=== PATIENT | male | born 1955 | race Caucasian/White ===

== ENCOUNTER 2020-09-15 08:07 | Outpatient (REF) | payer OTHER, SELFPAY ==
[2020-09-15 08:55] LABS: MANUAL DIFF FLAG NO
[2020-09-15 08:59] LABS: Basophils Percent Auto 0.4 % (0-2); Eosinophils Absolute Auto 0.1 X10*3/uL (0.0-0.4); Eosinophils Percent Auto 1.9 % (0-4); Hematocrit 42.1 % (42-52); Hemoglobin 14.4 g/dl (14.0-18.0); Imm Gran Abs Auto 0.01 X10*3/uL (0.00-0.03); Imm Gran Pct Auto 0.2 % (0.0-0.4); Lymphocytes Absolute Auto 2.2 X10*3/uL (1.2-4.9); Lymphocytes Percent Auto 41.8 % (20-40); Mean Corpuscular HGB Conc 34.2 g/dl (31.0-36.0); Mean Corpuscular Hemoglobin 30.4 pg (27.0-33.0); Mean Corpuscular Volume 88.8 fL (80-98); Mean Platelet Volume 10.1 fL (9.4-12.4); Monocytes Absolute Auto 0.4 X10*3/uL (0.1-1.2); Monocytes Percent Auto 8.6 % (2-11); Neutrophils Absolute Auto 2.4 X10*3/uL (2.0-8.3); Neutrophils Percent Auto 47.1 % (45-73); Platelet Count 252 X10*3/uL (160-400); Red Blood Count 4.74 X10*6/uL (4.60-5.80); Red Cell Distribution Width 11.9 % (11.0-16.0); White Blood Count 5.1 X10*3/uL (4.8-10.8)
[2020-09-15 09:31] LABS: Alanine Aminotransferase 18 U/L (0-40); Albumin Level 4.1 g/dL (3.5-5.0); Alkaline Phosphatase 57 U/L (39-117); Aspartate Amino Transferase 19 U/L (5-37); Bilirubin Total 0.7 mg/dL (0.0-1.0); Cholesterol 195 mg/dL; Estimated Glomerular Filt Rate > 60; Glucose Fasting 93 mg/dL (60-99); HDL Cholesterol 54 mg/dL; LDL Cholesterol Calculated 129 mg/dl; Total Protein 7.2 g/dL (6.5-8.0); Triglycerides 60 mg/dL
[2020-09-15 09:47] LABS: Anion Gap 11 (12-20); Blood Urea Nitrogen 14 mg/dL (9-16); Calcium 8.7 mg/dL (8.4-10.2); Carbon Dioxide 29 mmol/L (22-29); Chloride 102 mmol/L (96-108); Potassium 4.4 mmol/l (3.3-5.1); Sodium 138 mmol/L (135-145)
[2020-09-15 09:52] LABS: Prostate Specific Antigen 0.96 ng/mL (<0.05-4.0)
== END 2020-09-15 08:08 | disposition home or self-care (01) ==
LOC: HO.LAB 08:07
PROVIDERS: PCP Internal Medicine Medical Oncology; Visit Provider Internal Medicine Medical Oncology
DX: Z00.00 Encounter for general adult medical examination without abnormal findings (principal); E78.5 Hyperlipidemia, unspecified
CPT/HCPCS: 36415; 80053; 80061; 84153; 85025

== ENCOUNTER 2021-07-28 08:59 | Outpatient (REF) | payer OTHER, SELFPAY ==
[2021-07-28 10:01] LABS: MANUAL DIFF FLAG NO
[2021-07-28 10:11] LABS: Basophils Percent Auto 0.2 % (0-2); Eosinophils Absolute Auto 0.2 X10*3/uL (0.0-0.4); Eosinophils Percent Auto 2.7 % (0-4); Hematocrit 42.6 % (42-52); Hemoglobin 14.3 g/dl (14.0-18.0); Imm Gran Abs Auto 0.01 X10*3/uL (0.00-0.03); Imm Gran Pct Auto 0.2 % (0.0-0.4); Lymphocytes Percent Auto 36.2 % (20-40); Mean Corpuscular HGB Conc 33.6 g/dl (31.0-36.0); Mean Corpuscular Volume 89.5 fL (80-98); Mean Platelet Volume 10.3 fL (9.4-12.4); Monocytes Absolute Auto 0.6 X10*3/uL (0.1-1.2); Monocytes Percent Auto 10.2 % (2-11); Neutrophils Absolute Auto 2.8 X10*3/uL (2.0-8.3); Neutrophils Percent Auto 50.5 % (45-73); Platelet Count 261 X10*3/uL (160-400); Red Blood Count 4.76 X10*6/uL (4.60-5.80); Red Cell Distribution Width 12.2 % (11.0-16.0); White Blood Count 5.5 X10*3/uL (4.8-10.8)
[2021-07-28 10:26] LABS: Alanine Aminotransferase 18 U/L (0-40); Albumin Level 4.2 g/dL (3.5-5.0); Alkaline Phosphatase 57 U/L (39-117); Anion Gap 11 (12-20); Aspartate Amino Transferase 17 U/L (5-37); Bilirubin Total 0.4 mg/dL (0.0-1.0); Blood Urea Nitrogen 13 mg/dL (9-16); Calcium 9.6 mg/dL (8.4-10.2); Carbon Dioxide 30 mmol/L (22-29); Chloride 106 mmol/L (96-108); Cholesterol 202 mg/dL; Estimated Glomerular Filt Rate > 60; Glucose Fasting 97 mg/dL (60-99); HDL Cholesterol 54 mg/dL; LDL Cholesterol Calculated 138 mg/dl; Potassium 5.6 mmol/L (3.3-5.1); Sodium 141 mmol/L (135-145); Total Protein 7.3 g/dL (6.5-8.0); Triglycerides 52 mg/dL
[2021-07-28 11:07] LABS: Prostate Specific Antigen 0.92 ng/mL (<0.05-4.0)
== END 2021-07-28 09:00 | disposition home or self-care (01) ==
LOC: HO.LAB 08:59
PROVIDERS: PCP Internal Medicine Medical Oncology; Visit Provider Internal Medicine Medical Oncology
DX: Z00.00 Encounter for general adult medical examination without abnormal findings (principal)
CPT/HCPCS: 36415; 80053; 80061; 84153; 85025

== ENCOUNTER 2021-08-15 14:07 | Outpatient (REF) | payer OTHER, SELFPAY ==
--- NOTE | ~2021-08-15 | XR_ITS ---
EXAMINATION: XR CHEST CLINICAL INFORMATION: Chest pain. Neck pain. COMPARISON: Chest radiograph dated 08/06/2019. TECHNIQUE: 2 views of the chest were obtained. FINDINGS: Pectus excavatum is redemonstrating with slight opacity overlying the right chest, unchanged. No new airspace consolidation. Healed left rib fractures. No pleural effusion or pneumothorax. Stable cardiomediastinal silhouette. XR/XR chest 2V IMPRESSION: No acute cardiopulmonary findings.
--- NOTE | ~2021-08-15 | XR_ITS ---
EXAMINATION: XR CERVICAL SPINE CLINICAL INFORMATION: Chest pain. Neck pain. COMPARISON: None TECHNIQUE: AP, lateral, open-mouth, and foraminal views of the cervical spine. FINDINGS: Normal vertebral body alignment. The cervical lordosis is maintained. No acute fracture or subluxation. Normal atlantoaxial alignment. No loss of vertebral body height. Loss of intervertebral disc height with tiny endplate osteophytes at C5-C6. No lytic or blastic osseous lesion. Unremarkable prevertebral soft tissues. XR/XR cervical spine 3V IMPRESSION: Mild degenerative disc disease at C5-C6.
== END 2021-08-15 14:08 | disposition home or self-care (01) ==
LOC: HO.XRAY 14:07
PROVIDERS: PCP Internal Medicine Medical Oncology; Visit Provider Internal Medicine Medical Oncology
DX: R07.9 Chest pain, unspecified (principal); M54.2 Cervicalgia
CPT/HCPCS: 71046; 72040

== ENCOUNTER 2022-07-17 09:37 | Outpatient (REF) | payer OTHER, SELFPAY ==
[2022-07-17 09:46] LABS: MANUAL DIFF FLAG NO
[2022-07-17 10:46] LABS: Basophils Percent Auto 0.3 % (0-2); Eosinophils Absolute Auto 0.2 X10*3/uL (0.0-0.4); Eosinophils Percent Auto 2.3 % (0-4); Imm Gran Abs Auto 0.01 X10*3/uL (0.00-0.03); Imm Gran Pct Auto 0.1 % (0.0-0.4); Lymphocytes Absolute Auto 2.4 X10*3/uL (1.2-4.9); Lymphocytes Percent Auto 32.4 % (20-40); Mean Corpuscular HGB Conc 34.1 g/dl (31.0-36.0); Mean Corpuscular Hemoglobin 29.8 pg (27.0-33.0); Mean Corpuscular Volume 87.3 fL (80.0-98.0); Mean Platelet Volume 9.3 fL (9.4-12.4); Monocytes Absolute Auto 0.6 X10*3/uL (0.1-1.2); Monocytes Percent Auto 8.4 % (2-11); Neutrophils Absolute Auto 4.3 x10*3/uL (2.0-8.3); Neutrophils Percent Auto 56.5 % (45-73); Platelet Count 273 X10*3/uL (160-400); Red Blood Count 5.04 X10*6/uL (4.60-5.80); Red Cell Distribution Width 12.6 % (11.0-16.0); White Blood Count 7.5 X10*3/uL (4.8-10.8)
[2022-07-17 11:17] LABS: Cholesterol 185 mg/dL; HDL Cholesterol 60 mg/dL; LDL Cholesterol Calculated 116 mg/dl; Triglycerides 48 mg/dL
[2022-07-17 11:29] LABS: Prostate Specific Antigen 0.78 ng/mL (<0.05-4.0)
== END 2022-07-17 09:38 | disposition home or self-care (01) ==
LOC: HO.LAB 09:37
PROVIDERS: PCP Internal Medicine Medical Oncology; Visit Provider Internal Medicine Medical Oncology
DX: Z00.00 Encounter for general adult medical examination without abnormal findings (principal); Z12.5 Encounter for screening for malignant neoplasm of prostate
CPT/HCPCS: 36415; 80061; 84153; 85025

== ENCOUNTER 2022-08-28 12:18 | Outpatient (REF) | payer OTHER, SELFPAY ==
[2022-08-28 13:40] LABS: MANUAL DIFF FLAG NO
[2022-08-28 13:52] LABS: Basophils Percent Auto 0.2 % (0-2); Eosinophils Absolute Auto 0.1 X10*3/uL (0.0-0.4); Eosinophils Percent Auto 0.4 % (0-4); Hematocrit 41.3 % (42.0-52.0); Hemoglobin 14.2 g/dl (14.0-18.0); Imm Gran Abs Auto 0.06 X10*3/uL (0.00-0.03); Imm Gran Pct Auto 0.5 % (0.0-0.4); Lymphocytes Absolute Auto 1.4 X10*3/uL (1.2-4.9); Lymphocytes Percent Auto 10.2 % (20-40); Mean Corpuscular HGB Conc 34.4 g/dl (31.0-36.0); Mean Corpuscular Hemoglobin 30.2 pg (27.0-33.0); Mean Corpuscular Volume 87.9 fL (80.0-98.0); Mean Platelet Volume 9.8 fL (9.4-12.4); Monocytes Absolute Auto 0.9 X10*3/uL (0.1-1.2); Monocytes Percent Auto 6.7 % (2-11); Neutrophils Absolute Auto 10.8 x10*3/uL (2.0-8.3); Platelet Count 275 X10*3/uL (160-400); Red Cell Distribution Width 12.8 % (11.0-16.0); White Blood Count 13.2 X10*3/uL (4.8-10.8)
[2022-08-28 14:31] LABS: Alanine Aminotransferase 16 U/L (0-40); Albumin Level 4.2 g/dL (3.5-5.0); Alkaline Phosphatase 68 U/L (39-117); Anion Gap 17 (12-20); Aspartate Amino Transferase 15 U/L (5-37); Bilirubin Total 0.8 mg/dL (0.0-1.0); Blood Urea Nitrogen 14 mg/dL (9-16); Calcium 9.4 mg/dL (8.4-10.2); Carbon Dioxide 28 mmol/L (22-29); Chloride 99 mmol/L (96-108); Estimated Glomerular Filt Rate > 60; Glucose Random 81 mg/dL (60-115); Potassium 4.7 mmol/L (3.3-5.1); Sodium 139 mmol/L (135-145); Total Protein 7.2 g/dL (6.5-8.0)
[2022-08-28 14:45] LABS: Erythrocyte Sedimentation Rate 23 MM/HR (0-15)
== END 2022-08-28 12:19 | disposition home or self-care (01) ==
LOC: HO.10HDL 12:18
PROVIDERS: Visit Provider Internal Medicine Medical Oncology
DX: R10.31 Right lower quadrant pain (principal); R05.9 Cough, unspecified; K37 Unspecified appendicitis
CPT/HCPCS: 36415; 80053; 85025; 85652

== ENCOUNTER 2022-09-06 06:06 | Outpatient (REF) | payer OTHER, SELFPAY ==
--- NOTE | ~2022-09-06 | CT_ITS ---
EXAMINATION: CT ABDOMEN AND PELVIS WITH CONTRAST CLINICAL INFORMATION: Right lower quadrant pain and fever. COMPARISON: None TECHNIQUE: Multidetector volumetric images were obtained from the superior aspect of the liver through the pubic symphysis following administration 85 mL of Omnipaque 350 intravenous contrast. Sagittal and coronal reformatted images were obtained on the technologist's workstation. Oral contrast: Yes This CT examination was performed using dose optimization techniques as appropriate, variously including the following: *Automated exposure control *Adjustment of mA and/or kV according to patient size (this includes techniques or standardized protocols for targeted exams where dose is matched to indication/reason for exam; i.e. extremities or head) *Use of iterative reconstruction technique DLP: 255 mGy-cm FINDINGS: LUNG BASES: The visualized lung bases are unremarkable. LIVER, GALLBLADDER, AND BILIARY TREE: The liver is normal in size, shape, and attenuation. No biliary ductal dilatation. There are a few subcentimeter hypoattenuating lesions seen scattered in the liver parenchyma which are too small to fully characterize.. The gallbladder is unremarkable with no evidence of radiopaque gallstones, gallbladder wall thickening, or obvious pericholecystic inflammatory changes. PANCREAS: Unremarkable. SPLEEN: Unremarkable. ADRENAL GLANDS: Unremarkable. KIDNEYS AND URETERS: The kidneys are normal in size, shape, and attenuation. No hydronephrosis, hydroureter, or calculi seen. No perinephric stranding. BLADDER: Partially distended with prominent circumferential wall thickening. GASTROINTESTINAL TRACT: The stomach is unremarkable. Normal caliber of the small bowel. There is no obstruction. No colonic wall thickening or inflammatory change. Large colonic stool burden. The appendix is dilated measuring 1 cm. There appears to be appendiceal wall thickening with no internal fluid. Very faint adjacent inflammation of the fat surrounding the appendix. No fluid collection or free air. ABDOMINAL WALL: No significant hernia is appreciated. LYMPH NODES: Normal. VASCULAR: Unremarkable. PELVIC VISCERA: Enlarged prostate measures 5.6 cm transverse. OSSEOUS STRUCTURES: No acute or suspicious osseous abnormality. Mild degenerative changes in the hips. CT/CT abdomen pelvis w IV con IMPRESSION: 1. Dilated appendix with wall thickening and mild adjacent inflammation. This is concerning for acute appendicitis. 2. Prominent circumferential wall thickening of the bladder. This could be associated with cystitis or chronic outlet obstruction. 3. Large colonic stool burden. Fleischner guidelines were followed.
[2022-09-06] MEDS: Barium Sulfate Oral (Vanilla) 450 ML ORAL.SUSP 900 ML PO (08:20)
[2022-09-06] MEDS: iohexoL 350 MG/ML 100 ML INFUS..BTL IV (08:21)
== END 2022-09-06 06:07 | disposition home or self-care (01) ==
LOC: HO.CT 06:06
PROVIDERS: PCP Internal Medicine Medical Oncology; Visit Provider Internal Medicine Medical Oncology
DX: R10.31 Right lower quadrant pain (principal); R50.9 Fever, unspecified
CPT/HCPCS: 74177; Q9967

== ENCOUNTER 2022-09-07 06:30 | Day surgery (SDC) | payer OTHER, SELFPAY ==
[2022-09-07] VITALS (11 sets, daily range): BP systolic 107–146; BP diastolic 62–87; PULSE 46–62; RESP 15–20; TEMP 36.3–37.2; O2SAT 98–100; BMI 19.3
[2022-09-07 06:48] LABS: MANUAL DIFF FLAG NO
[2022-09-07 06:49] LABS: Basophils Percent Auto 0.4 % (0-2); Eosinophils Absolute Auto 0.1 X10*3/uL (0.0-0.4); Eosinophils Percent Auto 1.8 % (0-4); Hematocrit 41.1 % (42.0-52.0); Hemoglobin 13.8 g/dl (14.0-18.0); Imm Gran Abs Auto 0.03 X10*3/uL (0.00-0.03); Imm Gran Pct Auto 0.4 % (0.0-0.4); Lymphocytes Percent Auto 28.8 % (20-40); Mean Corpuscular HGB Conc 33.6 g/dl (31.0-36.0); Mean Corpuscular Hemoglobin 29.9 pg (27.0-33.0); Mean Corpuscular Volume 89.2 fL (80.0-98.0); Mean Platelet Volume 8.9 fL (9.4-12.4); Monocytes Absolute Auto 0.7 X10*3/uL (0.1-1.2); Monocytes Percent Auto 10.5 % (2-11); Neutrophils Absolute Auto 3.9 x10*3/uL (2.0-8.3); Neutrophils Percent Auto 58.1 % (45-73); Platelet Count 321 X10*3/uL (160-400); Red Blood Count 4.61 X10*6/uL (4.60-5.80); White Blood Count 6.8 X10*3/uL (4.8-10.8)
[2022-09-07 07:06] LABS: Alanine Aminotransferase 42 U/L (0-40); Alkaline Phosphatase 47 U/L (39-117); Anion Gap 16 (12-20); Aspartate Amino Transferase 30 U/L (5-37); Bilirubin Total 0.5 mg/dL (0.0-1.0); Blood Urea Nitrogen 11 mg/dL (9-16); Calcium 8.7 mg/dL (8.4-10.2); Carbon Dioxide 26 mmol/L (22-29); Chloride 104 mmol/L (96-108); Creatinine Clr Calc Pharmacy 70.2; Estimated Glomerular Filt Rate > 60; Glucose Random 96 mg/dL (60-115); Lipase 21 U/L (8-78); Potassium 4.6 mmol/L (3.3-5.1); Sodium 141 mmol/L (135-145); Total Protein 6.6 g/dL (6.5-8.0)
--- NOTE | 2022-09-07 07:18 | ED.ABDPAIN ---
HPI - Abdominal Pain General Chief Complaint: Abdominal Pain Stated Complaint: Abd pain Time Seen by Provider: 09/07/22 07:17 Source: patient Mode of arrival: ambulatory Limitations: no limitations History of Present Illness HPI narrative: 66 yo male no sig PMH here with c/o RLQ pain for the past week with a fever of 102. He did start on cipro and flagyl but symptoms persisted with lingering cramps and anorexia. PCP did CT Scan which showed appendicitis yesterday. Referred to ED MD elicited complaint: abdominal pain Pertinent past history: none Onset (ago): week(s) (last week) Pain Consistency: intermittent Location: RLQ Severity: mild Quality: cramping Radiation: none Migration to: no migration Exacerbating factors: nothing Relieving factors: nothing Context: other (started out with cramping and fever of 102) Associated symptoms: fever and anorexia Treatments prior to arrival: other (has been on cipro and flagyl today would be last day CT scan still showing appendicitis) Related Data Allergies Allergy/AdvReac Type Severity Reaction Status Date / Time No Known Allergies Allergy Verified 09/07/22 06:37 Review of Systems Review of Systems Constitutional : No Weight loss, No Fever, No Chills, pos anorexia ENT/Mouth : No sore throat, No Rhinorrhea Eyes: No Swelling, No Redness Cardiovascular : No Chest Pain, No SOB, NoEdema Respiratory : No Cough, No Sputum, No Wheezing Gastrointestinal : no Nausea, no Vomiting, no Diarrhea, positive abdominal Pain, No Hematochezia, No Melena Genitourinary : No Dysuria, No Urinary Frequency, No Hematuria, No Urgency Musculoskeletal : No joint pain, No Myalgias, No Joint Swelling Skin : No Skin Lesions, No rash Neuro : No Weakness, No Numbness, No Dizziness, No Headache Psych : No Anxiety/Panic, No Depression Heme/Lymph: No Bruising, No Lymphadenopathy Endocrine : No Polyuria, No Polydipsia All other systems reviewed and are negative. [facility] Past Medical History Attestation statement: The following information was validated with the patient. Medical History (Updated 09/07/22 @ 08:19 by Brando Barreto MD) No pertinent past medical history Spontaneous pneumothorax Surgical History (Updated 09/07/22 @ 08:19 by Brando Barreto MD) H/O inguinal hernia repair History of thoracic surgery Social History Social History (Updated 09/07/22 @ 07:30 by Anette Mcgowan DO) Patient Tobacco Use Status: Never used Tobacco Smoked in Last 30 Days: No Substance Use Type: Marijuana Advance Directives: No Advance Directives Information Provided: Yes Physical Exam ED Vital Signs: Vital Signs - 24 hr 09/07/22 06:33 09/07/22 07:44 Temperature 98.9 F 98.6 F Pulse Rate 55 50 Respiratory Rate 15 16 Blood Pressure 138/63 125/75 Pulse Oximetry 98 100 Oxygen Delivery Method Room Air Room Air BMI result Body Mass Index 19.3 Appearance: Alert. Oriented X3. No acute distress. Eyes: Pupils equal, round and reactive to light. ENT: Pharynx normal. Neck: Normal inspection. Neck supple. CVS: Normal heart rate and rhythm. Pulses normal. Respiratory: No respiratory distress. Breath sounds normal. Abdomen: Soft and mild RLQ ttp and mild Rovsing's sign no rebound or guarding Skin: Skin warm and dry. Normal skin color. Normal skin turgor. Extremities: No lower extremity edema. No calf ttp Neuro: Oriented X 3. No motor deficit. No sensory deficit. Course Course Course Narrative: Dr. Barreto to admit patient MDM - Abdominal Pain MDM Narrative Medical decision making narrative: 66 yo male with hx of lower abdominal pain prior fevers has been on cipro and flagyl but anorexia and cramps persist. CT scan shows appendiceal inflammation and dilation - message sent to general surgery would expect that given persistent symptoms he likely will fail coming off antibitoics but that is to be determined by Dr. Barreto. Dispo per his input. Will give dose of zosyn in ED. Lab Data Result diagrams: 09/07/22 06:40 09/07/22 06:40 Labs: Lab Results 09/07/22 09/07/22 09/07/22 Range/Units 06:40 06:40 07:38 WBC 6.8 (4.8-10.8) X10*3/uL RBC 4.61 (4.60-5.80) X10*6/uL Hgb 13.8 L (14.0-18.0) g/dl Hct 41.1 L (42.0-52.0) % MCV 89.2 (80.0-98.0) fL MCH 29.9 (27.0-33.0) pg MCHC 33.6 (31.0-36.0) g/dl RDW 13.0 (11.0-16.0) % Plt Count 321 (160-400) X10*3/uL MPV 8.9 L (9.4-12.4) fL Immature Gran % (Auto) 0.4 (0.0-0.4) % Neut % (Auto) 58.1 (45-73) % Lymph % (Auto) 28.8 (20-40) % [place] % (Auto) 10.5 (2-11) % Eos % (Auto) 1.8 (0-4) % Baso % (Auto) 0.4 (0-2) % Lymph # (Auto) 2.0 (1.2-4.9) X10*3/uL [place] # (Auto) 0.7 (0.1-1.2) X10*3/uL Eos # (Auto) 0.1 (0.0-0.4) X10*3/uL Baso # (Auto) 0.0 (0.0-0.2) X10*3/uL Abs Immat Gran (auto) 0.03 (0.00-0.03) X10*3/uL Absolute Neuts (auto) 3.9 (2.0-8.3) x10*3/uL Absolute Nucleated RBC 0.000 (0.0-0.012) X10*3/uL Nucleated RBC % (auto) 0.0 (0.0-0.2) /100WBC PT 13.6 H (10.0-13.1) SEC INR 1.2 H (0.9-1.1) APTT 32.9 (26.0-36.4) SEC Sodium 141 (135-145) mmol/L Potassium 4.6 (3.3-5.1) mmol/L Chloride 104 (96-108) mmol/L Carbon Dioxide 26 (22-29) mmol/L Anion Gap 16 (12-20) BUN 11 (9-16) mg/dL Creatinine 0.92 (0.5-1.4) mg/dL Estim Creat Clear Calc 70.2 Estimated GFR > 60 Random Glucose 96 (60-115) mg/dL Calcium 8.7 D (8.4-10.2) mg/dL Total Bilirubin 0.5 (0.0-1.0) mg/dL AST 30 D (5-37) U/L ALT 42 H (0-40) U/L Alkaline Phosphatase 47 D (39-117) U/L Total Protein 6.6 (6.5-8.0) g/dL Albumin 4.0 (3.5-5.0) g/dL Lipase 21 (8-78) U/L COVID-19 ([facility]) (Negative) COVID-19 Clin Com 09/07/22 Range/Units 07:38 WBC (4.8-10.8) X10*3/uL RBC (4.60-5.80) X10*6/uL Hgb (14.0-18.0) g/dl Hct (42.0-52.0) % MCV (80.0-98.0) fL MCH (27.0-33.0) pg MCHC (31.0-36.0) g/dl RDW (11.0-16.0) % Plt Count (160-400) X10*3/uL MPV (9.4-12.4) fL Immature Gran % (Auto) (0.0-0.4) % Neut % (Auto) (45-73) % Lymph % (Auto) (20-40) % [place] % (Auto) (2-11) % Eos % (Auto) (0-4) % Baso % (Auto) (0-2) % Lymph # (Auto) (1.2-4.9) X10*3/uL [place] # (Auto) (0.1-1.2) X10*3/uL Eos # (Auto) (0.0-0.4) X10*3/uL Baso # (Auto) (0.0-0.2) X10*3/uL Abs Immat Gran (auto) (0.00-0.03) X10*3/uL Absolute Neuts (auto) (2.0-8.3) x10*3/uL Absolute Nucleated RBC (0.0-0.012) X10*3/uL Nucleated RBC % (auto) (0.0-0.2) /100WBC PT (10.0-13.1) SEC INR (0.9-1.1) APTT (26.0-36.4) SEC Sodium (135-145) mmol/L Potassium (3.3-5.1) mmol/L Chloride (96-108) mmol/L Carbon Dioxide (22-29) mmol/L Anion Gap (12-20) BUN (9-16) mg/dL Creatinine (0.5-1.4) mg/dL Estim Creat Clear Calc Estimated GFR Random Glucose (60-115) mg/dL Calcium (8.4-10.2) mg/dL Total Bilirubin (0.0-1.0) mg/dL AST (5-37) U/L ALT (0-40) U/L Alkaline Phosphatase (39-117) U/L Total Protein (6.5-8.0) g/dL Albumin (3.5-5.0) g/dL Lipase (8-78) U/L COVID-19 ([facility]) Negative (Negative) COVID-19 Clin Com See Note Discharge Plan Discharge Clinical Impression: Acute appendicitis Qualifiers: Acute appendicitis type: with localized peritonitis Appendicitis gangrene presence: without gangrene Appendicitis perforation presence: without perforation Appendicitis abscess presence: without abscess Qualified Code(s): K35.30 - Acute appendicitis with localized peritonitis, without perforation or gangrene Patient Disposition: Admitted As Inpatient
[2022-09-07] MEDS: 0.9 % Sodium Chloride 1,000 ML 999 ML IV (07:40)
[2022-09-07] MEDS: Piperacillin Sodium/Tazobactam 3.375 GM in 0.9 % Sodium Chloride 50 ML IV (07:43)
[2022-09-07 07:56] LABS: INTERNATIONAL NORM RATIO 1.2 (0.9-1.1); Prothrombin Time 13.6 SEC (10.0-13.1)
[2022-09-07 07:59] LABS: COVID-19 Test Negative (Negative); IDNOW Serial# 16C4AD1C; Partial Thromboplastin Time 32.9 SEC (26.0-36.4)
--- NOTE | 2022-09-07 08:15 | PM.HPGS ---
History of Present Illness History of Present Illness Date of Service: 09/07/22 Chief complaint: Abd pain Narrative: Jeffrey Peoples is a 66 year old male presenting with complaints of abdominal pain beginning in the periumbilical region and then radiating to the bilateral abdomen. The pain began 1 week ago. He was subsequently started on antibiotics as an outpatient and arrangements made for CT abdomen and pelvis. The CT was performed yesterday morning and revealed thickening of the appendix without evidence of periappendiceal fluid or abscess. Findings were suggestive of early appendicitis. Patient's initial WBC earlier in the week was elevated but is now normal. He continues to have abdominal pain in the right lower quadrant despite being on the antibiotics. He was sent to the emergency department for further evaluation And possible appendectomy. Review of Systems Review of Systems: Yes all other systems are reviewed and are negative Constitutional: Constitutional: Denies chills, Denies fever(s), Denies headache(s), Denies poor appetite and Denies weakness ENT: Denies headache(s) Cardiovascular: Cardiovascular: Denies chest pain, Denies irregular heart rhythm, Denies palpitations and Denies dyspnea Respiratory: Respiratory: Denies cough, Denies excessive phlegm production and Denies dyspnea Gastrointestinal: Gastrointestinal: Reports abdominal pain, Denies bloating, Denies change in bowel habits, Denies constipation, Denies heartburn, Denies diarrhea, Reports nausea and Reports vomiting Genitourinary: Genitourinary: Denies difficulty urinating and Denies urinary frequency Musculoskeletal: Musculoskeletal: Denies back pain, Denies muscle weakness and Denies numbness Integumentary/Breasts: Skin/Breast: Denies changing lesions and Denies unusual bruising Neurologic: Denies headache(s), Denies numbness, Denies paresthesias and Denies weakness Psychiatric: Psychiatric: Denies anxiety and Denies depression Endocrine: Endocrine: Denies palpitations Hematologic/Lymphatic: Hematologic/Lymphatic: Denies lymphadenopathy PMFSH Past Medical History Medical History (Updated 09/07/22 @ 08:19 by Brando Barreto MD) No pertinent past medical history Spontaneous pneumothorax Surgical History Surgical History (Updated 09/07/22 @ 08:19 by Brando Barreto MD) H/O inguinal hernia repair History of thoracic surgery Social History Social History (Updated 09/07/22 @ 07:30 by Anette [place], DO) Patient Tobacco Use Status: Never used Tobacco Smoked in Last 30 Days: No Use of substances other than those prescribed or required for medical reasons: Yes Substance Use Type: Marijuana Substance Use Type Other:: smoke maybe twice per year Substance Use Frequency: Occasionally Are you DNR?: No Advance Directives: No Advance Directives Information Provided: Yes Meds Allergies Allergy/AdvReac Type Severity Reaction Status Date / Time No Known Allergies Allergy Verified 09/07/22 06:37 Active Medications: Current Medications Sodium Chloride (Ns) 1,000 mls @ 999 mls/hr IV .Q1H1M OENL Stop: 09/07/22 08:30 Last Admin: 09/07/22 07:40 Dose: 999 mls/hr Home Medications Medication Instructions Recorded Confirmed Last Taken Type No Known Home Meds 09/07/22 09/07/22 Unknown History Physical Exam Vital Signs: Vital Signs: Last Vital Signs Temp 98.6 F 09/07/22 07:44 Pulse 50 09/07/22 07:44 Resp 16 09/07/22 07:44 BP 125/75 09/07/22 07:44 Pulse Ox 100 09/07/22 07:44 O2 Del Method 09/07/22 07:44 BMI result Body Mass Index 19.3 Const: General: cooperative and no acute distress Nutritional Appearance: well nourished Orientation/consciousness: patient oriented x3 Limitations: no limitations HEENT: Head: Yes normocephalic and Yes atraumatic Ears: hearing grossly normal bilaterally Resp: Effort & Inspection: normal respiratory effort, no audible wheezes, no cough and no respiratory distress Cardio: Jugular venous distension: no JVD GI: Inspection: Yes normal to inspection Palpation (GI): Soft to palpation, Tenderness to palpation present (GI) in the RLQ, no guarding and not rigid Percussion: Yes normal to percussion Auscultation: normal bowel sounds Skin: Other: Warm, dry, no rash Neuro: General: patient oriented x3 Extrem: General: Yes no clubbing, cyanosis or edema Results Results Labs: Short CBC 09/07/22 Range/Units 06:40 WBC 6.8 (4.8-10.8) X10*3/uL Hgb 13.8 L (14.0-18.0) g/dl Hct 41.1 L (42.0-52.0) % Plt Count 321 (160-400) X10*3/uL BMP 09/07/22 06:40 Sodium 141 Potassium 4.6 Chloride 104 Carbon Dioxide 26 BUN 11 Creatinine 0.92 Calcium 8.7 D Liver Function 09/07/22 Range/Units 06:40 Total Bilirubin 0.5 (0.0-1.0) mg/dL AST 30 D (5-37) U/L ALT 42 H (0-40) U/L Alkaline Phosphatase 47 D (39-117) U/L Albumin 4.0 (3.5-5.0) g/dL Assessment and Plan (1) Acute appendicitis: Qualifiers: Acute appendicitis type: with localized peritonitis Appendicitis abscess presence: without abscess Appendicitis gangrene presence: without gangrene Appendicitis perforation presence: without perforation Qualified Code(s): K35.30 - Acute appendicitis with localized peritonitis, without perforation or gangrene Status: Acute Plan 66-year-old male patient with a one-week history of abdominal pain radiating to the right lower quadrant. On examination the patient is tender in the right lower quadrant over McBurney's point. CT reveals a thickened appendix in a retrocecal location. Findings are consistent with early appendicitis. Laboratories were initially elevated but are now normal after being on antibiotics. I recommended a laparoscopic or possible open appendectomy. After a review of the procedure, risks, and alternatives, he consents to the surgery. He will be added onto the operative schedule for today. Quality Stroke Does the patient have a stroke diagnosis?: No VTE Prior VTE?: No VTE Risk Level:: Surgical - moderate VTE Device Contraindication: N/A - Device Ordered VTE Drug Contraindication: Treatment Not Indicated Procedures Date of Service Date of Service: 09/07/22
--- NOTE | 2022-09-07 08:38 | PC.NURSE ---
Dr Jeane Worrell at bedside for consult for removal of appendix . patient last oral intake 2100 .patient aware of plan of care .
--- NOTE | 2022-09-07 09:45 | PC.NURSE ---
Report given to Beto BERUMEN in Short stay for procedure . patient aware of plan of care .
--- NOTE | 2022-09-07 10:07 | PHA.MEDREC ---
Pharmacy Consult ? Medication Reconciliation Pharmacy has completed the medication reconciliation. Pt was recently on 10 day courses of both metronidazole 500mg TID and ciprofloxacin 500mg BID but today 09/07/22 would have been his last day. No other medications/vitamins/supplements.
[2022-09-07] MEDS: Lactated Ringers 1,000 ML 100 ML IVCONT ×2 (10:55→15:34)
--- NOTE | 2022-09-07 12:22 | HO.ANESPROP2 ---
[facility] Active Problems Active Problems: All Active Problems (Updated 09/07/22 @ 08:19 by Brando Barreto MD) Acute appendicitis (Acute) Past Medical History Medical History (Updated 09/07/22 @ 08:19 by Brando Barreto MD) No pertinent past medical history Spontaneous pneumothorax Surgical History Surgical History (Updated 09/07/22 @ 08:19 by Brando Barreto MD) H/O inguinal hernia repair History of thoracic surgery History of Problems with Anesthesia: No Social History Social History (Updated 09/07/22 @ 07:30 by Anette Mcgowan DO) Patient Tobacco Use Status: Never used Tobacco Smoked in Last 30 Days: No Use of substances other than those prescribed or required for medical reasons: Yes Substance Use Type: Marijuana Substance Use Type Other:: smoke maybe twice per year Substance Use Frequency: Occasionally Are you DNR?: No Advance Directives: No Advance Directives Information Provided: Yes Meds Allergies Allergy/AdvReac Type Severity Reaction Status Date / Time No Known Allergies Allergy Verified 09/07/22 06:37 Active Medications: Current Medications Hydromorphone HCl (Hydromorphone Hcl 0.5 Mg/0.5 Ml Syringe) 0.5 mg IVPUSH Q3H PRN; Protocol PRN Reason: Pain, Severe (Pain Scale 7-10) Lactated Ringer's (Lr) 1,000 mls @ 100 mls/hr IVCONT .Q10H ONEL Last Admin: 09/07/22 10:55 Dose: 100 mls/hr Ondansetron HCl (Ondansetron Hcl 4 Mg/2 Ml Vial) 4 mg IVPUSH QID PRN PRN Reason: Nausea Pharmacy Consult (Consult Rx Perform Med Rec) 1 each MISCELLANE ONCE PRN PRN Reason: Consult order Home Medications Medication Instructions Recorded Confirmed Last Taken Type No Known Home Meds 09/07/22 09/07/22 Unknown History Exam Exam Date and Time: September 07, 2022 1222 Height,Weight and Vital Signs: Height 5 ft 10 in Weight 61.235 kg Last Vital Signs Temp 98.6 F 09/07/22 07:44 Pulse 50 09/07/22 07:44 Resp 16 09/07/22 07:44 BP 125/75 09/07/22 07:44 Pulse Ox 100 09/07/22 07:44 O2 Del Method 09/07/22 07:44 Pertinent Lab Results Pertinent Lab Results: Laboratory Tests 09/07/22 09/07/22 09/07/22 06:40 06:40 07:38 WBC 6.8 RBC 4.61 Hgb 13.8 L Hct 41.1 L MCV 89.2 MCH 29.9 MCHC 33.6 RDW 13.0 Plt Count 321 MPV 8.9 L Immature Gran % (Auto) 0.4 Neut % (Auto) 58.1 Lymph % (Auto) 28.8 [place] % (Auto) 10.5 Eos % (Auto) 1.8 Baso % (Auto) 0.4 Lymph # (Auto) 2.0 [place] # (Auto) 0.7 Eos # (Auto) 0.1 Baso # (Auto) 0.0 Abs Immat Gran (auto) 0.03 Absolute Neuts (auto) 3.9 Absolute Nucleated RBC 0.000 Nucleated RBC % (auto) 0.0 PT 13.6 H INR 1.2 H APTT 32.9 Sodium 141 Potassium 4.6 Chloride 104 Carbon Dioxide 26 Anion Gap 16 BUN 11 Creatinine 0.92 Estim Creat Clear Calc 70.2 Estimated GFR > 60 Random Glucose 96 Calcium 8.7 D Total Bilirubin 0.5 AST 30 D ALT 42 H Alkaline Phosphatase 47 D Total Protein 6.6 Albumin 4.0 Lipase 21 COVID-19 ([facility]) COVID-19 Clin Com 09/07/22 07:38 WBC RBC Hgb Hct MCV MCH MCHC RDW Plt Count MPV Immature Gran % (Auto) Neut % (Auto) Lymph % (Auto) [place] % (Auto) Eos % (Auto) Baso % (Auto) Lymph # (Auto) [place] # (Auto) Eos # (Auto) Baso # (Auto) Abs Immat Gran (auto) Absolute Neuts (auto) Absolute Nucleated RBC Nucleated RBC % (auto) PT INR APTT Sodium Potassium Chloride Carbon Dioxide Anion Gap BUN Creatinine Estim Creat Clear Calc Estimated GFR Random Glucose Calcium Total Bilirubin AST ALT Alkaline Phosphatase Total Protein Albumin Lipase COVID-19 ([facility]) Negative COVID-19 Clin Com See Note Airway Mallampati Class: III TM Dist: >3cm Neck ROM: Full Loose/Missing/Broken Teeth: No Heart: RRR Lungs: CTA Assessment and Plan Assessment Anesthesia Assessment: Anesthesia Plan Discussed and Chart Reviewed Final Anesthetic Review History of Problems with Anesthesia: No NPO: Yes ASA Class: II Final Preanesthetic Review: Meds/Allgs Chart Reviewed, Consent Obtained/Reviewed and Anes Risks/Benef Reviewed Patient Risk: Low Procedure Risk: Low Anesthetic Plan Anesthetic Plan: GA Disposition: Standard PACU
--- NOTE | 2022-09-07 13:49 | W.PM.OPN ---
Operative Note Operative Note Date of Service: 09/07/22 Narrative: Preoperative diagnosis: Acute appendicitis Postoperative diagnosis: Same Procedure: Laparoscopic appendectomy Surgeon: Brando Barreto MD Brakes Inspector:LEANDRO Rosales Anesthesia: General endotracheal Indications for procedure:66 year old male with pain in the right lower quadrant for one week treated with antibiotics found on CT to have acute appendicitis Operative findings:Mildly dilated appendix Specimen:appendix Estimated blood loss:<1 ml Complications: none Procedure details: Patient was brought to the OR and placed in a supine position. After administering general anesthesia the patient's abdomen was prepped with ChloraPrep and draped in a sterile fashion. A surgical time-out was called and consent confirmed. Patient received preoperative antibiotics and Venodyne boots were in place. Local anesthesia consisting of 0.75% Sensorcaine with epinephrine was infiltrated in periumbilical region. A 5 mm incision was made below the umbilicus and carried down through subcutaneous tissue. A Veress needle was then inserted while elevating abdominal cavity with towel clips. After a positive drop test the abdomen was insufflated to a pressure of 15 mm of mercury. The Veress needle was removed and a 5 mm trocar inserted. The camera was then inserted in the abdomen explored. A 2nd 5 mm trocars placed in the lower midline. A 12 mm trocar was then placed in the left lower quadrant. The patient was then placed in a Trendelenburg position and rotated to the left. The appendix was identified in the right lower quadrant and brought up using blunt dissecting clamps. The mesentery of the appendix was then divided using the LigaSure. The appendiceal artery was cauterized and divided using the LigaSure. Dissection was continued down to the base of the cecum. An Endo-KAY stapler with a purple reload was then used to divide the appendix at the base with the cecum. The appendix was then placed in Endo-Catch bag and brought out through the left lower quadrant incision. The abdomen was then irrigated with saline solution and suctioned dry. Wounds were checked for hemostasis. CO2 was then evacuated from the abdominal cavity and all trocars removed. Fascia was closed in the left lower quadrant incision using a [id number] 0 Polysorb suture. Skin was closed at all incisions using a subcuticular 4-0 Polysorb suture. Steri-Strips 2 x 2 gauze and Tegaderm were then applied. The patient tolerated the procedure well. Sponge, instrument, needle counts reported as correct. The patient was transferred to PACU in stable condition.
[2022-09-07] MEDS: oxyCODONE HCl Immed Release 5 MG TABLET PO (20:08)
[2022-09-08] MEDS: Lactated Ringers 1,000 ML 100 ML IVCONT (01:48)
[2022-09-08 02:40] VITALS: BP 118/57; PULSE 51; RESP 18; TEMP 36.1; O2SAT 99
[2022-09-08] MEDS: HYDROmorphone HCl 0.5 MG/0.5 ML SYRINGE IVPUSH (04:41)
[2022-09-08 06:56] VITALS: BP 115/64; PULSE 55; RESP 18; TEMP 35.5; O2SAT 98
--- NOTE | 2022-09-08 11:32 | PM.DS ---
DS: Providers Provider Date of Service: 09/08/22 Date of discharge: 09/08/22 Primary care physician: Umberto Koo MD DS: Diagnosis Discharge Diagnosis (1) Acute appendicitis: Start date: 09/07/22 Status: Acute DS: Summary Hospital Course Hospital Course: pt is a 66 year old male who was admitted with appendicitis and underwent lap appy uncomplicated after being treated with po antibx for several days preop. doing well postop tolerating po diet and ambulating and po pain meds. fu in [address] Barreto. Time Spent with Patient Time attestation: Total time spent providing and/or coordinating discharge services: Discharge coordination time: Less than 30 minutes Quality: Safe Use of Opioids Does Pt have an Active Cancer Diagnosis on the Problem List?: No Quality: Stroke Does the patient have a stroke diagnosis?: No Physical Exam Vital Signs: Vital Signs: Last Vital Signs Temp 96 F L 09/08/22 06:56 Pulse 55 09/08/22 06:56 Resp 18 09/08/22 06:56 BP 115/64 09/08/22 06:56 Pulse Ox 98 09/08/22 06:56 O2 Del Method 09/08/22 06:56 O2 Flow Rate 2 09/07/22 14:15 BMI result Body Mass Index 19.3 Resp: Effort & Inspection: normal respiratory effort Auscultation: clear to auscultation bilaterally Cardio: Rate: regular rate Rhythm: regular rhythm GI: Other: abdomen little distended mild tenderness DS: Data Data Completed and Pending Pending studies at discharge: Pending at discharge 09/07/22 13:35 Surgical [PTH] Routine Discharge Plan Discharge Patient Disposition: Home, Self-Care Referrals: Umberto Koo MD [Primary Care Provider] - 1 Week Brando Barreto MD [Physician] - 1 Week Discharge Medications: New oxycodone 5 mg tablet 5 mg PO Q4H PRN (Reason: pain (scale score 7-10)) Qty: 24 0RF Rx Instructions: Partial Fill upon patient request. Discharge Orders: Discharge Order (Routine); Ordered 09/08/22 Ordered By: Liss Preston Activity Restrictions/Additional Instructions: If the incision area is tender, you may apply an ice pack for short intervals (No more than 20 minutes on, followed by at least 20 minutes off). Do not apply heat. Do not use creams, lotions, or topical antibiotics unless instructed to do so by your surgeon. These can cause infection or allergic reaction. Ok to shower. Remove clear dressings 3 days following your procedure. You have steri strips (small white cloth strips) covering your incision- these will fall off ~1 week. No heavy lifting (>10lbs) or strenuous activity! Follow up in office with Dr. Barreto in 1 week. ([phone]) Call Your Doctor If: -Your temperature exceeds 101.5? F -You experience excessive pain or swelling -You have an unexpected reaction to medication -You have excessive bleeding -You experience continued vomiting/nausea -Your incision begins to separate -Your incision shows signs of infection such as increased redness, swelling, excessive pain, drainage (light blood or clear fluid is normal) or heat
--- NOTE | 2022-09-08 14:17 | MHC.CM.PN ---
PT DISCHARGED HOME TODAY PRIOR TO BEING SEEN BY CM PER RECORDS, PT IS FULLY INDEPENDENT, LIVES WITH HIS , WORKS AND DRIVES PCP: MARE SUAREZ NO HCP ON FILE PT DISCHARGED WITH NO SERVICES ORDERED AND ARRANGED HIS OWN TRANSPORTATION
--- NOTE | 2022-09-08 17:38 | HO.POSTANES ---
Post Anesthesia Evaluation Post Anesthesia Evaluation Vital Signs: Vital Signs Temp Pulse Resp BP Pulse Ox O2 Del Method 09/08/22 06:56 96 F L 55 18 115/64 98 Room Air Anesthesia: General Endotracheal-GETA Mental Status: Awake Pain Control: Satisfactory Nausea/Vomiting: None Hydration: Adequate Anesthesia-Related Issues: No Anes. Related Issues
== END 2022-09-08 13:31 | disposition home or self-care (01) ==
LOC: HO.ED 07:54 → HO.SSS 09:08 → HO.S3 14:26
PROVIDERS: Emergency Provider Emergency Medicine; PCP Internal Medicine Medical Oncology; Visit Provider Surgery
PROC: 0DTJ4ZZ Resection of Appendix, Percutaneous Endoscopic Approach (ICD-10-PCS; CPT 44970; principal; 2022-09-07 12:40)
DX: K35.30 Acute appendicitis with localized peritonitis, without perforation or gangrene (principal); R50.9 Fever, unspecified; Z87.09 Personal history of other diseases of the respiratory system; Z98.890 Other specified postprocedural states; F12.90 Cannabis use, unspecified, uncomplicated; Z20.822 Contact with and (suspected) exposure to COVID-19
CPT/HCPCS: 44970; 36415; 80053; 83690; 85025; 85610; 85730; 87635; 88304; 96361; 96365; 96366; 99284; 99285; J1100; J1170; J1885; J2250; J2405; J2543; J2795; J3010

== ENCOUNTER 2022-09-20 11:43 | Outpatient (REF) | payer OTHER, SELFPAY ==
[2022-09-20 15:05] LABS: CDiff Gene PCR POSITIVE (Negative)
[2022-09-20 15:34] LABS: Campylobacter Not Detected (Not Detect.); E. coli EAEC Not Detected (Not Detect.); E. coli EPEC Not Detected (Not Detect.); E. coli ETEC Not Detected (Not Detect.); Plesiomonas shigelloides Not Detected (Not Detect.); Salmonella Not Detected (Not Detect.); Vibrio Not Detected (Not Detect.); Vibrio Cholerae Not Detected (Not Detect.); Yersinia enterocolitica Not Detected (Not Detect.)
[2022-09-20 15:35] LABS: Adenovirus F 40/41 Not Detected (Not Detect.); Astrovirus Not Detected (Not Detect.); Cryptosporidium Not Detected (Not Detect.); Cyclospora cayetanensis Not Detected (Not Detect.); E. coli STEC Not Detected (Not Detect.); Entamoeba histolytica Not Detected (Not Detect.); Giardia lamblia Not Detected (Not Detect.); Norovirus GI/GII Not Detected (Not Detect.); Rotavirus A Not Detected (Not Detect.); Sapovirus Not Detected (Not Detect.); Shigella sp./EIEC Not Detected (Not Detect.)
[2022-09-20 15:59] LABS: CDIFF Internal ctrl Dots and bkg OK (V)
[2022-09-20 16:02] LABS: CDiff Toxin Positive (Negative)
== END 2022-09-20 11:44 | disposition home or self-care (01) ==
LOC: HO.LNP 11:43
PROVIDERS: Visit Provider Internal Medicine Medical Oncology
DX: R19.7 Diarrhea, unspecified (principal)
CPT/HCPCS: 87324; 87493; 87507

== ENCOUNTER 2022-10-11 13:31 | Outpatient (REF) | payer OTHER, SELFPAY ==
[2022-10-11 15:11] LABS: CDiff Gene PCR POSITIVE (Negative)
[2022-10-11 15:52] LABS: CDiff Toxin Positive (Negative)
[2022-10-11 15:53] LABS: CDIFF Internal ctrl Dots and bkg OK (V)
[2022-10-11 16:07] LABS: Campylobacter Not Detected (Not Detect.)
[2022-10-11 16:08] LABS: Adenovirus F 40/41 Not Detected (Not Detect.); Astrovirus Not Detected (Not Detect.); Cryptosporidium Not Detected (Not Detect.); Cyclospora cayetanensis Not Detected (Not Detect.); E. coli EAEC Not Detected (Not Detect.); E. coli EPEC Not Detected (Not Detect.); E. coli ETEC Not Detected (Not Detect.); E. coli STEC Not Detected (Not Detect.); Entamoeba histolytica Not Detected (Not Detect.); Giardia lamblia Not Detected (Not Detect.); Norovirus GI/GII Not Detected (Not Detect.); Plesiomonas shigelloides Not Detected (Not Detect.); Rotavirus A Not Detected (Not Detect.); Salmonella Not Detected (Not Detect.); Sapovirus Not Detected (Not Detect.); Shigella sp./EIEC Not Detected (Not Detect.); Vibrio Not Detected (Not Detect.); Vibrio Cholerae Not Detected (Not Detect.); Yersinia enterocolitica Not Detected (Not Detect.)
== END 2022-10-11 13:32 | disposition home or self-care (01) ==
LOC: HO.LNP 13:31
PROVIDERS: Visit Provider Internal Medicine Medical Oncology
DX: R19.7 Diarrhea, unspecified (principal); R63.4 Abnormal weight loss
CPT/HCPCS: 87324; 87493; 87507

== ENCOUNTER 2022-11-22 09:57 | Outpatient (REF) | payer OTHER, SELFPAY ==
[2022-11-22 13:24] LABS: CDiff Gene PCR POSITIVE (Negative)
[2022-11-22 16:28] LABS: CDiff Toxin Positive (Negative)
[2022-11-22 16:29] LABS: CDIFF Internal ctrl Dots and bkg OK (V)
== END 2022-11-22 09:58 | disposition home or self-care (01) ==
LOC: HO.LAB 09:57
PROVIDERS: PCP Internal Medicine Medical Oncology; Visit Provider Internal Medicine Medical Oncology
DX: A04.71 Enterocolitis due to Clostridium difficile, recurrent (principal)
CPT/HCPCS: 36415; 87324; 87493

== ENCOUNTER 2023-09-07 08:38 | Outpatient (REF) | payer MEDICARE, OTHER, SELFPAY ==
[2023-09-07 08:52] LABS: MANUAL DIFF FLAG NO
[2023-09-07 10:09] LABS: Basophils Percent Auto 0.2 % (0-2); Eosinophils Absolute Auto 0.1 X10*3/uL (0.0-0.4); Eosinophils Percent Auto 2.2 % (0-4); Hematocrit 46.6 % (42.0-52.0); Hemoglobin 15.5 g/dl (14.0-18.0); Imm Gran Abs Auto 0.01 X10*3/uL (0.00-0.03); Imm Gran Pct Auto 0.2 % (0.0-0.4); Lymphocytes Absolute Auto 2.1 X10*3/uL (1.2-4.9); Lymphocytes Percent Auto 35.6 % (20-40); Mean Corpuscular HGB Conc 33.3 g/dl (31.0-36.0); Mean Corpuscular Hemoglobin 30.1 pg (27.0-33.0); Mean Corpuscular Volume 90.5 fL (80.0-98.0); Mean Platelet Volume 10.5 fL (9.4-12.4); Monocytes Absolute Auto 0.6 X10*3/uL (0.1-1.2); Monocytes Percent Auto 9.8 % (2-11); Platelet Count 297 X10*3/uL (160-400); Red Blood Count 5.15 X10*6/uL (4.60-5.80); Red Cell Distribution Width 12.3 % (11.0-16.0); White Blood Count 5.8 X10*3/uL (4.8-10.8)
[2023-09-07 10:24] LABS: Alanine Aminotransferase 19 U/L (0-40); Albumin Level 4.2 g/dL (3.5-5.0); Alkaline Phosphatase 55 U/L (39-117); Anion Gap 11 (12-20); Aspartate Amino Transferase 22 U/L (5-37); Bilirubin Total 0.5 mg/dL (0.0-1.0); Blood Urea Nitrogen 12 mg/dL (9-16); Calcium 9.5 mg/dL (8.4-10.2); Carbon Dioxide 30 mmol/L (22-29); Chloride 103 mmol/L (96-108); Cholesterol 197 mg/dL (<200); Estimated Glomerular Filt Rate > 60; Glucose Fasting 93 mg/dL (60-99); HDL Cholesterol 54 mg/dL (>40); LDL Cholesterol Calculated 133 mg/dL (<100); Potassium 4.9 mmol/L (3.3-5.1); Sodium 139 mmol/L (135-145); Total Protein 7.5 g/dL (6.5-8.0); Triglycerides 54 mg/dL (<150)
[2023-09-09 19:38] LABS: Lyme Abs Screen <0.90 index
== END 2023-09-07 08:39 | disposition home or self-care (01) ==
LOC: HO.LAB 08:38
PROVIDERS: PCP Internal Medicine Medical Oncology; Visit Provider Internal Medicine Medical Oncology
DX: E78.5 Hyperlipidemia, unspecified (principal); N40.0 Benign prostatic hyperplasia without lower urinary tract symptoms; T14.8XXA Other injury of unspecified body region, initial encounter; W57.XXXA Bitten or stung by nonvenomous insect and other nonvenomous arthropods, initial encounter; Y93.9 Activity, unspecified; Y92.9 Unspecified place or not applicable; Y99.9 Unspecified external cause status; Z12.5 Encounter for screening for malignant neoplasm of prostate
CPT/HCPCS: 36415; 80053; 80061; 84153; 85025; 86617; 86618

== ENCOUNTER 2024-10-13 08:47 | Outpatient (REF) | payer MEDICARE, OTHER, SELFPAY ==
[2024-10-13 09:16] LABS: MANUAL DIFF FLAG NO
[2024-10-13 09:55] LABS: Basophils Percent Auto 0.3 % (0-2); Eosinophils Absolute Auto 0.1 X10*3/uL (0.0-0.4); Eosinophils Percent Auto 1.9 % (0-4); Hematocrit 45.6 % (42.0-52.0); Hemoglobin 15.3 g/dl (14.0-18.0); Imm Gran Abs Auto 0.01 X10*3/uL (0.00-0.03); Imm Gran Pct Auto 0.1 % (0.0-0.4); Lymphocytes Absolute Auto 1.9 X10*3/uL (1.2-4.9); Lymphocytes Percent Auto 28.6 % (20-40); Mean Corpuscular HGB Conc 33.6 g/dl (31.0-36.0); Mean Corpuscular Hemoglobin 30.2 pg (27.0-33.0); Mean Corpuscular Volume 89.9 fL (80.0-98.0); Mean Platelet Volume 10.2 fL (9.4-12.4); Monocytes Absolute Auto 0.7 X10*3/uL (0.1-1.2); Monocytes Percent Auto 10.8 % (2-11); Neutrophils Absolute Auto 3.9 x10*3/uL (2.0-8.3); Neutrophils Percent Auto 58.3 % (45-73); Platelet Count 294 X10*3/uL (160-400); Red Blood Count 5.07 X10*6/uL (4.60-5.80); Red Cell Distribution Width 12.6 % (11.0-16.0); White Blood Count 6.7 X10*3/uL (4.8-10.8)
[2024-10-13 11:21] LABS: Alanine Aminotransferase 21 U/L (0-40); Albumin Level 4.3 g/dL (3.5-5.0); Alkaline Phosphatase 56 U/L (39-117); Anion Gap 13 (12-20); Aspartate Amino Transferase 26 U/L (5-37); Bilirubin Total 0.4 mg/dL (0.0-1.0); Blood Urea Nitrogen 12 mg/dL (9-16); Calcium 9.5 mg/dL (8.4-10.2); Carbon Dioxide 29 mmol/L (22-29); Chloride 102 mmol/L (96-108); Cholesterol 219 mg/dL (<200); Estimated Glomerular Filt Rate > 60; Glucose Fasting 94 mg/dL (60-99); HDL Cholesterol 61 mg/dL (>40); LDL Cholesterol Calculated 148 mg/dL (<100); Potassium 4.9 mmol/L (3.3-5.1); Sodium 139 mmol/L (135-145); Total Protein 7.9 g/dL (6.5-8.0); Triglycerides 54 mg/dL (<150)
[2024-10-13 11:45] LABS: Prostate Specific Antigen 1.34 ng/mL (<0.05-4.0)
--- OUTSIDE RECORDS SUMMARY | 2024-10-14 19:05 | XMS_ITS ---
Author Organization Umberto Koo III, MD Address [address] [place] [address] [address] [place] [place] [address] Care Team Providers Care Director Mba Name Role Phone Umberto Koo Primary Care Provider REASON FOR VISIT Message Social History Sex Assigned At : Social History Observation Description Sex Assigned At Male Encounters Encounter Location Date Provider Diagnosis Umberto Koo III, MD [address] [place] [address] [place] [address] 08/11/2024 Umberto Koo Plan Of Treatment Next Appt Details Provider Name:Umberto Koo, 10/20/2024 04:00:00 PM, [address] [place] [address] [place], [address], Progress Notes * Jeffrey OSMANDOB:[birth year] (68 yo M)Acc No.[id number]:08/11/2024 Patient:?Jeffrey OSMAN :1955???Age:68 Y???Sex:Male Address:[address] [place] [address] * true * Date:? Generated for Krissyi arturo/Kathe/eTransmitting on:?10/14/2024 07:05 PM EST
--- OUTSIDE RECORDS SUMMARY | 2024-10-14 19:05 | XMS_ITS ---
Author Organization Umberto Koo III, MD Address [address] [place] [address] Care Team Providers Care Derrick Builder Name Role Phone Umberto Koo Primary Care Provider Allergies Allergen (clinical drug ingredient) Drug/Non Drug Allergy documented on EMR Reaction Allergy Type Onset Date Status No Known Drug Allergy Unknown Drug Allergy Active REASON FOR VISIT Recent Clostridium difficile colitis, Benign prostatic hypertrophy, GERD, Weight loss Medications Medication SIG (Take, Route, Frequency, Duration) Notes Start Date End Date Status SUMAtriptan Succinate 50 MG 1 tablet at least 2 hours between doses as needed Orally Twice a day 10/04/2023 Active Tadalafil 20 MG 1 tablet as needed Orally Once a day for 6 days 04/15/2024 06/26/2024 Active Social History Tobacco Use: Social History Observation Description Date Details (start date - stop date) Never Smoker NA - NA Sex Assigned At : Social History Observation Description Sex Assigned At Male Tobacco Use/Smoking Question Answer Notes Patient is a nonsmoker Additional Findings: Tobacco Non-User Aggressive non-smoker Vital Signs Temperature 99.0 degrees Fahrenheit 04/15/20 24 Blood pressure systolic 129 mm Hg 04/15/20 24 Blood pressure diastolic 74 mm Hg 024 Heart Rate 55 /min 04/15/2024 Height 69 in 04/15/2024 Weight 147 lbs 04/15/2024 BMI 21.71 kg/m2 04/15/2024 Encounters Encounter Location Date Provider Diagnosis Umberto oKo III, MD [address] [place] [address] [place] [address] 04/15/2024 Umberto Koo Psoriasis L40.9 ; Hyperlipidemia E78.5 ; Non-cardiac chest pain R07.89 ; GERD (gastroesophageal reflux disease) K21.9 ; ADD (attention deficit disorder) F98.8 and Clostridium difficile colitis A04.72 Assessments Encounter Date Diagnosis (ICD Code) Assessment Notes Treat ment Notes Treatment Clinical Notes 04/15/2024 Psoriasis (ICD-10 - L40.9) He has a small patch of psoriasis on his left jenkins. In the past this was thought to be eczema but the recreational resort manager made the diagnosis. 04/15/2024 Hyperlipidemia (ICD-10 - E78.5) His lipids and weight are stable. No change in his regimen was made. 04/15/2024 Non-cardiac chest pain (ICD-10 - R07.89) He has had no further episodes of chest wall pain and is doing well. There is no pneumothorax. It is likely an intercostal nerve impingement or a transient pleurisy. There was no sign of pulmonary embolism. He will be observed. 04/15/2024 GERD (gastroesophageal reflux disease) (ICD-10 - K21.9) He has occasional heartburn which is well controlled with liquid antacids and omeprazole. 04/15/2024 ADD (attention deficit disorder) (ICD-10 - F98.8) He does not need medication for this problem at this time. 04/15/2024 Clostridium difficil e colitis (ICD-10 - A04.72) He had an episode of this during the year. It proved very difficult to eradicate but he is free of it now. He has no symptoms referable to colitis. His stool today was guaiac negative. Plan Of Treatment Medication Medication Name Sig Start Date Stop Date Notes SUMAtriptan Succinate 50 MG 1 tablet at least 2 hours between doses as needed Orally Twice a day 10/04/2023 Tadalafil 20 MG 1 tablet as needed O rally Once a day for 6 days 04/15/2024 06/26/2024 Pending Test Test Name Order Date PROFILE, FASTING (COMPREHENSIVE METABOLI C) 04/15/2024 PSA, TOTAL 04/15/2024 CBC w DIFF 04/15/2024 Lipid Panel 04/15/2024 Next Appt Details Follow Up: as scheduled , Re ason: annual exam review labs Provider Name:Umberto Koo, 10/20/2024 04:00:00 PM, [address] [place] [address] [address], [place], [phone], Progress Notes * Jeffrey OSMANDOB:[birth year] (68 yo M)Acc No.[id number]:04/15/2024 Progress Notes Patient:?Jeffrey Osman Provider:?Umberto Koo MD :1955???Age:68 Y???Sex:Male Gagan e:04/15/2024 Address:[address] [place], [place] [id number] Subjective: * Chief Complaints: * ???Recent Clostridium diffic ile colitisBenign prostatic hypertrophyGERDWeight loss * HPI: ???COVID-19 Screening:? He returns to the office for management of his medical status. A new complaint is occasional erectile dysfunction. He was given a trial prescription for tadalafil with instructions on how to use it and information about side effects. He admits to nocturia twice a night. We discussed lifestyle modification as a way to reduce nocturia. ?Questions?Have you experienced fever, chills, cough, sore throat, shortness of breath, difficulty breathing, muscle aches, loss of taste or smell??No ?Have you been exposed to the virus within the last 10 days??No ?Have you travelled internationally in the last 10 days??No ?Have you been exposed to COVID-19 in the past??No * ROS:?General/Constitutional:?pain?only normal aches and pains.?Chills?denies.?Fatigue?admits.?Fever?denies.?ENT:?Decreased hearing?denies.?Respiratory:?Cough?denies.?Cardiovascular:?Chest pain with exertion?denies.?Dyspnea on exertion?denies.?Shortness of breath?denies.?Gastrointestinal:?Constipation?denies.?Decreased appetite?denies.?Diarrhea?denies.?Heartburn?denies.?Nausea?denies.?Rectal bleeding?denies.?Vomiting?denies.?Hematology:?bruising?denies.?petechiae?denies.?Swollen glands?none have been noted.?Genitourinary:?Frequent urination?once a night.?Musculoskeletal:?Muscle aches?denies.?Painful joints?denies.?Sciatica?denies.?Weakness?denies.?Skin:?Itching?denies.?Rash?denies.?Skin lesion(s)?denies.?Neurologic:?Difficulty speaking?denies.?Dizziness?denies.?Headache?denies.?Low back pain?denies.?Psychiatric:?Depressed mood?denies.? * Medical History:? * Surgical History:?pneumothor ax repaired surgically by Dr. Tee Ren colonoscopy, normal, [facility] [place] * Hospitalization/Major Diagno stic Procedure:?Denies Past Hospitalization * Family History:?Father: dece ased 84 yrs, kidney failure, adult onset diabetes mellitus, cancer, diagnosed with DM, Cancer.?Mother: alive 87 yrs.?2 brother(s) , 1 sister(s) - healthy. 1 son(s) , 1 daughter(s) - healthy. .? * Social History:?Tobacco Use:?Tobacco Use/Smoking?Patient is a?nonsmoker ?Additional Findings: Tobacco Non-User?Aggressive non-smoker ???He was born in [place], [place]. * Medications:?TakingSUMAtript an Succinate 50 MG Tablet 1 tablet at least 2 hours between doses as needed Orally Twice a dayMedication List reviewed and reconciled with the patientTaking SUMAtriptan Succinate 50 MG Tablet 1 tablet at least 2 hours between doses as needed Orally Twice a dayMedication List reviewed and reconciled with the patient * Allergies:?No Known Drug All ergyno[Allergies Verified] Objective: * Vitals:?Ht: 69, Wt:147, BMI: 21.71, BP:129/74, HR:55, Temp:99.0, Wt-k.68. * Examination: ???General Examination: ?GENERAL APPEARANCE:?pleasant, well nourished, well developed, in no acute distress, calm and relaxed , man.?HEAD:?atraumatic, normocephalic.?EYES:?eomi, perrla, anicteric, conjugate.?EARS:?normal.?NOSE:?septum intact.?ORAL CAVITY:?normal, unremarkable.?NECK/THYROID:?no jugular venous distention, no carotid bruit, thyroid normal.?LYMPH NODES:?no enlarged lymph nodes,spleen normal.?SKIN:?no suspicious lesions, anicteric, Small patches of psoriasis.?HEART:?no clicks, gallops, murmurs, or rubs, regular rhythm, S1, S2 normal, no s3, or vascular bruits.?LUNGS:?clear to auscultation .?BREASTS:??no masses palpable bilaterally.?ABDOMEN:?bowel sounds normal, no ascites, no organomegaly, no mass, Small inguinal hernia.?RECTAL EXAM:?not examined.?MUSCULOSKELETAL:?extremities unremarkable, no clubbing, cyanosis or edema.?PERIPHERAL PULSES:?normal.?NEUROLOGIC:?alert and oriented, cranial nerves 2-12 grossly intact, deep tendon reflexes 2+ symmetrical, motor strength normal upper and lower extremities, sensory exam intact.?PSYCH:?alert, oriented.? Assessment: * Assessment: 1.?Psoriasis - L40.9 (Primar y), He has a small patch of psoriasis on his left jenkins. In the past this was thought to be eczema but the recreational resort manager made the diagnosis.?2.?Hyperlipidemia - E78.5, His lipids and weight are stable. No change in his regimen was made.?3.?Non-cardiac chest pain - R07.89, He has had no further episodes of chest wall pain and is doing well. There is no pneumothorax. It is likely an intercostal nerve impingement or a transient pleurisy. There was no sign of pulmonary embolism. He will be observed.?4.?GERD (gastroesophageal reflux disease) - K21.9, He has occasional heartburn which is well controlled with liquid antacids and omeprazole.?5.?ADD (attention deficit disorder) - F98.8, He does not need medication for this problem at this time.?6.?Clostridium difficile colitis - A04.72, He had an episode of this during the year. It proved very difficult to eradicate but he is free of it now. He has no symptoms referable to colitis. His stool today was guaiac negative.? Plan: * Treatment: 2.?Hyperlipidemia?LAB: PROFILE, FASTING (COMPREHENSIVE METABOLIC) ?LAB: PSA, TOTAL ?LAB: CBC w DIFF ?LAB: Lipid Panel 3.?Non-cardiac chest pain?LAB: PROFILE, FASTING (COMPREHENSIVE METABOLIC) ?LAB: PSA, TOTAL ?LAB: CBC w DIFF ?LAB: Lipid Panel 4.?GERD (gastroesophageal re flux disease)?LAB: PROFILE, FASTING (COMPREHENSIVE METABOLIC) ?LAB: PSA, TOTAL ?LAB: CBC w DIFF ?LAB: Lipid Panel 5.?Others? Continue SUMAtriptan Succinate Tablet, 50 MG, 1 tablet at least 2 hours between doses as needed, Orally, Twice a day.?? * Procedure Codes:? * Follow Up:?as scheduled (Varsha son: annual exam review labs ) * Images: * Sign off status: Completed true * Provider:?Umberto Koo MD Date:?04/04 Generated for Jane morris/Kathe/Pearlsmitting on:?10/14/2024 07:05 PM EST History and Physical Notes * HPI [...] in no acute distress, calm and relaxed , man HEAD: atraumatic, normocep halic EYES: eomi, perrla, anicte ida, conjugate EARS: normal NOSE: septum intact NECK/THYROID: no jugular venous di stention, no carotid bruit, thyroid normal HEART: no clicks, gallops, murmurs, or rubs, regular rhythm, S1, S2 normal, no s3, or vascular bruits LUNGS: clear to auscultatio n ABDOMEN: bowel sounds normal, no ascites, no organomegaly, no mass, Small inguinal hernia NEUROLOGIC: alert and oriented, cranial nerves 2-12 grossly intact, deep tendon reflexes 2+ symmetrical, motor strength normal upper and lower extremities, sensory exam intact SKIN: no suspicious lesion s, anicteric, Small patches of psoriasis PERIPHERAL PULSES: normal BREASTS: no masses palpable b ilaterally MUSCULOSKELETAL: extremities unremark able, no clubbing, cyanosis or edema LYMPH NODES: no enlarged lymph no jeffrey,spleen normal RECTAL EXAM: not examined PSYCH: alert, oriented ORAL CAVITY: normal, unremarkable
--- OUTSIDE RECORDS SUMMARY | 2024-10-14 19:05 | XMS_ITS | Patient Health Record ---
Author Organization Umberto Koo III, MD Address [address] [address] Care Team Providers Care [employer] Executive Director Name Role Phone Umberto Koo Primary Care Provider [phone] Allergies Allergen (clinical drug ingredient) Drug/Non Drug Allergy documented on EMR Reaction Allergy Type Onset Date Status No Known Drug Allergy Unknown Drug Allergy Active Results Component Value Reference Range Notes URINE DIP STICK Reviewed date:10/16/2023 03:49:15 PM Interpretation:normal Performing Lab: Notes/Report: normal SG 1.000 1.005 - 1.025 pH 5.0 5.0 - 9.0 NICCI neg Negative - NIT neg Negative - PRO neg Negative - Trace GLU neg Negative - KET neg Negative - UBG 0.2 0.1 - 1.8 NORMA neg 0.2 - 1.3 BLD neg Negative - Menstrating N/A Complete Blood Count Auto Di ff (Not yet reviewed by provider) Interpretation: Performing Lab:[facility], [address] [place] [phone] Notes/Report: White Blood Count 6.7 4.8-10.8 X10*3/uL Red Blood Count 5.07 4.60-5.80 X10*6/uL Hemoglobin 15.3 14.0-18.0 g/dl Hematocrit 45.6 42.0-52.0 % Mean Corpuscular Volume 89.9 80.0-98.0 fL Mean Corpuscular Hemoglobin 30.2 27.0-33.0 pg Mean Corpuscular HGB Conc 33.6 31.0-36.0 g/dl Red Cell Distribution Width 12.6 11.0-16.0 % Platelet Count 294 160-400 X10*3/uL Mean Platelet Volume 10.2 9.4-12.4 fL Neutrophils Percent Auto 58.3 45-73 % Imm Gran Pct Auto 0.1 0.0-0.4 % Lymphocytes Percent Auto 28.6 20-40 % Monocytes Percent Auto 10.8 2-11 % Eosinophils Percent Auto 1.9 0-4 % Basophils Percent Auto 0.3 0-2 % NRBC Pct Auto 0.0 0.0-0.2 /100WBC Neutrophils Absolute Auto 3.9 2.0-8.3 x10*3/u L Imm Gran Abs Auto 0.01 0.00-0.03 X10*3/uL Lymphocytes Absolute Auto 1.9 1.2-4.9 X10*3/u L Monocytes Absolute Auto 0.7 0.1-1.2 X10*3/uL Eosinophils Absolute Auto 0.1 0.0-0.4 X10*3/u L Basophils Absolute Auto 0.0 0.0-0.2 X10*3/uL NRBC Abs Auto 0.000 0.0-0.012 X10*3/uL Comprehensive [place]. Panel Fa st (Not yet reviewed by provider) Interpretation: Performing Lab:[facility], [address] [place] [phone] Notes/Report: Sodium 139 135-145 mmol/L Potassium 4.9 3.3-5.1 mmol/L Chloride 102 96-108 mmol/L Carbon Dioxide 29 22-29 mmol/L Anion Gap 13 12-20 Blood Urea Nitrogen 12 9-16 mg/dL Creatinine 0.93 0.5-1.4 mg/dL Estimated Glomerular Filt Rate > 60 Chronic Kidney Disease: Estimated GFR < 60 mL/min/1.73m2 Severe Kidney Disease: Estimated GFR < 15 mL/min/1.73m2 Glucose Fasting 94 60-99 mg/dL Calcium 9.5 8.4-10.2 mg/dL Bilirubin Total 0.4 0.0-1.0 mg/dL Aspartate Amino Transferase 26 5-37 U/L Alanine Aminotransferase 21 0-40 U/L Total Protein 7.9 6.5-8.0 g/dL Albumin Level 4.3 3.5-5.0 g/dL Alkaline Phosphatase 56 39-117 U/L Lipid Panel (Not yet reviewe d by provider) Interpretation: Performing Lab:[facility], [address] [place] [phone] Notes/Report: Triglycerides 54 <150 mg/dL Desirable Triglyceride: less than 150 mg/dL Borderline High Triglyceride 150-199 mg/dL High Triglyceride: 200-499 mg/dL Very High Triglyceride: greater than or equal to 5OO mg/dL Cholesterol 219 <200 mg/dL Desirable Cholesterol: less than 200 mg/dL Borderline High Cholesterol: 200-239 mg/dL High Cholesterol: greater than 239 mg/dL LDL Cholesterol Calculated 148 <100 mg/dL Desirable LDL: less than 100 mg/dL Near Optimal/Above Optimal LDL: 110-129 mg/dL Borderline High LDL: 130-159 mg/dL High LDL: 160-189 mg/dL Very High LDL: greater than or equal to 190 mg/dL HDL Cholesterol 61 >40 mg/dL Desirable HDL: greater than 40 mg/dL Note: This HDL assay may give artificially low results in patients with liver disease. Prostate Specific Antigen (N ot yet reviewed by provider) Interpretation: Performing Lab:[facility], [address] [place] [phone] Notes/Report: Prostate Specific Antigen 1.34 <0.05-4.0 ng/mL PSA methodology: Butler Alinity i Chemiluminescent Microparticle Immunoassay (CMIA) Reason For Referral No Information Medications Medication SIG (Take, Route, Frequency, Duration) Notes Start Date End Date Status SUMAtriptan Succinate 50 MG 1 tablet at least 2 hours between doses as needed Orally Twice a day 10/04/2023 Active Immunizations Vaccine Route Administration Date Status Comme nts Influenza no Preserv 3 and > Unknown 08/22/2019 Administered COVID- 19 Vaccine IM Intramuscular 09/25/2021 Administered COVID 19 Moderna Unknown 09/22/2021 Administered COVID 19 Moderna Unknown 03/03/2021 Administered Influenza, quad Unknown 07/28/2020 Administered Influenza, quad Unknown 07/30/2022 Administered SHINGRIX Unknown 01/15/2024 Administered Social History Tobacco Use: Social History Observation Description Date Details (start date - stop date) Never Smoker NA - NA Sex Assigned At : Social History Observation Description Sex Assigned At Male Tobacco Use/Smoking Question Answer Notes Patient is a nonsmoker Additional Findings: Tobacco Non-User Aggressive non-smoker Alcohol Screen Question Answer Notes Did you have a drink containing alcohol in the p ast year? No Points 0 Interpretation Negative Problems Problem Type SNOMED Code ICD Code Onset Dates Problem Status W/U Status Risk Notes Problem 18128294 Hyperlipidemia (E78.5) Active confirmed His lipids and weight are stable. No change in his regimen was made. Problem 18437385 Weight loss (R63.4) Active confirmed Since his last visit a year ago. He has lost 17 pounds. He says he was trying to lose weight. His body mass index is in the underweight range. A CT scan of the abdomen and pelvis has been ordered to evaluate the pain and weight loss. Problem 234595244 GERD (gastroesophagea l reflux disease) (K21.9) Active confirmed He has occasional heartburn which is well controlled with liquid antacids and omeprazole. Problem 196862866709900 Bursitis of right shoulder (M75.51) Active confirmed Problem Benign prostatic hypertrophy without outflow obstruction (040736549) BPH (benign prostatic hypertrophy) (N40.0) Active confirmed Problem 3245684 Psoriasis (L40.9) Active confirmed He has a small patch of psoriasis on his left jenkins. In the past this was thought to be eczema but the fruit bar maker made the diagnosis. Problem 413241176 Inguinal hernia (K40.90) Active confirmed He was referred to a general surgeon and the hernia has been repaired without recurrence. Problem 441276186 Non-cardiac chest pain (R07.89) Active confirmed He has had no further episodes of chest wall pain and is doing well. There is no pneumothorax. It is likely an intercostal nerve impingement or a transient pleurisy. There was no sign of pulmonary embolism. He will be observed. Problem 418462119 ADD (attention deficit disorder) (F98.8) Active confirmed He does not need medication for this problem at this time. Problem 012656049983579 Episodic migraine (G43.909) Active confirmed He will fill the prescription of sumatriptan and use that to see if it well relieve his migraine symptoms. He has nnot yett had the presccription filled. Problem 565325124 Clostridium difficile colitis (A04.72) Active confirmed He had an episode of this during the year. It proved very difficult to eradicate but he is free of it now. He has no symptoms referable to colitis. His stool today was guaiac negative. Vital Signs Heart Rate 55 /min 04/15/2024 Temperature 99.0 degrees Fahrenheit 04/15/2024 Blood pressure diastolic 74 mm Hg 04/15/2024 Height 69 in 04/15/2024 Blood pressure systolic 129 mm Hg 04/15/2024 Weight 147 lbs 04/15/2024 BMI 21.71 kg/m2 04/15/2024 Encounters Encounter Location Date Provider Diagnosis Umberto Koo III, MD [address] [place] [address] [place] [id number] 10/16/2023 Umberto Koo Annual physical exam Z00.00 ; Hyperlipidemia E78.5 ; GERD (gastroesophageal reflux disease) K21.9 ; Psoriasis L40.9 ; ADD (attention deficit disorder) F98.8 ; Clostridium difficile colitis A04.72 and Episodic migraine G43.909 Umberto Koo III, MD [address] [place] [address] [place] [id number] 01/28/2024 Umberto Koo Acute gastritis with out hemorrhage, unspecified gastritis type K29.00 ; Psoriasis L40.9 ; Hyperlipidemia E78.5 ; GERD (gastroesophageal reflux disease) K21.9 ; ADD (attention deficit disorder) F98.8 ; Bursitis of right shoulder M75.51 and Clostridium difficile colitis A04.72 Umberto Koo III, MD [address] [place] [address] [place] [id number] 04/15/2024 Umberto Koo Psoriasis L40.9 ; Hyperlipidemia E78.5 ; Non-cardiac chest pain R07.89 ; GERD (gastroesophageal reflux disease) K21.9 ; ADD (attention deficit disorder) F98.8 and Clostridium difficile colitis A04.72 Umberto Koo III, MD [address] [place] [address] [place] [id number] 08/11/2024 Umberto Koo Assessments Encounter Date Diagnosis (ICD Code) Assessment Notes Treat ment Notes Treatment Clinical Notes 10/16/2023 Hyperlipidemia (ICD-10 - E78.5) His lipids and weight are stable. No change in his regimen was made. 10/16/2023 Annual physical exam (ICD-10 - Z00.00) He is healthy and well today with normal blood work. No change in his regimen was needed. Will be seen back in 6 months to review his GI function. 01/28/2024 Psoriasis (ICD-10 - L40.9) He has a small patch of psoriasis on his left jenkins. In the past this was thought to be eczema but the fruit bar maker made the diagnosis. 01/28/2024 Acute gastritis without hemorrhage, unspecified gastritis type (ICD-10 - K29.00) Because of these symptoms is unclear. It is likely gastritis. He has had no vomiting or diarrhea. He was instructed to telephone daily until he has recovered. He will come to the office at once if anything worsens. 04/15/2024 Hyperlipidemia (ICD-10 - E78.5) His lipids and weight are stable. No change in his regimen was made. 04/15/2024 Psoriasis (ICD-10 - L40.9) He has a small patch of psoriasis on his left jenkins. In the past this was thought to be eczema but the fruit bar maker made the diagnosis. 10/16/2023 GERD (gastroesophageal reflux disease) (ICD-10 - K21.9) He has occasional heartburn which is well controlled with liquid antacids and omeprazole. 01/28/2024 Hyperlipidemia (ICD-10 - E78.5) His lipids and [...] of pulmonary embolism. He will be observed. 10/16/2023 Psoriasis (ICD-10 - L40.9) He has a small patch of psoriasis on his left jenkins. In the past this was thought to be eczema but the fruit bar maker made the diagnosis. 01/28/2024 GERD (gastroesophageal reflux disease) (ICD-10 - K21.9) He has occasional heartburn which is well controlled with liquid antacids and omeprazole. 04/15/2024 GERD (gastroesophageal reflux disease) (ICD-10 - K21.9) He has occasional heartburn which is well controlled with liquid antacids and omeprazole. 10/16/2023 ADD (attention deficit disorder) (ICD-10 - F98.8) He does not need medication for this problem at this time. 01/28/2024 ADD (attention deficit disorder) (ICD-10 - F98.8) He does not need medication for this problem at this time. 04/15/2024 ADD (attention deficit disorder) (ICD-10 - F98.8) He does not need medication for this problem at this time. 10/16/2023 Clostridium difficil e colitis (ICD-10 - A04.72) He had an episode of this during the year. It proved very difficult to eradicate but he is free of it now. He has no symptoms referable to colitis. His stool today was guaiac negative. 01/28/2024 Bursitis of right shoulder (ICD-10 - M75.51) 04/15/2024 Clostridium difficil e colitis (ICD-10 - A04.72) He had an episode of this during the year. It proved very difficult to eradicate but he is free of it now. He has no symptoms referable to colitis. His stool today was guaiac negative. 10/16/2023 Episodic migraine (ICD-10 - G43.909) He will fill the prescription of sumatriptan and use that to see if it well relieve his migraine symptoms. He has nnot yett had the presccription filled. 01/28/2024 Clostridium difficil e colitis (ICD-10 - A04.72) He had an episode of this during the year. It proved very difficult to eradicate but he is free of it now. He has no symptoms referable to colitis. His stool today was guaiac negative. 01/28/2024 Other patient to call back in two days with update on how he is feeling Plan Of Treatment Pending Test Test Name Order Date URINE DIP STICK 07/24/2021 PROFILE, FASTING (COMPREHENSIVE METABOLI C) 07/11/2022 PROFILE, FASTING (COMPREHENSIVE METABOLI C) 07/31/2023 PROFILE, FASTING (COMPREHENSIVE METABOLI C) 04/14/2018 PROFILE, FASTING (COMPREHENSIVE METABOLI C) 07/24/2021 PROFILE, FASTING (COMPREHENSIVE METABOLI C) 04/15/2024 PROFILE, FASTING (COMPREHENSIVE METABOLI C) 08/28/2023 PROFILE, FASTING (COMPREHENSIVE METABOLI C) 10/01/2017 PROFILE, RANDOM (COMPREHENSIVE METABOLIC ) 08/28/2022 PROFILE, RANDOM (COMPREHENSIVE METABOLIC ) 04/15/2019 LIPID PANEL 10/01/2017 LIPID PANEL 07/11/2022 LIPID PANEL 04/15/2019 LIPID PANEL 04/14/2018 FERRITIN 03/26/2017 PSA, TOTAL 04/15/2024 PSA, TOTAL 08/28/2023 PSA, TOTAL 04/14/2018 PSA, TOTAL 07/31/2023 PSA, TOTAL 10/01/2017 PSA, TOTAL 04/15/2019 PSA, TOTAL 07/24/2021 PSA, TOTAL SCREEN 07/11/2022 CBC w DIFF 04/15/2019 CBC w DIFF 07/24/2021 CBC w DIFF 04/15/2024 CBC w DIFF 04/14/2018 CBC w DIFF 08/28/2022 CBC w DIFF 07/31/2023 CBC w DIFF 10/01/2017 CBC w DIFF 07/11/2022 CBC w DIFF 03/26/2017 SED RATE (ESR) 08/28/2022 CLOSTRIDIUM DIFF TOXIN A&B (C DIFF) 03/05 LYME DISEASE IgG/IgM WB 08/28/2023 XR CHEST 2 VIEW PA & LAT 08/06/2019 VITAMIN D 25-OH TOTAL 04/15/2019 CBC WITH AUTO DIFF 08/28/2023 SARS COV2 RNA RT PCR 07/01/2020 SARS COV2 RNA RT PCR 08/10/2020 Complete Blood Count Auto Diff 4 Comprehensive [place]. Panel Fast Lipid Panel 10/13/2024 Lipid Panel 04/15/2024 Lipid Panel 08/28/2023 Lipid Panel 07/31/2023 Prostate Specific Antigen 10/13/2024 Stool Culture 03/27/2023 Lyme IgG/IgM w/reflex to WB 08/28/2023 Next Appt Details Provider Name:Umberto Blasne, 10/20/2024 04:00:00 PM, [address] [facility] [address], [place], [phone], Insurance Providers Payer Name Payer Address Payer Phone Subscriber Number Group Number Insured Name Patient Relationship to Insured Coverage Start Date Coverage End Date MEDICARE [place] [address] [place] [phone] [id number] Jeffrey Peoples Self - patient is the insured [address] [facility] [place], [place] [phone] [id number] Jeffrey Peoples Self - patient is the insured Medical (General) History Medical History History ICD Code non-cardiac chest pain eczema ADD atypical depression left lung pneumothorax left lung high [employer] Surgical History Surgery Date(Month/Year) [place] [facility] [place] pneumothorax repaired surgically by Dr. Tee Ren
--- OUTSIDE RECORDS SUMMARY | 2024-10-14 19:05 | XMS_ITS ---
Author Organization Umberto Koo III, MD Address [address] [place] [address] Care Team Providers Care Solid Waste Landfill Technician Name Role Phone Umberto Koo Primary Care [...] Date Provider Diagnosis Umberto Koo III, MD [address] [place] [address] [place] [phone] 08/12/2024 Umberto Koo Plan Of Treatment Medication Medication Name Sig Start Date Stop Date Notes SUMAtriptan Succinate 50 MG 1 tablet at least 2 hours between doses as needed Orally Twice a day 10/04/2023 Next Appt Details Provider Name:Umberto Koo, 10/20/2024 04:00:00 PM, [address] [place] [address] [place], [phone], Progress Notes * Alissno OSMAN:[birth year] (68 yo M)Acc No.[id number]:08/12/2024 Progress Notes Patient:Jeffrey KAUR Provider:?Umberto Koo MD :1955???Age:68 Y???Sex:Male Gagan e:08/12/2024 Address:[address] [place] [address], [id number] Subjective: * Chief Complaints: * ???1. New Concern. * HPI: ???COVID-19 Screening:?Questions?Have you had any new onset fever, chills, cough, congestion, sore throat, shortness of breath, muscle aches??No ?Have you been exposed to the virus within the last 10 days??No ?Have you travelled internationally in the last 10 days??No ?Have you been exposed to COVID-19 in the past??No * ROS:?General/Constitutional:?pain?only normal aches and pains.?Chills?denies.?Fatigue?admits.?Fever?denies.?ENT:?Decreased hearing?denies.?Respiratory:?Cough?denies.?Cardiovascular:?Chest pain with exertion?denies.?Dyspnea on exertion?denies.?Shortness of breath?denies.?Gastrointestinal:?Constipation?denies.?Decreased appetite?denies.?Diarrhea?denies.?Heartburn?denies.?Nausea?denies.?Rectal bleeding?denies.?Vomiting?denies.?Hematology:?bruising?denies.?petechiae?denies.?Swollen glands?none have been noted.?Genitourinary:?Frequent urination?denies.?Musculoskeletal:?Muscle aches?denies.?Painful joints?denies.?Sciatica?denies.?Weakness?denies.?Skin:?Itching?denies.?Rash?denies.?Skin lesion(s)?denies.?Neurologic:?Difficulty speaking?denies.?Dizziness?denies.?Headache?denies.?Low back pain?denies.?Psychiatric:?Depressed mood?denies.? * Medical History:?Non-cardiac chest pain, Eczema, ADD, Atypical depression, Left lung pneumothorax left lung high school. * Surgical History:?pneumothor ax repaired surgically by Dr. Tee Ren , [place] [facility] [place]. * Hospitalization/Major Diagno stic Procedure:?Denies Past Hospitalization. * Family History:?Father: dece ased 84 yrs, kidney failure, adult onset diabetes mellitus, cancer, diagnosed with DM, Cancer.?Mother: alive 87 yrs.?2 brother(s) , 1 sister(s) - healthy. 1 son(s) , 1 daughter(s) - healthy. .? * Social History:?Tobacco Use:?Tobacco Use/Smoking?Patient is a?nonsmoker ?Additional Findings: Tobacco Non-User?Aggressive non-smoker ???He was born in [place], [place]. * Medications:?Taking SUMAtrip guzman Succinate 50 MG Tablet 1 tablet at least 2 hours between doses as needed Orally Twice a day , Medication List reviewed and reconciled with the patient * Allergies:?No Known Drug All ergy. Objective: * Vitals:? * Examination: ???General Examination: ?GENERAL APPEARANCE:?pleasant, well nourished, well developed, in no acute distress, calm and relaxed.?HEAD:?atraumatic, normocephalic.?EYES:?eomi, perrla, anicteric, conjugate.?EARS:?normal.?NOSE:?septum intact.?ORAL CAVITY:?normal, unremarkable.?NECK/THYROID:?no jugular venous distention, no carotid bruit, thyroid normal.?LYMPH NODES:?no enlarged lymph nodes,spleen normal.?SKIN:?no suspicious lesions, anicteric.?HEART:?no clicks, gallops, murmurs, or rubs, regular rhythm, S1, S2 normal, no s3, or vascular bruits.?LUNGS:?clear to auscultation .?BREASTS:??no masses palpable bilaterally.?ABDOMEN:?bowel sounds normal, no ascites, no organomegaly, no mass.?RECTAL EXAM:?not examined.?MUSCULOSKELETAL:?extremities unremarkable, no clubbing, cyanosis or edema.?PERIPHERAL PULSES:?normal.?NEUROLOGIC:?alert and oriented, cranial nerves 2-12 grossly intact, deep tendon reflexes 2+ symmetrical, motor strength normal upper and lower extremities, sensory exam intact.?PSYCH:?alert, oriented.? Assessment: Plan: * Treatment: * Images: * The named appointment provid er may or may not be the originator of this progress note, and it is not deemed complete until electronically signed by the appointment provider. Sign off status: Pending * Provider:?Umberto Koo MD Date:?07/2024 Generated for Krissyi arturo/Kathe/eTransmitting on:?10/14/2024 07:05 PM EST History and Physical Notes * HPI (History of Present Illness) Category Sub-Category Detail Notes COVID-19 Screening Questions Have you had any new onset fever, chills, cough, congestion, sore throat, shortness of breath, muscle aches?: No Have you been exposed to the virus withi n the last 10 days?: No Have you travelled internationally in [facility] last 10 days?: No Have [...]
== END 2024-10-13 08:48 | disposition home or self-care (01) ==
LOC: HO.LAB 08:47
PROVIDERS: PCP Internal Medicine Medical Oncology; Visit Provider Internal Medicine Medical Oncology
DX: L40.9 Psoriasis, unspecified (principal); R59.1 Generalized enlarged lymph nodes; E78.5 Hyperlipidemia, unspecified; R07.89 Other chest pain; K21.9 Gastro-esophageal reflux disease without esophagitis; Z12.5 Encounter for screening for malignant neoplasm of prostate
CPT/HCPCS: 36415; 80053; 80061; 84153; 85025

== ENCOUNTER 2025-02-17 09:20 | Outpatient (REF) | payer MEDICARE, OTHER, SELFPAY ==
[2025-02-17 09:48] LABS: MANUAL DIFF FLAG NO
--- OUTSIDE RECORDS SUMMARY | 2025-02-17 10:16 | XMS_ITS | Data Portability ---
Author Organization [facility], [facility] Address [address] [place] [address] Care Team Providers Care Investment Director Name Role Phone MARE SUAREZ Primary Care Provider Assessment No assessment recorded. Plan of Treatment Reminders Order Date Submit Date Provider Last Modified By Organization Details Last Modified Time Details Appointments None recorded. Lab None recorded. Referral physical therapist referral - VMO Strengthe nakul, Quad & Hamstring Stretchin g, Patella Mobilizat ion, Shah Taping 2024 025 [facility], [address] [place], [address], 5 08:47:05 Procedures None recorded. Surgeries None recorded. Imaging MRI, knee, w/o contrast - R knee mri. ?[facility]), [address], [place], [address], 5 15:39:57 XR, knee, 4 or more view - rm 214 4V right knee pain 2024 025 [facility], [address], [address], [place], [address], 5 08:47:05 Medication Orders None recorded. Patient TargetsNo targets recorded. Patient InstructionsNo instructions recorded. Reason for Referral Physical Therapist Referral for Pain of right knee joint VMO Strengthening, Quad & Hamstring Stretching, Patella Mobilization, Shah Taping Referring Physician: Katarina Moreno, Orthopedic Surgery, Encounter Date: 11/10/2024 Results Created Date Observation Date Name Description Value Unit Range Abnormal Flag Note LastModifiedBy Organization Detail LastModifiedTime 01/08/2001/06/2025 MRI, knee, w/o contr ast [facility] Access ion Number : [id number] Patien t Name: Braden Bernabe Record Number : [id number] Date of : 1955 Date of Exam: 2024 Referr ing Physic tuyet: Ang wallace, Katarina ARAVIND [address] [facility], [place] [address] Exam: MR Knee (C-) CPT 15600 - Right Room Descri ption: [place] GE Pion 3T Histor y: Unspec ified supply chain intern al derang ement of the right knee, questi on medial menisc al tear. The patien t report s mild to modera te interm ittent right knee pain for years. Histor y of a twisti ng injury while hiking 40 years ago. Techni que: MRI of the right knee was perfor med withou t intrav enous contra st. Compar juan luis: None. Findin gs: Joint effusi on: No joint effusi on is presen t. Hoffa' s fat pad is unrema rkable . Trace fluid is seen in a Lagunas' s cyst. Menisc i: Intram enisca l degene ration is seen in the medial menisc al body, which approa ches though does not defini tely contac t the inferi or articu lar surfac e. The latera l menisc us appear s intact . Tendon s and ligame nts: The ACL appear s somewh at attenu ated with mild bony prolif eratio n and marrow edema like signal near its proxim al attach ment, which may reflec t sequel a of prior partia l tear. The PCL appear s intact . The collat eral ligame nts are unrema rkable . The ilioti bial band is unrema rkable . The extens or mechan ism appear s normal . Articu lar cartil age and bone: There is an irregu lar full-t hickne ss chondr al defect in the medial patell a which measur es approx imatel y 5 x 5 mm with mild adjace nt subcho ndral marrow edema like signal . Surrou nding mild chondr al thinni ng in the remain landy of the medial patell ar cartil age. Medial and latera l compar tment cartil age is normal in thickn ess. Impres jaquan: 1. Intram enisca l degene ration in the medial menisc al body with no eviden ce of menisc al tear. 2. Attenu ation of the ACL with mild bony prolif eratio n and mild marrow edema like signal near its proxim al attach ment, which may reflec t sequel a of prior partia l tear. 3. Chondr omalac ia patell a. Electr onical ly Signed By: Agustina huertas[address] [facility] ([facility]) [address], [place], [address], 01/07/2025 10:38:59 Result Notes None recorded. Problems Name Problem SNOMED Code Status Onset Date Resolution Date Notes Provider Name and Address Organization Details Recorded Time No complaints [id number] Active Status : 'A'; Not Available [facility] 4 09:21:17 Pain of right knee joint 9082939653396 00 Active 2024 Katarina Moreno PA-C [address], [place], [address] , [facility] 5 11:34:03 Chondromal acia of right patella 0582006268761 9108 Active 2024 Katarina Moreno PA-C [address], [place], [address] , [facility] 5 11:54:01 Problem Notes None recorded. Procedures Surgical History None recorded. Imaging Results Imaging Date Name Status LastModified by Organiz ation Details LastModified Time 01/06/2025 MRI, knee, w/o contrast [facility] [facility]) [address], [place], [address], 01/07/2025 10:38:59 Procedure Notes None recorded. Medical Equipment None Reported. Allergies No known drug allergies Medications Name Sig Start Date Stop Date Status Note LastModified by Organization Details LastModified Time tadalafil 20 mg tablet TAKE 1 TABLET NEEDED ORALLY ONCE A DAY 6 DAYS 12/31 completed Not Available Not Available Not Available Vitals Date Recorded Body height Body mass index (BMI) Body weight Provider Name and Address Organization Details Last Updated DateTime 11/10/2024 177.8 cm 20.8 kg/m2 98867.89 g JORGE DELIA [facility] 11/10/2024 10:30:00 Date Recorded Body height Body mass index (BMI) Body weight Provider Name and Address Organization Details Last Updated DateTime 12/31/2024 177.8 cm 20.8 kg/m2 08469.89 g Shannan Hernadez [facility] 12/31/2024 10:54:35 Date Recorded Body height Body mass index (BMI) Body weight Provider Name and Address Organization Details Last Updated DateTime 02/11/2025 177.8 cm 20.8 kg/m2 20289.89 g grady bhandari [facility] 02/11/2025 08:34:01 Social History None recorded. Functional Status None recorded. Mental Status None recorded. Family History Nothing Reported. Medical History Condition Response Cholesterol Y Past Encounters Encounter ID Performer Location Encounter Start Date Encounter Closed Date Diagnosis/Indication Diagnosis SNOMED-CT Code Diagnosis ICD10 Code Diagnosis Note [id number] [facility] [address] [place] [address] 11/10/2024 10:17:35 11/25/2024 08:47:05 Pain of right knee joint 2791172393 12504 M25.302 [id number] [facility] [address] [place] [address] 12/31/2024 10:46:14 01/18/2025 15:39:56 Derangement of right knee 5247598724 6372028 M23.91 Pain of ri ght knee joint 8289904167 93508 M25.879 [id number] [facility] [address] [place] [address] 02/11/2025 08:11:47 02/11/2025 10:35:24 Chondromalacia of right patella 7088635513 1033442 M22.41 Health Concerns Section Related Observation LastModified by Organization Detai ls LastModified Time None Recorded Concern Status LastModified by Organization Details LastModified Time None Recorded Advance Directives Directive None Recorded Payers Encounter Date Sequence Insurance Name Policy Number Policy Espinoza Covered Member ID Espinoza Member ID Guarantor Name 11/10/2024 1 MEDICARE B-[place]: [employer] Jeffrey Hollingsworth Richelle [id number] Jeffrey Jose C Richelle 11/10/2024 2 [facility] (MEDICARE SUPPLEMENT) [id number] 1 Jeffrey Woodall Richelle [id number] Jeffrey Peoples 12/31/2024 1 [facility] [employer] Jeffrey Hollingsworth Richelle [id number] Jeffrey Peoples 12/31/2024 2 [facility] (MEDICARE SUPPLEMENT) [id number] 1 Jeffrey Edel Woodall Richelle [id number] Jeffrey Peoples 02/11/2025 1 MEDICARE B-[place]: [employer] Jeffrey Hollingsworth Richelle [id number] Jeffrey Peoples 02/11/2025 2 [facility] 1 (MEDICARE SUPPLEMENT) [id number] 1 Jeffrey Edel Woodall Richelle [id number] Jeffrey Peoples Notes Date Note Type Note Provider Name and Address Organization Details Recorded Time text/html I am seeing the patient today under the supervision of [facility] who was available but who did not see the patient. HPI: 68-year-old male patient presents today for right knee pain ongoing for several years. He reports twisting his knee in the 1970s during a hiking accident where he was running down a hill. no recent treatment for his knee. He does report crepitus. Localizes pain to the anterior aspect of the knee. Pain exacerbated with stairs, running or jumping. Denies mechanical catching or locking symptoms. Denies swelling. Past family, social history and review of systems has been reviewed, updated and is located in the patient? s chart. X-RAYS:4v X-rays of the {{Right* Left Bilateral}} knee were ordered, obtained and reviewed today at [facility] demonstrates well-preserved medial lateral compartment spaces, mild patellofemoral space narrowing bilaterally. 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 Discussed conservative treatment as an appropriate initial option. Physical therapy prescription was provided. Follow-up in 6-8 weeks for recheck, given the time his pain has been ongoing could consider MRI imaging to rule out underlying degenerative meniscus tear. Discussed dozc-fhs-oxddeem anti-inflammatories as needed and tolerated for pain relief. All of his concerns are addressed and he understands and agrees with the plan. Speech recognition laborer rags software was used to create portions of this document. An attempt at proofreading has been made to minimize errors. Please call for corrections. Katarina Moreno PA-C [address], [place], [address], [facility] 11/10/2024 11:38:54 5 text/html I am seeing the patient today under the supervision of {{Niki Curry#}} who was available but who did not see the patient. CLINICAL UPDATE: 69-year-old male patient presents today for right knee recheck. He has been attending physical therapy which he feels has helped gain strength and also extremities. Pain is still bothersome with squatting, stairs. HPI: Presented 11/10/24 for right knee pain ongoing for several years. He reports twisting his knee in the 1970s during a hiking accident where he was running down a hill. No recent treatment for his knee. He does report crepitus. Localizes pain to the anterior aspect of the knee. Pain exacerbated with stairs, running or jumping. Denies mechanical catching or locking symptoms. Denies swelling. Past family, social history and review of systems has been reviewed, updated and is located in the patient? s chart.X-RAYS:Previous 4v X-rays of the {{Right* Left Bilateral}} knee reviewed today at [facility] demonstrates well-preserved medial lateral compartment spaces, mild patellofemoral space narrowing bilaterally. IMPRESSION: {{Right* Left Bilateral}} knee pain PLAN: Findings reviewed. Discussed he does have some early patellofemoral joint degenerative changes. Patient has been working with physical therapy with improvements in her strength but continues to have pain with squatting and stairs. He elected to proceed with MRI imaging to rule further discussed definitive treatment options. Follow-up for MRI review. Discussed zwjj-nnl-wkwetlz anti-inflammatories as needed and tolerated for pain relief. All of his concerns are addressed and he understands and agrees with the plan. Speech recognition laborer rags software was used to create portions of this document. An attempt at proofreading has been made to minimize errors. Please call for corrections. Katarina Moreno PA-C [address] [place] [address] [address], [place], [address], [facility] 12/31/2024 11:37:19 5 text/html I am seeing the patient today under the supervision of {{Niki* Fe [facility]ass[facility] Brothers}} who was available but who did not see the patient. CLINICAL UPDATE: 69-year-old male patient presents today for right knee recheck and MRI review. He has been attending physical therapy which he feels has helped gain strength. Mild discomfort with squatting, stairs. HPI: Presented 11/10/24 for right knee pain ongoing for several years. He reports twisting his knee in the 1970s during a hiking accident where he was running down a hill. No recent treatment for his knee. He does report crepitus. Localizes pain to the anterior aspect of the knee. Pain exacerbated with stairs, running or jumping. Denies mechanical catching or locking symptoms. Denies swelling. Past family, social history and review of systems has been reviewed, updated and is located in the patient? s chart. X-RAYS:Previous 4v X-rays of the {{Right* Left Bilateral}} knee reviewed today at [facility] demonstrates well-preserved medial lateral compartment spaces, mild patellofemoral space narrowing bilaterally. MRI [facility] 01/06/25 of the right kneeindependently reviewed today demonstrates: No joint effusion. Medial and lateral meniscus appear intact. Possible previous partial ACL tear near proximal attachment. PCL intact. Full thickness chondral defect in medial patellar 5x5mm with bony edema, mild patellar chondromalacia throughout. 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 Discussed he does have some early patellofemoral joint degenerative changes. Patient has been working with physical therapy with improvements in strength but continues to have mild discomfort with squatting and stairs. Discussed the importance of a low impact exercise program. Discussed woya-oyx-nntdhwz anti-inflammatories as needed and tolerated for pain relief. Discussed cortisone injection, viscosupplementation as needed in the future. He declines these options today. He will follow-up as symptoms dictate. All of his concerns are addressed and he understands and agrees with the plan. Speech recognition laborer rags software was used to create portions of this document. An attempt at proofreading has been made to minimize errors. Please call for corrections. Katarina Moreno PA-C [address] [facility] [address], [place], [address], [facility] 02/11/2025 10:35:22
--- OUTSIDE RECORDS SUMMARY | 2025-02-17 10:16 | XMS_ITS ---
Author Organization Umberto Koo III, MD Address [address] [place] [address] Care Team Providers Care Upholsterer Inside Name Role Phone Umberto Koo Primary Care [...] Date Provider Diagnosis Umberto Koo III, MD [address] [place] [address] [place] [address] 10/20/2024 Umberto Koo Hyperlipidemia E78.5 ; Chest [...] was thought to be eczema but the counter intelligence made the diagnosis. 10/20/2024 ADD (attention deficit [...] results and check cholesterol levels Provider Name:Umberto Koo, 02/23/2025 03:30:00 PM, [address] [place] [address] [address], [place], [phone], Progress Notes * Alisson OSMAN:[birth year] (68 yo M)Acc No.[id number]:10/20/2024 Progress Notes Patient:?Jeffrey OSMAN Provider:?Umberto Koo MD :1955???Age:68 Y???Sex:Male Gagan e:10/20/2024 Address:[address] [place], [place] [address], [phone] Subjective: * Chief Complaints: * ???Annual Exam * HPI: ???Depression Screening:?PHQ-9?Little interest or pleasure in doing things?Not at all ?Feeling down, depressed, or hopeless?Several days ?Trouble falling or staying asleep, or sleeping too much?Nearly every day ?Feeling tired or having little energy?Several days ?Poor appetite or overeating?Several days ?Feeling bad about yourself or that you are a failure, or have let yourself or your family down?Several days ?Trouble concentrating on things, such as reading the newspaper or watching television?Several days ?Moving or speaking so slowly that other people could have noticed; or the opposite, being so fidgety or restless that you have been moving around a lot more than usual?Not at all ?Thoughts that you would be better off or of hurting yourself in some way?Not at all ?Total Score?8 ?Interpretation?Mild Depression ???COVID-19 Screening:?Questions?Have you had any new onset fever, chills, cough, congestion, sore throat, shortness of breath, muscle aches??No ???SDOH Questions:?SDOH Questions?In the past year have you been worried about losing your housing??No ?In the past year have you or any family members you live with been unable to get any of the following when it was really needed? Check all that apply:?None ???:?The patient, a 68-year-old male, presented for his [...] his next screening colonoscopy in January of 2025.? We have referred him to gastroenterology to make sure this occurs.Comprehensive blood work is not available but has been ordered prior to his next visit. * ROS:?General/Constitutional:?pain?only normal aches and pains.?Chills?denies.?Fatigue?admits.?Fever?denies.?ENT:?Decreased hearing?denies.?Respiratory:?Denies?Chest pain.?Cough?denies.?Cardiovascular:?Chest pain with exertion?denies.?Dyspnea on exertion?denies.?Shortness of breath?denies.?Gastrointestinal:?Constipation?occasional.?Decreased appetite?denies.?Diarrhea?denies.?Heartburn?occasional.?Nausea?denies.?Rectal bleeding?denies.?Vomiting?denies.?Hematology:?bruising?denies.?petechiae?denies.?Swollen glands?none have been noted.?Genitourinary:?Frequent urination?twice a night.?Musculoskeletal:?Muscle aches?denies.?Painful joints?denies.?Sciatica?denies.?Weakness?denies.?Skin:?Itching?denies.?Rash?denies.?Skin lesion(s)?denies.?Neurologic:?Difficulty speaking?denies.?Dizziness?denies.?Headache?denies.?Low back pain?denies.?Psychiatric:?Depressed mood?denies.? * Medical History:? * Surgical History:?pneumothor ax repaired surgically by Dr. Tee Ren colonoscopy, normal, [facility] [place] 2008No history * Hospitalization/Major Diagno stic Procedure:?No history * Family History:?Father: dece ased 84 yrs, kidney failure, adult onset diabetes mellitus, cancer, diagnosed with Cancer, DM.?Mother: 99 yrs.?2 brother(s) , 1 sister(s) - healthy. 1 son(s) , 1 daughter(s) - healthy. .? * Social History:?Tobacco Use:?Tobacco Use/Smoking?Patient is a?nonsmoker ?Additional Findings: Tobacco Non-User?Aggressive non-smoker ?Tobacco Control (Standard)?Tobacco use:?Nonsmoker ?Additional Findings: Tobacco non-user?Aggressive nonsmoker ???Drugs/Alcohol:?Drugs?Have you used drugs other than those for medical reasons in the past 12 months??Yes ?Marijuana??Yes ???Drug/Alcohol:?AUDIT-C (Standard)?Did you have a drink containing alcohol in the past year??Yes ?How often did you have six or more drinks on one occasion in the past year??2 to 3 times per week (3 points) ?How many drinks did you have on a typical day when you were drinking in the past year??1 or 2 drinks (0 point) ?How often did you have a drink containing alcohol in the past year??Never (0 point) ?Points?3 ?Interpretation?Negative ???He was born in [place], [place]. {'Exercise': 'Working out more, trying to gain weight', 'Diet': 'Considering adding protein powder and creatine'}. * Medications:?DiscontinuedSUM Atriptan Succinate 50 MG Tablet 1 tablet at [...] All ergyno[Allergies Verified] Objective: * Vitals:?Ht: 69, Wt: 153,143. 0, BMI:22.59, BP:126/80, HR:97, Temp:97.4, Wt-k.4. * ???Past Orders: Lab:Prostate Specific Antige n * Collection [...] <150 mg/dL) 48 (Ref Range: mg/dL) Cholesterol 219?H (Ref Range: <200 mg/dL) 197 (Ref Range: <200 mg/dL) 185 (Ref Range: mg/dL) LDL Cholesterol Calculated 148?H (Ref Range: <100 mg/dL) 133?H (Ref Range: <100 mg/dL) 116 (Ref Range: mg/dl) HDL Cholesterol 61 (Ref Range: >40 mg/dL) 54 (Ref Range: >40 mg/dL) 60 (Ref Range: mg/dL) * Lab:Laura Cobian l Fast * Collection Date 10/13/2024 09/07/2023 [...] 3.3-5.1 mmol/L) 4.9 (Ref Range: 3.3-5.1 mmol/L) 5.6?H (Ref Range: 3.3-5.1 mmol/L) Chloride 102 (Ref Range: 96-108 mmol/L) 103 (Ref Range: 96-108 mmol/L) 106 (Ref Range: 96-108 mmol/L) Carbon Dioxide 29 (Ref Range: 22-29 mmol/L) 30?H (Ref Range: 22-29 mmol/L) 30?H (Ref Range: 22-29 mmol/L) Anion Gap 13 (Ref Range: 12-20) 11?L (Ref Range: 12-20) 11?L (Ref Range: 12-20) Blood Urea Nitrogen 12 [...] 4.8-10.8 X10*3/uL) 5.8 (Ref Range: 4.8-10.8 X10*3/uL) 13.2?H (Ref Range: 4.8-10.8 X10*3/uL) Red Blood Count 5.07 (Ref Range: 4.60-5.80 X10*6/uL) 5.15 (Ref Range: 4.60-5.80 X10*6/uL) 4.70 (Ref Range: 4.60-5.80 X10*6/uL) Hemoglobin 15.3 (Ref Range: 14.0-18.0 g/dl) 15.5 (Ref Range: 14.0-18.0 g/dl) 14.2 (Ref Range: 14.0-18.0 g/dl) Hematocrit 45.6 (Ref Range: 42.0-52.0 %) 46.6 (Ref Range: 42.0-52.0 %) 41.3?L (Ref Range: 42.0-52.0 %) Mean Corpuscular Volume [...] 45-73 %) 52.0 (Ref Range: 45-73 %) 82.0?H (Ref Range: 45-73 %) Imm Gran Pct Auto 0.1 (Ref Range: 0.0-0.4 %) 0.2 (Ref Range: 0.0-0.4 %) 0.5?H (Ref Range: 0.0-0.4 %) Lymphocytes Percent Auto 28.6 (Ref Range: 20-40 %) 35.6 (Ref Range: 20-40 %) 10.2?L (Ref Range: 20-40 %) Monocytes Percent Auto [...] 2.0-8.3 x10*3/uL) 3.0 (Ref Range: 2.0-8.3 x10*3/uL) 10.8?H (Ref Range: 2.0-8.3 x10*3/uL) Imm Gran Abs Auto 0.01 (Ref Range: 0.00-0.03 X10*3/uL) 0.01 (Ref Range: 0.00-0.03 X10*3/uL) 0.06?H (Ref Range: 0.00-0.03 X10*3/uL) Lymphocytes Absolute Auto [...] 0.000 (Ref Range: 0.0-0.012 X10*3/uL) * Examination: ???General Examination: ?GENERAL APPEARANCE:?pleasant, well nourished, well developed, in no acute distress, calm and relaxed, man.?HEAD:?atraumatic, normocephalic.?EYES:?eomi, perrla, anicteric, conjugate.?EARS:?normal.?NOSE:?septum intact.?ORAL CAVITY:?normal, unremarkable.?NECK/THYROID:?no jugular venous distention, no carotid bruit, thyroid normal.?LYMPH NODES:?no enlarged lymph nodes,spleen normal.?SKIN:?no suspicious lesions, anicteric.?HEART:?no clicks, gallops, murmurs, or rubs, regular rhythm, S1, S2 normal, no s3, or vascular bruits.?LUNGS:?clear to auscultation .?BREASTS:??no masses palpable bilaterally.?ABDOMEN:?bowel sounds normal, no ascites, no organomegaly, no mass.?RECTAL EXAM:?D referred to upcoming colonoscopy in January 2025.?MUSCULOSKELETAL:?extremities unremarkable, no clubbing, cyanosis or edema.?PERIPHERAL PULSES:?normal.?NEUROLOGIC:?alert and oriented, cranial nerves 2-12 grossly intact, deep tendon reflexes 2+ symmetrical, motor strength normal upper and lower extremities, sensory exam intact.?PSYCH:?alert, oriented.? : ???{'Heart':'Regular rhythm without premature heartbeats, heart rate normal, no murmur or abnormalities in valves', 'Blood Pressure': 'Slightly high', 'Weight': 'Within healthy range', 'Knee': 'Persistent issue, causing daily discomfort'}. ??? Assessment: * Assessment: 1.?Hyperlipidemia - E78.5 (P rimary)???Notes :His body mass index is 20.? He is no longer under weight.? His total cholesterol is 219. No change was made in his regimen.? Comprehensive blood work has been ordered, including a fasting lipid profile.???2.?Chest pain, unspecified type - R07.9???Notes :He reports no recent atypical chest pain.? He has been comfortable during the day as well as when he is sleeping.???3.?Immunization, tetanus-diphtheria - Z23???Notes :He was given a tetanus diphtheria vaccination today.? He tolerated this without any reaction.???4.?Psoriasis - L40.9???Notes :He has a small patch of psoriasis on his left jenkins. In the past this was thought to be eczema but the counter intelligence made the diagnosis.???5.?ADD (attention deficit disorder) - F98.8???Notes :He does not need medication for this problem at this time.??? Plan: * Treatment: 2.?Chest pain, unspecified t ype?LAB: PROFILE, FASTING (COMPREHENSIVE METABOLIC) ?LAB: CBC w DIFF ?LAB: Lipid Panel * Immunizations:? Tetanus and Diphtheria Toxoids Adsorbed : 0.5 mL (Dose No:1) (Route: Intramuscular) given by Umberto Koo MD on Left Arm (Immunization, tetanus-diphtheria) ???Immunization record has been reviewed and updated. * Procedure Codes:?85726 Td (a dult)15893 TD VACCINE NO PRSRV >/= 7 IM * Follow Up:?February, February 2025 (Reason: OV review labs, To discuss colonoscopy results and check cholesterol levels) * Images: * Sign off status: Completed true * Provider:?Umberto Koo MD Date:?10/04 Generated for Jane morris/Kathe/eTransmitting on:?02/17/2025 10:16 AM EDT History and Physical Notes * HPI (History [...] jeffrey,spleen normal [facility]CTAL EXAM: [facility] PSYCH: alert, oriented ORAL CAVITY: normal, unremarkable
--- OUTSIDE RECORDS SUMMARY | 2025-02-17 10:17 | XMS_ITS ---
Author Organization Umberto Koo III, MD Address [address] [place] [address] Care Team Providers Care Revival Clerk Name Role Phone Umberto Koo Primary Care Provider [phone] Reason For Referral Reason right knee pain Ev aluate and treat Diagnosis 1 Pain in right knee ( M25.561) Diagnosis 2 Other chronic pain ( G89.29) Referral Organization Umberto Koo III, MD Referring Provider First Name Umberto Referring Provider Last Name Hanane Referring Provider Speciality Internal M edicine Referred Provider [facility] ([place]) Referred Provider Specialty Orthopedic S urgery General Notes Leticia Hollingsworth CMA 10/29 03:59:03 PM >ref/demo/progress note faxed to [facility] pt contact and advised to call for appt Referral Priority Routine Social History Sex Assigned At : Social History Observation Description Sex Assigned At Male Encounters Encounter Location Date Provider Diagnosis Umberto Koo III, MD [address] [place] [address] [place] [address] 10/29/2024 Umberto Koo Plan Of Treatment Referrals Referral Date Details 10/29/2024 10/29/2024, right kn ee pain Evaluate and treat, [facility] ([place]) [facility] Next Appt Details Provider Name:Umberto Koo, 02/23/2025 03:30:00 PM, [address] [place] [address] [place], [phone], Progress Notes * Alisson OSMAN:[birth year] (68 yo M)Acc No.[id number]:10/29/2024 Patient:?Jeffrey OSMAN :1955???Age:68 Y???Sex:Male Address:[address] [place] [phone] Subjective: * Chief Complaints: * ??? * Medical History:? * Surgical History:? * Hospitalization/Major Diagno stic Procedure:? * Medications:? Objective: * Vitals:? * Physical Examination:? Assessment: Plan: * Treatment: * Procedure Codes:? * true * Date:? Generated for Jane morris/Kathe/eTransmitting on:?02/17/2025 10:16 AM EDT Consultation Request Notes Referral Date Referring Provider Referred Provider Alvaro rangel 10/29/2024 Umberto Koo [facility] ([place]) right knee pain Evaluate and treat
--- OUTSIDE RECORDS SUMMARY | 2025-02-17 10:17 | XMS_ITS | Patient Health Record ---
Author Organization Umberto Koo III, MD Address [address] [place] [address] Care Team Providers Care Special Events Coordinator Name Role Phone Umberto Koo Primary Care Provider Allergies Allergen (clinical drug ingredient) Drug/Non Drug Allergy documented on EMR Reaction Allergy Type Onset Date Status No Known Drug Allergy Unknown Drug Allergy Active Results Component Value Reference Range Notes Complete Blood Count Auto Di ff Reviewed date:10/16/2024 08:36:46 AM Interpretation: Performing Lab:[facility], [address] [place] [phone] Notes/Report: White Blood Count 6.7 4.8-10.8 X10*3/uL [...] NRBC Abs Auto 0.000 0.0-0.012 X10*3/uL Comprehensive Be[place]. Panel Fa st Reviewed date:10/16/2024 08:36:46 AM Interpretation: Performing Lab:[address] [address] Notes/Report: Sodium 139 135-145 mmol/L Potassium 4.9 [...] Alkaline Phosphatase 56 39-117 U/L Lipid Panel Reviewed date:10/16/2024 08:36:46 AM Interpretation: Performing Lab:[facility], [address] [place] [phone] Notes/Report: Triglycerides 54 <150 mg/dL Desirable Triglyceride: [...] patients with liver disease. Prostate Specific Antigen Reviewed date:10/16/2024 08:36:46 AM Interpretation: Performing Lab:[facility], [address] [place] [phone] Notes/Report: Prostate Specific Antigen 1.34 <0.05-4.0 ng/mL PSA methodology: [employer] Alinity i Chemiluminescent Microparticle Immunoassay (CMIA) Reason For Referral Reason right knee pain Ev aluate and treat Diagnosis 1 Pain in right knee ( M25.561) Diagnosis 2 Other chronic pain ( G89.29) Referral Organization Umberto Koo III, MD Referring Provider First Name Umberto Referring Provider Last Name Hanane Referring Provider Speciality Internal M edicine Referred Provider Artie Johnson [facility] ([place]) Referred Provider Specialty Orthopedic S urgery General Notes Leticia Hollingsworth CMA 10/29 03:59:03 PM >ref/demo/progress note faxed to [facility] pt contact and advised to call for appt Referral Priority Routine Immunizations Vaccine Route Administration Date Status Comme nts Influenza no Preserv 3 and > Unknown 08/22/2019 Administered COVID- 19 Vaccine IM Intramuscular 09/25/2021 Administered COVID 19 Moderna Unknown 09/22/2021 Administered COVID 19 Moderna Unknown 03/03/2021 Administered Influenza, quad Unknown 07/28/2020 Administered Influenza, quad Unknown 07/30/2022 Administered SHINGRIX Unknown 01/15/2024 Administered COVID 19 Moderna Unknown 01/26/2021 Administered Fluzone High-Dose (HD-IIV3) Unknown 09/28/2024 Administered Flu-IIv4pf Unknown 08/22/2019 Administered COVID-19 Moderna SPIKEVAX Unknown 09/28/2024 Administer ed SHINGRIX Unknown 05/27/2024 Administered Tetanus and Diphtheria Toxoids Adsorbed IM Intramuscular [...] Never (0 point) Points 3 Interpretation Negative Problems Problem Type SNOMED Code ICD Code Onset Dates Problem Status W/U Status Risk Notes Problem 26515131 Hyperlipidemia (E78.5) Active confirmed His body mass index is 20. He is no longer under weight. His total cholesterol is 219. No change was made in his regimen. Comprehensive blood work has been ordered, including a fasting lipid profile. Problem 17747001 Weight loss (R63.4) Active confirmed Since his last visit a year ago. He has lost 17 pounds. He says he was trying to lose weight. His body mass index is in the underweight range. A CT scan of the abdomen and pelvis has been ordered to evaluate the pain and weight loss. Problem 949749408 GERD (gastroesophagea l reflux disease) (K21.9) Active confirmed He has occasional heartburn which is well controlled with liquid antacids and omeprazole. Problem 60844564 Other chronic pain (G89.29) Active confirmed Problem 900562021547891 Bursitis of right shoulder (M75.51) Active confirmed Problem Benign prostatic hypertrophy without outflow obstruction (188101029) BPH (benign prostatic hypertrophy) (N40.0) Active confirmed Problem 8513187 Psoriasis (L40.9) Active confirmed He has a small patch of psoriasis on his left jenkins. In the past this was thought to be eczema but the color making supervisor made the diagnosis. Problem 433303541 Inguinal hernia (K40.90) Active confirmed He was referred to a general surgeon and the hernia has been repaired without recurrence. Problem 202813048 Non-cardiac chest pain (R07.89) Active confirmed He has had no further episodes of chest wall pain and is doing well. There is no pneumothorax. It is likely an intercostal nerve impingement or a transient pleurisy. There was no sign of pulmonary embolism. He will be observed. Problem 601260464 ADD (attention deficit disorder) (F98.8) Active confirmed He does not need medication for this problem at this time. Problem 353344250164693 Episodic migraine (G43.909) Active confirmed He will fill the prescription of sumatriptan and use that to see if it well relieve his migraine symptoms. He has nnot yett had the presccription filled. Problem 988801103 Clostridium difficile colitis (A04.72) Active confirmed He had an episode of this during the year. It proved very difficult to eradicate but he is free of it now. He has no symptoms referable to colitis. His stool today was guaiac negative. Vital Signs Heart Rate 97 /min 10/20/2024 Temperature 97.4 degrees Fahrenheit 10/20/2024 Blood pressure diastolic 80 mm Hg 10/20/2024 Height 69 in 10/20/2024 Blood pressure systolic 126 mm Hg 10/20/2024 Weight 153, 143.0 lbs 10/20/2024 BMI 22.59 kg/m2 10/20/2024 Encounters Encounter Location Date Provider Diagnosis Umberto Koo III, MD [address] [place] [address] [place] [address] 04/15/2024 Umberto Koo Psoriasis L40.9 ; Hyperlipidemia E78.5 ; Non-cardiac chest pain R07.89 ; GERD (gastroesophageal reflux disease) K21.9 ; ADD (attention deficit disorder) F98.8 and Clostridium difficile colitis A04.72 Umberto Koo III, MD [address] [place] [address] [place] [address] 10/20/2024 Umberto Koo Hyperlipidemia E78.5 ; Chest pain, unspecified type R07.9 ; Immunization, tetanus-diphtheria Z23 ; Psoriasis L40.9 and ADD (attention deficit disorder) F98.8 Umberto Koo III, MD [address] [place] [address] [address] [place] [address] 08/11/2024 Umberto Koo III, MD [address] [place] [address] [address] [place] [address] 10/29/2024 Umberto Koo Assessments Encounter Date Diagnosis (ICD Code) Assessment Notes Treat ment Notes Treatment Clinical Notes 04/15/2024 Hyperlipidemia (ICD-10 - E78.5) His lipids and weight are stable. No change in his regimen was made. 04/15/2024 Psoriasis (ICD-10 - L40.9) He has a small patch of psoriasis on his left jenkins. In the past this was thought to be eczema but the color making supervisor made the diagnosis. 10/20/2024 Hyperlipidemia (ICD-10 - E78.5) His body [...] as well as when he is sleeping. 04/15/2024 Non-cardiac chest pain (ICD-10 - R07.89) He has had no further episodes of chest wall pain and is doing well. There is no pneumothorax. It is likely an intercostal nerve impingement or a transient pleurisy. There was no sign of pulmonary embolism. He will be observed. 10/20/2024 Immunization, tetanus-diphtheria (ICD-10 - Z23) He was given a tetanus diphtheria vaccination today. He tolerated this without any reaction. 04/15/2024 GERD (gastroesophageal reflux disease) (ICD-10 - K21.9) He has occasional heartburn which is well controlled with liquid antacids and omeprazole. 10/20/2024 Psoriasis (ICD-10 - L40.9) He has a small patch of psoriasis on his left jenkins. In the past this was thought to be eczema but the color making supervisor made the diagnosis. 04/15/2024 ADD (attention deficit disorder) (ICD-10 - F98.8) He does not need medication for this problem at this time. 10/20/2024 ADD (attention deficit disorder) (ICD-10 - [...] today was guaiac negative. Plan Of Treatment Pending Test Test Name Order Date URINE DIP STICK 07/24/2021 PROFILE, FASTING (COMPREHENSIVE METABOLI C) 08/28/2023 PROFILE, FASTING (COMPREHENSIVE METABOLI C) 07/11/2022 PROFILE, FASTING (COMPREHENSIVE METABOLI C) 10/20/2024 PROFILE, FASTING (COMPREHENSIVE METABOLI C) 04/14/2018 PROFILE, FASTING (COMPREHENSIVE METABOLI C) 07/31/2023 PROFILE, FASTING (COMPREHENSIVE METABOLI C) 07/24/2021 PROFILE, FASTING (COMPREHENSIVE METABOLI C) 04/15/2024 PROFILE, FASTING (COMPREHENSIVE METABOLI C) 10/01/2017 PROFILE, RANDOM (COMPREHENSIVE METABOLIC ) 08/28/2022 PROFILE, RANDOM (COMPREHENSIVE METABOLIC ) 04/15/2019 LIPID PANEL 04/15/2019 LIPID PANEL 07/11/2022 LIPID PANEL 04/14/2018 LIPID PANEL 10/01/2017 FERRITIN 03/26/2017 PSA, TOTAL 10/01/2017 PSA, TOTAL 08/28/2023 PSA, TOTAL 04/15/2019 PSA, TOTAL 07/31/2023 PSA, TOTAL 07/24/2021 PSA, TOTAL 04/14/2018 PSA, TOTAL 04/15/2024 PSA, TOTAL SCREEN 07/11/2022 CBC w DIFF 04/14/2018 CBC w DIFF 04/15/2024 CBC w DIFF 10/01/2017 CBC w DIFF 08/28/2022 CBC w DIFF 03/26/2017 CBC w DIFF 10/20/2024 CBC w DIFF 04/15/2019 CBC w DIFF 07/31/2023 CBC w DIFF 07/24/2021 CBC w DIFF 07/11/2022 SED RATE (ESR) 08/28/2022 CLOSTRIDIUM DIFF TOXIN A&B (C DIFF) 03/05 LYME DISEASE IgG/IgM WB 08/28/2023 XR CHEST 2 VIEW PA & LAT 08/06/2019 VITAMIN D 25-OH TOTAL 04/15/2019 CBC WITH AUTO DIFF 08/28/2023 SARS COV2 RNA RT PCR 07/01/2020 SARS COV2 RNA RT PCR 08/10/2020 Lipid Panel 08/28/2023 Lipid Panel 07/31/2023 Lipid Panel 04/15/2024 Lipid Panel 10/20/2024 Stool Culture 03/27/2023 Lyme IgG/IgM w/reflex to WB 08/28/2023 Next Appt Details Provider Name:Umberto Koo, 02/23/2025 03:30:00 PM, [address] [place] [address] [address], [address], [place], [address], Insurance Providers Payer Name Payer Address Payer Phone Subscriber Number Group Number Insured Name Patient Relationship to Insured Coverage Start Date Coverage End Date MEDICARE NGS [address] [place] [phone] [id number] Jeffrey Peoples Self - patient is the insured [address] [place] [phone] [id number] Jeffrey Peoples Self - patient is the insured Medical (General) History Medical History History ICD Code non-cardiac chest pain eczema ADD atypical depression left lung pneumothorax left lung high sc hool {'Psoriasis': 'Stable with l ess frequent outbreaks', 'Pneumothorax operation': 'In childhood', 'Knee injury': 'In 1976'} Surgical History Surgery Date(Month/Year) pneumothorax repaired surgically by Dr. Tee Ren [place]oscopy, [place] [facility] [place] No history Hospitalization History Reason Date(Month/Year) No history
--- OUTSIDE RECORDS SUMMARY | 2025-02-17 10:17 | XMS_ITS ---
Author Organization Umberto Koo III, MD Address [address] [facility] [place] [address] Care Team Providers Care Overhead Line Worker Name Role Phone Umberto Koo Primary Care [...] Date Provider Diagnosis Umberto Koo III, MD [address] [place] [address] [place] [address] 08/12/2024 Umberto Koo Plan Of Treatment Medication Medication Name Sig Start Date Stop Date Notes SUMAtriptan Succinate 50 MG 1 tablet at least 2 hours between doses as needed Orally Twice a day 10/04/2023 Next Appt Details Provider Name:Umberto Koo, 02/23/2025 03:30:00 PM, [address] [place] [address] [place], [address], Progress Notes * Alisson OSMAN:[birth year] (69 yo M)Acc No.[id number]:08/12/2024 Progress Notes Patient:Jeffrey KAUR Provider:?Umebrto Koo MD :1955???Age:68 Y???Sex:Male Gagan e:08/12/2024 Address:[address] [place] [address], [id number] Subjective: * Chief Complaints: * ???1. New [...] by Dr. Tee Ren , colonoscopy, normal, [facility] [place] 2008. * Hospitalization/Major Diagno stic Procedure:?Denies Past Hospitalization. * Family History:?Father: dece ased 84 yrs, kidney failure, adult onset diabetes mellitus, cancer, diagnosed with Cancer, DM.?Mother: alive 87 yrs.?2 brother(s) , 1 sister(s) - healthy. 1 son(s) , 1 daughter(s) - healthy. .? * Social History:?Tobacco Use:?Tobacco Use/Smoking?Patient is a?nonsmoker ?Additional Findings: Tobacco Non-User?Aggressive non-smoker ???He was born in [place], [place]. * Medications:?Taking SUMAtrip guzman Succinate 50 [...] * Provider:?Umberto Koo MD Date:?07/2024 Generated for Printi ng/Kathe/eTransmitting on:?02/17/2025 10:16 AM EDT History and Physical Notes * HPI (History of Present Illness) Category Sub-Category Detail Notes COVID-19 Screening Questions Have you had any new onset fever, chills, cough, congestion, sore throat, shortness of breath, muscle aches?: No Have you been exposed to the virus withi n the last 10 days?: No Have you travelled internationally in [facility] last 10 days?: No Have you been [...]
--- OUTSIDE RECORDS SUMMARY | 2025-02-17 10:17 | XMS_ITS | Patient Health Record ---
Author Organization [facility] Address [address] [place] [address] Care Team Providers Care Service Coordinator Elderly Facility Name Role Phone Umberto Koo MD Primary Care Provider UnavailCampbell Smith Unavailable [phone] Allergies No Known Allergies Reason For Referral No Information Social History Tobacco Use: Social History Observation Description Date Details (start date - stop date) Never Smoker NA - NA Tobacco Use/Smoking Question Answer Notes Are you a: nonsmoker Additional Findings: Tobacco Non-User Current no n-smoker Alcohol Screen Question Answer Notes Did you have a drink contain ing alcohol in the past year? Yes How often did you have a dri nk containing alcohol in the past year? Monthly or less (1 point) Points 1 Interpretation Negative Tobacco use other than smoking: Question Answer Notes Are you an other tobacco user? No Plan Of Treatment No Information Insurance Providers Payer Name Payer Address Payer Phone Subscriber Number Group Number Insured Name Patient Relationship to Insured Coverage Start Date Coverage End Date [facility] [address] [place] [id number] Jeffrey Peoples Self - patient is the insured Medical (General) History Surgical History Surgery Date(Month/Year)
[2025-02-17 10:48] LABS: Basophils Percent Auto 0.4 % (0-2); Eosinophils Absolute Auto 0.1 X10*3/uL (0.0-0.4); Eosinophils Percent Auto 1.9 % (0-4); Hematocrit 42.5 % (42.0-52.0); Hemoglobin 14.8 g/dl (14.0-18.0); Imm Gran Abs Auto 0.02 X10*3/uL (0.00-0.03); Imm Gran Pct Auto 0.4 % (0.0-0.4); Lymphocytes Absolute Auto 1.4 X10*3/uL (1.2-4.9); Lymphocytes Percent Auto 26.9 % (20-40); Mean Corpuscular HGB Conc 34.8 g/dl (31.0-36.0); Mean Corpuscular Hemoglobin 30.8 pg (27.0-33.0); Mean Corpuscular Volume 88.4 fL (80.0-98.0); Mean Platelet Volume 10.1 fL (9.4-12.4); Monocytes Absolute Auto 0.6 X10*3/uL (0.1-1.2); Monocytes Percent Auto 11.1 % (2-11); Neutrophils Percent Auto 59.3 % (45-73); Platelet Count 280 X10*3/uL (160-400); Red Blood Count 4.81 X10*6/uL (4.60-5.80); Red Cell Distribution Width 12.3 % (11.0-16.0); White Blood Count 5.1 X10*3/uL (4.8-10.8)
[2025-02-17 11:25] LABS: Alanine Aminotransferase 26 U/L (0-40); Alkaline Phosphatase 59 U/L (39-117); Anion Gap 11 (12-20); Aspartate Amino Transferase 28 U/L (5-37); Bilirubin Total 0.5 mg/dL (0.0-1.0); Blood Urea Nitrogen 10 mg/dL (9-16); Calcium 9.4 mg/dL (8.4-10.2); Carbon Dioxide 29 mmol/L (22-29); Chloride 106 mmol/L (96-108); Cholesterol 182 mg/dL (<200); Estimated Glomerular Filt Rate > 60; Glucose Fasting 89 mg/dL (60-99); HDL Cholesterol 56 mg/dL (>40); LDL Cholesterol Calculated 116 mg/dL (<100); Potassium 4.7 mmol/L (3.3-5.1); Sodium 141 mmol/L (135-145); Total Protein 7.1 g/dL (6.5-8.0); Triglycerides 50 mg/dL (<150)
== END 2025-02-17 09:21 | disposition home or self-care (01) ==
LOC: HO.LAB 09:20
PROVIDERS: PCP Internal Medicine Medical Oncology; Visit Provider Internal Medicine Medical Oncology
DX: E78.5 Hyperlipidemia, unspecified (principal); R07.9 Chest pain, unspecified
CPT/HCPCS: 36415; 80053; 80061; 85025

== ENCOUNTER 2025-10-19 09:53 | Outpatient (REF) | payer MEDICARE, OTHER, SELFPAY ==
--- OUTSIDE RECORDS SUMMARY | 2024-08-11 08:58 | XMS_ITS ---
Author Organization Umberto Koo III, MD Address [address] [place] [address] [place] [address] Care Team Providers Care Head Worker Name Role Phone Dr. Umberto Koo III Primary Care Provider REASON FOR VISIT Message Social History Sex Assigned At : Social History Observation Description Sex Assigned At Male Encounters Encounter Location Date Provider Diagnosis Umberto Koo III, MD [address] [place] [address] [place] [address] 08/11/2024 Umberto Koo Plan Of Treatment Next Appt Details Provider Name:Umberto Koo , 10/26/2025 02:30:00 PM, [address] [place] [address] [place], [address], Progress Notes * Jeffrey OSMANDOB:[birth year] (68 yo M)Acc No.[id number]:08/11/2024 Patient: Harish WALTERJeffrey DELUCA :1955 A ge:68 Y S ex:Male Address:[address] [place] [address] * true * Date: Generated for Jane morris/Kathe/eTransmitting on: 12/20/2024 11:58 AM EST
--- OUTSIDE RECORDS SUMMARY | 2024-08-12 00:30 | XMS_ITS ---
Author Organization Umberto Koo III, MD Address [address] [facility] [place] [address] Care Team Providers Care Tow Truck Dispatcher Name Role Phone Dr. Umberto Koo III Primary Care Provider [phone] Allergies Allergen (clinical drug ingredient) Drug/Non Drug Allergy documented on EMR Reaction Allergy Type Onset Date Status No Known Drug Allergy Unknown Drug Allergy Active REASON FOR VISIT New Concern Medications Medication SIG (Take, Route, Frequency, Duration) Notes Start Date End Date Status SUMAtriptan Succinate 50 MG 1 tablet at least 2 hours between doses as needed Orally Twice a day 10/04/2023 Active Social History Tobacco Use: Social History Observation Description Date Details (start date - stop date) Never Smoker NA - NA Sex Assigned At : Social History Observation Description Sex Assigned At Male Tobacco Use/Smoking Question Answer Notes Patient is a nonsmoker Additional Findings: Tobacco Non-User Aggressive non-smoker Encounters Encounter Location Date Provider Diagnosis Umberto Koo III, MD [address] [place] [address] [address] [facility] [facility] [place] [address] 08/12/2024 Umberto Koo Plan Of Treatment Medication Medication Name Sig Start Date Stop Date Notes SUMAtriptan Succinate 50 MG 1 tablet at least 2 hours between doses as needed Orally Twice a day 10/04/2023 Next Appt Details Provider Name:Umberto Koo , 10/26/2025 02:30:00 PM, [address] [place] [address] [place], [address], Progress Notes * Alisson OSMAN:[birth year] (69 yo M)Acc No.[id number]:08/12/2024 Progress Notes Patient: Jeffrey FIGUEROA Provider: Emiliano Koo MD :1955 A ge:68 Y S ex:Male Date:08/12/2024 Address:[address] [place] [address], [id number] Subjective: * Chief Complaints: * 1 . New Concern. * HPI: C OVID-19 Screening: Questions H ave you had any new onset fever, chills, cough, congestion, sore throat, shortness of breath, muscle aches? N o H ave you been exposed to the virus within the last 10 days? N o H ave you travelled internationally in the last 10 days? N o H ave you been exposed to COVID-19 in the past? N o * ROS: G eneral/Constitutional: pain o nly normal aches and pains. C hills d enies.?Fatigue a dmits. F ever d enies. E NT: Decreased hearing d enies. R espiratory: Cough d enies. C ardiovascular: Chest pain with exertion d enies. D yspnea on exertion?denies. S hortness of breath d enies. G astrointestinal: Constipation d enies. D ecreased appetite d enies.?Diarrhea d enies. H eartburn d enies. N ausea d enies. R ectal bleeding?denies. V omiting d enies. H ematology: bruising d enies. p etechiae d enies. S wollen glands n one have been noted. G enitourinary: Frequent urination d enies. M usculoskeletal: Muscle aches d enies. P ainful joints d enies. S ciatica d enies. W eakness d enies. S kin: Itching d enies. R yaz d enies. S kin lesion(s)?denies. N eurologic: Difficulty speaking d enies. D izziness d enies.?Headache d enies. L ow back pain d enies. P sychiatric: Depressed mood d enies. * Medical History: N on-cardiac chest pain, Eczema, ADD, Atypical depression, Left lung pneumothorax left lung high school. * Surgical History: p neumothorax repaired surgically by Dr. Tee Ren , [place], [place] [facility] [place]. * Hospitalization/Major Diagno stic Procedure: D enies Past Hospitalization. * Family History: F ather: 84 yrs, kidney failure, adult onset diabetes mellitus, cancer, diagnosed with Cancer, DM. M other: alive 87 yrs. 2 brother(s) , 1 sister(s) - healthy. 1 son(s) , 1 daughter(s) - healthy. . * Social History: T obacco Use: T obacco Use/Smoking P atient is a n onsmoker A dditional Findings: Tobacco Non-User A ggressive non-smoker H e was born in [place], [place]. * Medications: T aking SUMAtriptan Succinate 50 MG Tablet 1 tablet at least 2 hours between doses as needed Orally Twice a day , Medication List reviewed and reconciled with the patient * Allergies: N o Known Drug Allergy. Objective: * Vitals: * Examination: G eneral Examination: GENERAL APPEARANCE: p leasant, well nourished, well developed, in no acute distress, calm and relaxed. HEAD: a traumatic, normocephalic. EYES: e starr, perrla, anicteric, conjugate. EARS: n ormal. NOSE: s eptum intact. ORAL CAVITY: n ormal, unremarkable. NECK/THYROID: n o jugular venous distention, no carotid bruit, thyroid normal. LYMPH NODES: n o enlarged lymph nodes,spleen normal. SKIN: n o suspicious lesions, anicteric. HEART: n o clicks, gallops, murmurs, or rubs, regular rhythm, S1, S2 normal, no s3, or vascular bruits. LUNGS: c lear to auscultation . BREASTS: no masses palpable bilaterally. ABDOMEN: b owel sounds normal, no ascites, no organomegaly, no mass. RECTAL EXAM: n ot examined. MUSCULOSKELETAL: e xtremities unremarkable, no clubbing, cyanosis or edema. PERIPHERAL PULSES: n ormal. NEUROLOGIC: a lert and oriented, cranial nerves 2-12 grossly intact, deep tendon reflexes 2+ symmetrical, motor strength normal upper and lower extremities, sensory exam intact. PSYCH: a lert, oriented. Assessment: Plan: * Treatment: * Images: * The named appointment provid er may or may not be the originator of this progress note, and it is not deemed complete until electronically signed by the appointment provider. Sign off status: Pending * Provider: Emiliano Koo MD Date: Generated for Krissyi arturo/Kathe/eTransmitting on: 1 12/20/2024 11:59 AM EST History and Physical Notes * HPI (History of Present Illness) Category Sub-Category Detail Notes COVID-19 Screening Questions Have you had any new onset fever, chills, cough, congestion, sore throat, shortness of breath, muscle aches?: No Have you been exposed to the virus withi n the last 10 days?: No Have you travelled internationally in last 10 days?: No Have you been exposed to COVID-19 in the past?: No Examination Category Sub-Category Detail Notes General Examination GENERAL APPEARANCE: pleasant , well nourished, well developed, in no acute distress, calm and relaxed HEAD: atraumatic, normocep halic EYES: eomi, perrla, anicte ida, conjugate EARS: normal NOSE: septum intact NECK/THYROID: no jugular venous di stention, no carotid bruit, thyroid normal HEART: no clicks, gallops, murmurs, or rubs, regular rhythm, S1, S2 normal, no s3, or vascular bruits LUNGS: clear to auscultatio n ABDOMEN: bowel sounds normal, no ascites, no organomegaly, no mass NEUROLOGIC: alert and oriented, cranial nerves 2-12 grossly intact, deep tendon reflexes 2+ symmetrical, motor strength normal upper and lower extremities, sensory exam intact SKIN: no suspicious lesion s, anicteric PERIPHERAL PULSES: normal BREASTS: no masses palpable b ilaterally MUSCULOSKELETAL: extremities unremark able, no clubbing, cyanosis or edema LYMPH NODES: no enlarged lymph no jeffrey,spleen normal RECTAL EXAM: not examined PSYCH: alert, oriented ORAL CAVITY: normal, unremarkable
--- OUTSIDE RECORDS SUMMARY | 2024-10-20 11:00 | XMS_ITS ---
Author Organization Umberto Koo III, MD Address [address] [place] [address] Care Team Providers Care Business Performance Advisor Name Role Phone Dr. Umberto Koo III [...] Date Provider Diagnosis Umberto Koo III, MD [address] [place] [address] [place] [address] 10/20/2024 Umberto Koo Hyperlipidemia E78.5 ; Chest [...] was thought to be eczema but the jewelry finisher made the diagnosis. 10/20/2024 ADD (attention deficit [...] check cholesterol levels Provider Name:Umberto Koo , 10/26/2025 02:30:00 PM, [address] [place] [address] [place], [place], [phone], Progress Notes * Alisson OSMAN:[birth year] (68 yo M)Acc No.[id number]:10/20/2024 Progress Notes Patient: Jeffrey FIGUEROA Provider: Emiliano Koo MD :1955 A ge:68 Y S ex:Male Date:10/20/2024 Address:[address] [place], [place] [id number] Subjective: * Chief Complaints: * A nnual Exam * HPI: D epression Screening: PHQ-9 L ittle interest or pleasure in doing things?Not at all F eeling down, depressed, or hopeless S everal days T rouble falling or staying asleep, or sleeping too much N early every day F eeling tired or having little energy S everal P oor appetite or overeating S everal F eeling bad about yourself or that [...] surgically by Dr. Tee Ren colonoscopy, normal, [facility] [place] history * Hospitalization/Major Diagno stic Procedure: N o history * Family History: F ather: 84 yrs, kidney failure, adult onset diabetes mellitus, cancer, diagnosed with Cancer, DM. M other: 99 yrs. 2 brother(s) , 1 sister(s) - healthy. 1 son(s) , 1 daughter(s) - healthy. . * Social History: T obacco Use: T obacco Use/Smoking P tung is a n onsmoker A dditional Findings: [...] P oints 3 I nterpretation N egative Delia dos santos was born in [place], [place]. {'Exercise': 'Working out more, trying to [...] Specific Antige n * Collection Date 10/13/2024 09/07/2023 07/17/2022 Collection [...] mg/dL) 60 (Ref Range: mg/dL) * Lab:Comprehensive [place]. Pane l Fast * Collection Date 10/13/2024 [...] was thought to be eczema but the jewelry finisher made the diagnosis. 5 . A DD [...] updated. * Procedure Codes: 9 0714 Td (adult)08813 TD VACCINE NO PRSRV >/= 7 IM * Follow Up: A pril, February 2025 (Reason: OV review labs, To discuss colonoscopy results and check cholesterol levels) * Images: * Sign off status: Completed true * Provider: Emiliano Koo MD Date: 12/21/2023 Generated for Jane morris/Kathe/Fely on: 12/20/2024 11:58 AM EST History and Physical Notes * [...] jeffrey,spleen normal RECTAL EXAM: D referred to [facility] [place] [facility] colonoscopy in January 2025 PSYCH: alert, oriented ORAL CAVITY: normal, unremarkable
--- OUTSIDE RECORDS SUMMARY | 2024-10-29 10:54 | XMS_ITS ---
Author Organization Umberto Koo III, MD Address [address] [place] [address] Care Team Providers Care Equipment Hire Manager Name Role Phone Dr. Umberto Koo III Primary Care Provider Reason For Referral Reason right knee pain Ev aluate and treat Diagnosis 1 Pain in right knee ( M25.561) Diagnosis 2 Other chronic pain ( G89.29) Referral Organization Umberto Koo III, MD Referring Provider First Name Umberto Referring Provider Last Name Hanane Referring Provider Speciality Internal M edicine Referred Provider [place]) Referred Provider Specialty Orthopedic S urgery General Notes Leticia Hollingsworth CMA 10/29 03:59:03 PM >ref/demo/progress note faxed to [facility] pt contact and advised to call for appt Referral Priority Routine Social History Sex Assigned At : Social History Observation Description Sex Assigned At Male Encounters Encounter Location Date Provider Diagnosis Umberto Koo III, MD [address] [place] [address] [place] [address] 10/29/2024 Umberto Koo Plan Of Treatment Referrals Referral Date Details 10/29/2024 10/29/2024, right kn ee pain Evaluate and treat, [facility]) [place] Next Appt Details Provider Name:Umberto Koo , 10/26/2025 02:30:00 PM, [address] [place] [address] [place], [address], Progress Notes * Alisson OSMAN:[birth year] (68 yo M)Acc No.[id number]:10/29/2024 Patient: Jeffrey FIGUEROA :1955 A ge:68 Y S ex:Male Address:[address] [place] [id number] Subjective: * Chief Complaints: * * Medical History: * Surgical History: * Hospitalization/Major Diagno stic Procedure: * Medications: Objective: * Vitals: * Physical Examination: Assessment: Plan: * Treatment: * Procedure Codes: * true * Date: Generated for Jane morris/Kathe/eTransmitting on: 1 12/20/2024 11:58 AM EST Consultation Request Notes Referral Date Referring Provider Referred Provider Alvaro rangel 10/29/2024 Umberto Koo Ort [facility]) right knee pain Evaluate and treat
--- OUTSIDE RECORDS SUMMARY | 2025-02-23 10:30 | XMS_ITS ---
Author Organization Umberto Koo III, MD Address [address] [place] [address] Care Team Providers Care Sales Correspondence Clerk Name Role Phone Dr. Umberto Koo III Primary Care Provider Allergies Allergen (clinical drug ingredient) Drug/Non Drug Allergy documented on EMR Reaction Allergy Type Onset Date Status No Known Drug Allergy Unknown Drug Allergy Active REASON FOR VISIT Psoriasis, Hyperlipidemia, Attention deficit, GERD, rnia, Benign prostatic hypertrophy Social History Tobacco Use: Social History Observation Description Date Details (start date - stop date) Never Smoker NA - NA Sex Assigned At : Social History Observation Description Sex Assigned At Male Tobacco Control (Standard) Question Answer Notes Tobacco use: Nonsmoker Additional Findings: Tobacco non-user Aggressive nonsmoker Vital Signs Temperature 97.3 degrees Fahrenheit 02/24/20 25 Blood pressure systolic 113 mm Hg 02/24/20 25 Blood pressure diastolic 60 mm Hg 025 Heart Rate 95 /min 02/23/2025 Height 69 in 02/23/2025 Weight 148 lbs 02/23/2025 BMI 21.85 kg/m2 02/23/2025 Encounters Encounter Location Date Provider Diagnosis Umberto Koo III, MD [address] [place] [address] [place] [address] 02/23/2025 Umberto Koo Psoriasis L40.9 ; Hyperlipidemia E78.5 ; ADD (attention deficit disorder) F98.8 ; GERD (gastroesophageal reflux disease) K21.9 ; Inguinal hernia K40.90 and BPH (benign prostatic hypertrophy) N40.0 Assessments Encounter Date Diagnosis (ICD Code) Assessment Notes Treat ment Notes Treatment Clinical Notes 02/23/2025 Psoriasis (ICD-10 - L40.9) He has a small patch of psoriasis on his left jenkins. In the past this was thought to be eczema but the strategic development manager made the diagnosis. 02/23/2025 Hyperlipidemia (ICD-10 - E78.5) His body mass index is 21. He is no longer under weight. His total cholesterol is stable. No change was made in his regimen. Comprehensive blood work has been ordered, including a fasting lipid profile. 02/23/2025 ADD (attention deficit disorder) (ICD-10 - F98.8) He does not need medication for this problem at this time. 02/23/2025 GERD (gastroesophageal reflux disease) (ICD-10 - K21.9) He has occasional heartburn which is well controlled with liquid antacids and omeprazole. 02/23/2025 Inguinal hernia (ICD-10 - K40.90) He was referred to a general surgeon in 2013 and the hernia has been repaired without recurrence. 02/23/2025 BPH (benign prostati c hypertrophy) (ICD-10 - N40.0) He rises from sleep once or twice a night depending on fluid intake. We reviewed lifestyle modifications to reduce this. Plan Of Treatment Next Appt Details Follow Up: 8 Months, Reason: Annual Exam Provider Name:Umberto Moreira Hanane , 10/26/2025 02:30:00 PM, [address] [place] [address], [address], Progress Notes * Jeffrey OSMANDOB:[birth year] (69 yo M)Acc No.[id number]:02/23/2025 Progress Notes Patient: Jeffrey FIGUEROA Provider: Emiliano Koo MD :1955 A ge:69 Y S ex:Male Date:02/23/2025 Address:[address] [place], [place] [id number] Subjective: * Chief Complaints: * P soriasisHyperlipidemiaAttention deficitGERDRniaBenign prostatic hypertrophy * HPI: C OVID-19 Screening: He returns to the office for a periodic scheduled visit to manage his medical issues. He says he feels well and that his psoriasis is well controlled. His main complaint is that some psoriasis on his feet causes itching and that he has onychomycosis in a couple of toes. He admits nocturia once or twice a night. We discussed lifestyle modifications that would reduce nocturia. He has had no migraine headaches since his last visit.He continues to work full- time. He has had no chest pain or shortness of breath.He has gained 5 pounds in his body mass index is 21.8.He has had no diarrhea. He has a history of Clostridium difficile. Questions H ave you had any new onset fever, chills, cough, congestion, sore throat, shortness of breath, muscle aches? N o * ROS: G eneral/Constitutional: pain [...] enies. D iarrhea d enies. H eartburn d enies. N ausea d enies. R ectal bleeding d enies. V omiting d enies. H ematology: bruising d enies. p etechiae d enies. S wollen glands n one have been noted. G enitourinary: Frequent urination t wice a night. M usculoskeletal: Muscle aches d enies. P ainful joints R ight shoulder. S ciatica d enies. W eakness d enies. S kin: Itching d enies. R yaz d enies. S kin lesion(s)?denies. N eurologic: Difficulty speaking d enies. D izziness d enies.?Headache d enies. L ow back pain d enies. P sychiatric: Depressed mood d enies. * Medical History: * Surgical History: p neumothorax repaired surgically by Dr. Tee Ren colonoscopy, normal, [facility] [place] 2008Left inguinal herniorrhaphy, Dr. Izquiedro 2013 * Hospitalization/Major Diagno stic Procedure: N o history * Family History: F ather: 84 yrs, kidney failure, adult onset diabetes mellitus, cancer, diagnosed with DM, Cancer. M other: 99 yrs. 2 brother(s) , 1 sister(s) - healthy. 1 son(s) , 1 daughter(s) - healthy. . * Social History: T obacco Use: T obacco Control (Standard) T obacco use: N onsmoker A dditional Findings: Tobacco non-user A ggressive nonsmoker Delia mroeira was born in [place], [place]. {'Exercise': 'Working out more, trying to gain weight', 'Diet': 'Considering adding protein powder and creatine'}. * Medications: N one * Allergies: N o Known Drug Allergyno[Allergies Verified] Objective: * Vitals: H t: 69, Wt:148, BMI:21.85, BP:113/60, HR:95, Temp:97.3, Wt-k.13. * P ast Orders: Lab:Complete Blood Count Aut o Diff * Collection Date 02/17/2025 10/13/2024 09/07/2023 Collection Time 09:47 AM 09:14 AM 08:49 AM Order Date 02/17/2025 10/13/2024 09/07/2023 White Blood Count 5.1 (Ref Range: 4.8-10.8 X10*3/uL) 6.7 (Ref Range: 4.8-10.8 X10*3/uL) 5.8 (Ref Range: 4.8-10.8 X10*3/uL) Red Blood Count 4.81 (Ref Range: 4.60-5.80 X10*6/uL) 5.07 (Ref Range: 4.60-5.80 X10*6/uL) 5.15 (Ref Range: 4.60-5.80 X10*6/uL) Hemoglobin 14.8 (Ref Range: 14.0-18.0 g/dl) 15.3 (Ref Range: 14.0-18.0 g/dl) 15.5 (Ref Range: 14.0-18.0 g/dl) Hematocrit 42.5 (Ref Range: 42.0-52.0 %) 45.6 (Ref Range: 42.0-52.0 %) 46.6 (Ref Range: 42.0-52.0 %) Mean Corpuscular Volume 88.4 (Ref Range: 80.0-98.0 fL) 89.9 (Ref Range: 80.0-98.0 fL) 90.5 (Ref Range: 80.0-98.0 fL) Mean Corpuscular Hemoglobin 30.8 (Ref Range: 27.0-33.0 pg) 30.2 (Ref Range: 27.0-33.0 pg) 30.1 (Ref Range: 27.0-33.0 pg) Mean Corpuscular HGB Conc 34.8 (Ref Range: 31.0-36.0 g/dl) 33.6 (Ref Range: 31.0-36.0 g/dl) 33.3 (Ref Range: 31.0-36.0 g/dl) Red Cell Distribution Width 12.3 (Ref Range: 11.0-16.0 %) 12.6 (Ref Range: 11.0-16.0 %) 12.3 (Ref Range: 11.0-16.0 %) Platelet Count 280 (Ref Range: 160-400 X10*3/uL) 294 (Ref Range: 160-400 X10*3/uL) 297 (Ref Range: 160-400 X10*3/uL) Mean Platelet Volume 10.1 (Ref Range: 9.4-12.4 fL) 10.2 (Ref Range: 9.4-12.4 fL) 10.5 (Ref Range: 9.4-12.4 fL) Neutrophils Percent Auto 59.3 (Ref Range: 45-73 %) 58.3 (Ref Range: 45-73 %) 52.0 (Ref Range: 45-73 %) Imm Gran Pct Auto 0.4 (Ref Range: 0.0-0.4 %) 0.1 (Ref Range: 0.0-0.4 %) 0.2 (Ref Range: 0.0-0.4 %) Lymphocytes Percent Auto 26.9 (Ref Range: 20-40 %) 28.6 (Ref Range: 20-40 %) 35.6 (Ref Range: 20-40 %) Monocytes Percent Auto 11.1 H (Ref Range: 2-11 %) 10.8 (Ref Range: 2-11 %) 9.8 (Ref Range: 2-11 %) Eosinophils Percent Auto 1.9 (Ref Range: 0-4 %) 1.9 (Ref Range: 0-4 %) 2.2 (Ref Range: 0-4 %) Basophils Percent Auto 0.4 (Ref Range: 0-2 %) 0.3 (Ref Range: 0-2 %) 0.2 (Ref Range: 0-2 %) NRBC Pct Auto 0.0 (Ref Range: 0.0-0.2 /100WBC) 0.0 (Ref Range: 0.0-0.2 /100WBC) 0.0 (Ref Range: 0.0-0.2 /100WBC) Neutrophils Absolute Auto 3.0 (Ref Range: 2.0-8.3 x10*3/uL) 3.9 (Ref Range: 2.0-8.3 x10*3/uL) 3.0 (Ref Range: 2.0-8.3 x10*3/uL) Imm Gran Abs Auto 0.02 (Ref Range: 0.00-0.03 X10*3/uL) 0.01 (Ref Range: 0.00-0.03 X10*3/uL) 0.01 (Ref Range: 0.00-0.03 X10*3/uL) Lymphocytes Absolute Auto 1.4 (Ref Range: 1.2-4.9 X10*3/uL) 1.9 (Ref Range: 1.2-4.9 X10*3/uL) 2.1 (Ref Range: 1.2-4.9 X10*3/uL) Monocytes Absolute Auto 0.6 (Ref Range: 0.1-1.2 X10*3/uL) 0.7 (Ref Range: 0.1-1.2 X10*3/uL) 0.6 (Ref Range: 0.1-1.2 X10*3/uL) Eosinophils Absolute Auto 0.1 (Ref Range: 0.0-0.4 X10*3/uL) 0.1 (Ref Range: 0.0-0.4 X10*3/uL) 0.1 (Ref Range: 0.0-0.4 X10*3/uL) Basophils Absolute Auto 0.0 (Ref Range: 0.0-0.2 X10*3/uL) 0.0 (Ref Range: 0.0-0.2 X10*3/uL) 0.0 (Ref Range: 0.0-0.2 X10*3/uL) NRBC Abs Auto 0.000 (Ref Range: 0.0-0.012 X10*3/uL) 0.000 (Ref Range: 0.0-0.012 X10*3/uL) 0.000 (Ref Range: 0.0-0.012 X10*3/uL) * Lab:Lipid Panel * Collection Date 02/17/2025 10/13/2024 09/07/2023 Collection Time 09:47 AM 09:14 AM 08:49 AM Order Date 02/17/2025 10/13/2024 09/07/2023 Triglycerides 50 (Ref Range: <150 mg/dL) 54 (Ref Range: <150 mg/dL) 54 (Ref Range: <150 mg/dL) Cholesterol 182 (Ref Range: <200 mg/dL) 219 H (Ref Range: <200 mg/dL) 197 (Ref Range: <200 mg/dL) LDL Cholesterol Calculated 116 H (Ref Range: <100 mg/dL) 148 H (Ref Range: <100 mg/dL) 133 H (Ref Range: <100 mg/dL) HDL Cholesterol 56 (Ref Range: >40 mg/dL) 61 (Ref Range: >40 mg/dL) 54 (Ref Range: >40 mg/dL) * Lab:[facility]prehensive [place]. Pane l Fast * Collection Date 02/17/2025 10/13/2024 09/07/2023 Collection Time 09:47 AM 09:14 AM 08:49 AM Order Date 02/17/2025 10/13/2024 09/07/2023 Sodium 141 (Ref Range: 135-145 mmol/L) 139 (Ref Range: 135-145 mmol/L) 139 (Ref Range: 135-145 mmol/L) Bilirubin Total 0.5 (Ref Range: 0.0-1.0 mg/dL) 0.4 (Ref Range: 0.0-1.0 mg/dL) 0.5 (Ref Range: 0.0-1.0 mg/dL) Aspartate Amino Transferase 28 (Ref Range: 5-37 U/L) 26 (Ref Range: 5-37 U/L) 22 (Ref Range: 5-37 U/L) Alanine Aminotransferase 26 (Ref Range: 0-40 U/L) 21 (Ref Range: 0-40 U/L) 19 (Ref Range: 0-40 U/L) Total Protein 7.1 (Ref Range: 6.5-8.0 g/dL) 7.9 (Ref Range: 6.5-8.0 g/dL) 7.5 (Ref Range: 6.5-8.0 g/dL) Albumin Level 4.0 (Ref Range: 3.5-5.0 g/dL) 4.3 (Ref Range: 3.5-5.0 g/dL) 4.2 (Ref Range: 3.5-5.0 g/dL) Alkaline Phosphatase 59 (Ref Range: 39-117 U/L) 56 (Ref Range: 39-117 U/L) 55 (Ref Range: 39-117 U/L) Potassium 4.7 (Ref Range: 3.3-5.1 mmol/L) 4.9 (Ref Range: 3.3-5.1 mmol/L) 4.9 (Ref Range: 3.3-5.1 mmol/L) Chloride 106 (Ref Range: 96-108 mmol/L) 102 (Ref Range: 96-108 mmol/L) 103 (Ref Range: 96-108 mmol/L) Carbon Dioxide 29 (Ref Range: 22-29 mmol/L) 29 (Ref Range: 22-29 mmol/L) 30 H (Ref Range: 22-29 mmol/L) Anion Gap 11 L (Ref Range: 12-20) 13 (Ref Range: 12-20) 11 L (Ref Range: 12-20) Blood Urea Nitrogen 10 (Ref Range: 9-16 mg/dL) 12 (Ref Range: 9-16 mg/dL) 12 (Ref Range: 9-16 mg/dL) Creatinine 0.99 (Ref Range: 0.5-1.4 mg/dL) 0.93 (Ref Range: 0.5-1.4 mg/dL) 0.91 (Ref Range: 0.5-1.4 mg/dL) Estimated Glomerular Filt Rate > 60 > 60 > 60 Glucose Fasting 89 (Ref Range: 60-99 mg/dL) 94 (Ref Range: 60-99 mg/dL) 93 (Ref Range: 60-99 mg/dL) Calcium 9.4 (Ref Range: 8.4-10.2 mg/dL) 9.5 (Ref Range: 8.4-10.2 mg/dL) 9.5 (Ref Range: 8.4-10.2 mg/dL) * Examination: G eneral Examination: GENERAL APPEARANCE: p wmasant, well nourished, well developed, in no acute [...] normal, no ascites, no organomegaly, no mass, Old left inguinal herniorrhaphy. RECTAL EXAM: n ot examined. MUSCULOSKELETAL: e xtremities unremarkable, no clubbing, cyanosis or edema, Mild discomfort to elevation of the right shoulder above the horizon. PERIPHERAL PULSES: n ormal. NEUROLOGIC: a lert and oriented, cranial nerves 2-12 grossly intact, deep tendon reflexes 2+ symmetrical, motor strength normal upper and lower extremities, sensory exam intact. PSYCH: a lert, oriented. Assessment: * Assessment: 1. P soriasis - L40.9 (Primary) N otes :He has a small patch of psoriasis on his left jenkins. In the past this was thought to be eczema but the strategic development manager made the diagnosis. 2 . H yperlipidemia - E78.5 N otes :His body mass index is 21. He is no longer under weight. His total cholesterol is stable. No change was made in his regimen. Comprehensive blood work has been ordered, including a fasting lipid profile. 3 . A DD (attention deficit disorder) - F98.8 N otes :He does not need medication for this problem at this time. 4 . G ERD (gastroesophageal reflux disease) - K21.9 N otes :He has occasional heartburn which is well controlled with liquid antacids and omeprazole. 5 . I nguinal hernia - K40.90 N otes :He was referred to a general surgeon in 2013 and the hernia has been repaired without recurrence. 6 . B PH (benign prostatic hypertrophy) - N40.0 N otes :He rises from sleep once or twice a night depending on fluid intake. We reviewed lifestyle modifications to reduce this. Plan: * Treatment: * Procedure Codes: * Follow Up: 8 Months (Reason: Annual Exam) * Images: * Sign off status: Completed true * Provider: Emiliano Koo MD Date: 0 02/23/2025 Generated for Jane morris/Kathe/Jessiitting on: 1 12/20/2024 11:58 AM EST History and Physical Notes * HPI (History of Present Illness) Category Sub-Category Detail Notes COVID-19 Screening Questions Have you had any new onset fever, chills, cough, congestion, sore throat, shortness of breath, muscle aches?: No Examination Category Sub-Category Detail Notes General [...] normal, no ascites, no organomegaly, no mass, Old left inguinal herniorrhaphy NEUROLOGIC: alert and oriented, cranial nerves 2-12 grossly intact, deep tendon reflexes 2+ symmetrical, motor strength normal upper and lower extremities, sensory exam intact SKIN: no suspicious lesion s, anicteric PERIPHERAL PULSES: normal BREASTS: no masses palpable b ilaterally MUSCULOSKELETAL: extremities unremark able, no clubbing, cyanosis or edema, Mild discomfort to elevation of the right shoulder above the horizon LYMPH NODES: no enlarged lymph no jeffrey,spleen normal RECTAL EXAM: not examined PSYCH: alert, oriented ORAL CAVITY: normal, unremarkable
--- OUTSIDE RECORDS SUMMARY | 2025-10-08 09:15 | XMS_ITS ---
Author Organization Umberto Koo III, MD Address [address] [place] [address] Care Team Providers Care Attraction Worker Name Role Phone Dr. Umberto Koo III Primary Care Provider Allergies Allergen (clinical drug ingredient) Drug/Non Drug Allergy documented on EMR Reaction Allergy Type Onset Date Status No Known Drug Allergy Unknown Drug Allergy Active REASON FOR VISIT bilateral groin rash, ADHD, hyperlipidemia, gerd, BPH, migraines Social History Tobacco Use: Social History Observation Description Date Details (start date - stop date) Never Smoker NA - NA Sex Assigned At : Social History Observation Description Sex Assigned At Male Tobacco Control (Standard) Question Answer Notes Tobacco use: Nonsmoker Additional Findings: Tobacco non-user Aggressive nonsmoker Problems Problem Type SNOMED Code ICD Code Onset Dates Problem Status W/U Status Risk Notes Problem [id number] Tinea cruris (B35.6) Active confirmed He was instructed on the use of terbinafine twice a day for 14 days. Vital Signs Temperature 97.7 degrees Fahrenheit 10/08/20 25 Blood pressure systolic 131 mm Hg 10/08/20 25 Blood pressure diastolic 68 mm Hg 025 Heart Rate 63 /min 10/08/2025 Height 69 in 10/08/2025 Weight 150 lbs 10/08/2025 BMI 22.15 kg/m2 10/08/2025 Encounters Encounter Location Date Provider Diagnosis Umberto Koo III, MD [address] [place] [address] [place] [address] 10/08/2025 Umberto Koo Hyperlipidemia E78.5 ; Tinea cruris B35.6 ; BPH (benign prostatic hypertrophy) N40.0 ; Psoriasis L40.9 ; ADD (attention deficit disorder) F98.8 ; GERD (gastroesophageal reflux disease) K21.9 and Clostridium difficile colitis A04.72 Assessments Encounter Date Diagnosis (ICD Code) Assessment Notes Treat ment Notes Treatment Clinical Notes 10/08/2025 Hyperlipidemia (ICD-10 - E78.5) Comprehensive blood work including a fasting lipid profile will be done in the near future when he comes in again. His values have been stable. 10/08/2025 Tinea cruris (ICD-10 - B35.6) He was instructed on the use of terbinafine twice a day for 14 days. 10/08/2025 BPH (benign prostati c hypertrophy) (ICD-10 - N40.0) He admits to nocturia once a night. We discussed lifestyle modifications I could reduce this. 10/08/2025 Psoriasis (ICD-10 - L40.9) He has a small patch of psoriasis on his left jenkins. In the past this was thought to be eczema but the surgical instrument repair specialist made the diagnosis. 10/08/2025 ADD (attention deficit disorder) (ICD-10 - F98.8) He does not need medication for this problem at this time. 10/08/2025 GERD (gastroesophageal reflux disease) (ICD-10 - K21.9) He has occasional heartburn which is well controlled with liquid antacids and omeprazole. 10/08/2025 Clostridium difficil e colitis (ICD-10 - A04.72) He has had no further episodes of this infection since his last visit.. Plan Of Treatment Pending Test Test Name Order Date PROFILE, FASTING (COMPREHENSIVE METABOLI C) 10/08/2025 PSA, TOTAL 10/08/2025 CBC w DIFF 10/08/2025 LYME IGM & IGG RFLX WB 10/08/2025 Lipid Panel 10/08/2025 Next Appt Details Follow Up: As Scheduled, Varsha son: Annual Exam Provider Name:Umberto Koo , 10/26/2025 02:30:00 PM, [address] [place] [address] [address], [place], [address], Progress Notes * Alisson OSMAN:[birth year] (69 yo M)Acc No.[id number]:10/08/2025 Progress Notes Patient: Jeffrey FIGUEROA Provider: Emiliano Koo MD :1955 A ge:69 Y S ex:Male Date:10/08/2025 Address:[address] [place] [address], [phone] Subjective: * Chief Complaints: * B ilateral groin rashADHDHyperlipidemiaGerdBPHMigraines * HPI: C OVID-19 Screening: He returns to the office with a new complaint of a groin rash.? Upon inspection there was bilateral tinea versus. He was given a topical fungal preparation an explanation of the etiology. A follow-up visit was arranged. He has had no recurrence of Clostridium difficile. He feels healthy and well. He had no chest pain shortness of breath joint pain or other skin lesions. Questions H ave you had any new [...] S kin: Itching d enies. R yaz b ilateral groins. S kin lesion(s) d enies. N eurologic: Difficulty speaking d enies. D izziness d enies.?Headache d enies. L ow back pain d enies. P sychiatric: Depressed mood d enies. * Medical History: * Surgical History: p neumothorax repaired surgically by Dr. Tee Ren colonoscopy, normal, [facility] [place]Left inguinal herniorrhaphy, Dr. Izquierdo 2013 * Hospitalization/Major [...] dditional Findings: Tobacco non-user A ggressive nonsmoker H e was born in [place], [place]. {'Exercise': 'Working out more, trying to gain weight', 'Diet': 'Considering adding protein powder and creatine'}. * Medications: N one * Allergies: N o Known Drug Allergyno[Allergies Verified] Objective: * Vitals: H t: 69, Wt:150, BMI:22.15, BP:131/68, HR:63, Temp:97.7, Wt-k.04. * Examination: G eneral Examination: GENERAL APPEARANCE: p leasant, well nourished, well developed, in no acute distress, calm and relaxed: man. HEAD: a traumatic, normocephalic. EYES: e starr, perrla, anicteric, conjugate. EARS: n ormal. NOSE: s eptum intact. ORAL CAVITY: n ormal, unremarkable. NECK/THYROID: n o jugular venous distention, no carotid bruit, thyroid normal. LYMPH NODES: n o enlarged lymph nodes,spleen normal. SKIN: b ilateral tinea cruris. HEART: n o clicks, gallops, murmurs, or [...] a lert, oriented. Assessment: * Assessment: 1. T nori new - B35.6 (Primary) N otes :He was instructed on the use of terbinafine twice a day for 14 days. 2 . H yperlipidemia - E78.5 N otes :Comprehensive blood work including a fasting lipid profile will be done in the near future when he comes in again. His values have been stable. 3 . B PH (benign prostatic hypertrophy) - N40.0 N otes :He admits to nocturia once a night. We discussed lifestyle modifications I could reduce this. 4 . P soriasis - L40.9 N otes :He has a small patch of psoriasis on his left jenkins. In the past this was thought to be eczema but the surgical instrument repair specialist made the diagnosis. 5 . A DD (attention deficit disorder) - F98.8 N otes :He does not need medication for this problem at this time. 6 . G ERD (gastroesophageal reflux disease) - K21.9 N otes :He has occasional heartburn which is well controlled with liquid antacids and omeprazole. 7 . C lostridium difficile colitis - A04.72 N otes :He has had no further episodes of this infection since his last visit.. Plan: * Treatment: 2. B PH (benign prostatic hypertrophy) L AB: PROFILE, FASTING (COMPREHENSIVE METABOLIC) L AB: PSA, TOTAL L AB: CBC w DIFF L AB: LYME IGM & IGG RFLX WB L AB: Lipid Panel * Procedure Codes: * Follow Up: A s Scheduled (Reason: Annual Exam) * Images: * Sign off status: Completed true * Provider: Emiliano Koo MD Date: 12/09/2024 Generated for Jane morris/Kathe/Jessiitting on: 12/20/2024 11:58 AM EST History and Physical Notes * HPI (History of Present Illness) Category Sub-Category Detail Notes COVID-19 Screening Questions Have you had any new onset fever, chills, cough, congestion, sore throat, shortness of breath, muscle aches?: No Examination Category Sub-Category Detail Notes General Examination GENERAL APPEARANCE: pleasant , well nourished, well developed, in no acute distress, calm and relaxed: man HEAD: atraumatic, normocep halic EYES: eomi, [...] and lower extremities, sensory exam intact SKIN: bilateral tinea crur is PERIPHERAL PULSES: normal BREASTS: no masses palpable b ilaterally MUSCULOSKELETAL: extremities unremark able, no clubbing, cyanosis or edema LYMPH NODES: no enlarged lymph no jeffrey,spleen normal RECTAL EXAM: not examined PSYCH: alert, oriented ORAL CAVITY: normal, unremarkable
[2025-10-19 10:06] LABS: MANUAL DIFF FLAG NO
[2025-10-19 10:21] LABS: Hematocrit 39.9 % (42.0-52.0); Hemoglobin 13.5 g/dl (14.0-18.0); Imm Gran Abs Auto 0.02 X10*3/uL (0.00-0.03); Imm Gran Pct Auto 0.4 % (0.0-0.4); Lymphocytes Absolute Auto 1.4 X10*3/uL (1.2-4.9); Mean Corpuscular HGB Conc 33.8 g/dl (31.0-36.0); Mean Corpuscular Hemoglobin 30.3 pg (27.0-33.0); Mean Corpuscular Volume 89.7 fL (80.0-98.0); NRBC Abs Auto 0.000 X10*3/uL (0.0-0.012); NRBC Pct Auto 0.0 /100WBC (0.0-0.2); Platelet Count 239 X10*3/uL (160-400); Red Blood Count 4.45 X10*6/uL (4.60-5.80); White Blood Count 5.5 X10*3/uL (4.8-10.8)
[2025-10-19 10:45] LABS: Alanine Aminotransferase 20 U/L (0-40); Albumin Level 4.3 g/dL (3.5-5.0); Alkaline Phosphatase 53 U/L (39-117); Anion Gap 10 (12-20); Aspartate Amino Transferase 29 U/L (5-37); Blood Urea Nitrogen 13 mg/dL (9-16); Calcium 9.3 mg/dL (8.4-10.2); Carbon Dioxide 29 mmol/L (22-29); Chloride 104 mmol/L (96-108); Cholesterol 200 mg/dL (<200); Estimated Glomerular Filt Rate > 60; HDL Cholesterol 54 mg/dL (>40); Potassium 4.5 mmol/L (3.3-5.1); Sodium 138 mmol/L (135-145); Total Protein 7.0 g/dL (6.5-8.0); Triglycerides 71 mg/dL (<150)
[2025-10-19 11:07] LABS: Prostate Specific Antigen 1.52 ng/mL (<0.05-4.0)
--- OUTSIDE RECORDS SUMMARY | 2025-10-19 11:58 | XMS_ITS | Patient Health Record ---
[facility] Organization [facility] maikol [place] Address [address] [place] [address] Care Team Providers Care Light Fixture Servicer Name Role Phone Umberto Koo MD Primary Care Provider Campbell Wilks Unavailable [phone] Allergies No Known Allergies Reason For Referral [...] Insured Coverage Start Date Coverage End Date [facility] [address] [place] [address] [id number] Jeffrey Peoples Self - patient is the insured Medical (General) History Surgical History Surgery Date(Month/Year)
--- OUTSIDE RECORDS SUMMARY | 2025-10-19 11:59 | XMS_ITS | Patient Health Record ---
Author Organization Umberto Koo III, MD Address [address] [place] [address] Care Team Providers Care Content Management Consultant Name Role Phone Dr. Umberto Koo III Primary Care Provider Allergies Allergen (clinical drug ingredient) Drug/Non Drug Allergy documented on EMR Reaction Allergy Type Onset Date Status No Known Drug Allergy Unknown Drug Allergy Active Results Component Value Reference Range Notes Complete Blood Count Auto Di ff Reviewed date:02/20/2025 07:18:23 AM Interpretation: Performing Lab:[facility], [address] [place] [phone] Notes/Report: White Blood Count 5.1 4.8-10.8 X10*3/uL Red Blood Count 4.81 4.60-5.80 X10*6/uL Hemoglobin 14.8 14.0-18.0 g/dl Hematocrit 42.5 42.0-52.0 % Mean Corpuscular Volume 88.4 80.0-98.0 fL Mean Corpuscular Hemoglobin 30.8 27.0-33.0 pg Mean Corpuscular HGB Conc 34.8 31.0-36.0 g/dl Red Cell Distribution Width 12.3 11.0-16.0 % Platelet Count 280 160-400 X10*3/uL Mean Platelet Volume 10.1 9.4-12.4 fL Neutrophils Percent Auto 59.3 45-73 % Imm Gran Pct Auto 0.4 0.0-0.4 % Lymphocytes Percent Auto 26.9 20-40 % Monocytes Percent Auto 11.1 2-11 % Eosinophils Percent Auto 1.9 0-4 % Basophils Percent Auto 0.4 0-2 % NRBC Pct Auto 0.0 0.0-0.2 /100WBC Neutrophils Absolute Auto 3.0 2.0-8.3 x10*3/u L Imm Gran Abs Auto 0.02 0.00-0.03 X10*3/uL Lymphocytes Absolute Auto 1.4 1.2-4.9 X10*3/u L Monocytes Absolute Auto 0.6 0.1-1.2 X10*3/uL Eosinophils Absolute Auto 0.1 0.0-0.4 X10*3/u L Basophils Absolute Auto 0.0 0.0-0.2 X10*3/uL NRBC Abs Auto 0.000 0.0-0.012 X10*3/uL Comprehensive [place]. Panel Fa st Reviewed date:02/20/2025 07:18:23 AM Interpretation: Performing Lab:[address] [phone] Notes/Report: Sodium 141 135-145 mmol/L Potassium 4.7 3.3-5.1 mmol/L Chloride 106 96-108 mmol/L Carbon Dioxide 29 22-29 mmol/L Anion Gap 11 12-20 Blood Urea Nitrogen 10 9-16 mg/dL Creatinine 0.99 0.5-1.4 mg/dL Estimated Glomerular Filt Rate > 60 Chronic Kidney Disease: Estimated GFR < 60 mL/min/1.73m2 Severe Kidney Disease: Estimated GFR < 15 mL/min/1.73m2 Glucose Fasting 89 60-99 mg/dL Calcium 9.4 8.4-10.2 mg/dL Bilirubin Total 0.5 0.0-1.0 mg/dL Aspartate Amino Transferase 28 5-37 U/L Alanine Aminotransferase 26 0-40 U/L Total Protein 7.1 6.5-8.0 g/dL Albumin Level 4.0 3.5-5.0 g/dL Alkaline Phosphatase 59 39-117 U/L Lipid Panel Reviewed date:02/20/2025 07:18:23 AM Interpretation: Performing Lab:[facility], [address] [place] [phone] Notes/Report: Triglycerides 50 <150 mg/dL Desirable Triglyceride: less than 150 mg/dL Borderline High Triglyceride 150-199 mg/dL High Triglyceride: 200-499 mg/dL Very High Triglyceride: greater than or equal to 5OO mg/dL Cholesterol 182 <200 mg/dL Desirable Cholesterol: less than 200 mg/dL Borderline High Cholesterol: 200-239 mg/dL High Cholesterol: greater than 239 mg/dL LDL Cholesterol Calculated 116 <100 mg/dL Desirable LDL: less than 100 mg/dL Near Optimal/Above Optimal LDL: 110-129 mg/dL Borderline High LDL: 130-159 mg/dL High LDL: 160-189 mg/dL Very High LDL: greater than or equal to 190 mg/dL HDL Cholesterol 56 >40 mg/dL Desirable HDL: greater than 40 mg/dL Note: This HDL assay may give artificially low results in patients with liver disease. Complete Blood Count Auto Di ff (Not yet reviewed by provider) Interpretation: Performing Lab:[facility], [address] [place] [phone] Notes/Report: White Blood Count 5.5 4.8-10.8 X10*3/uL Red Blood Count 4.45 4.60-5.80 X10*6/uL Hemoglobin 13.5 14.0-18.0 g/dl Hematocrit 39.9 42.0-52.0 % Mean Corpuscular Volume 89.7 80.0-98.0 fL Mean Corpuscular Hemoglobin 30.3 27.0-33.0 pg Mean Corpuscular HGB Conc 33.8 31.0-36.0 g/dl Red Cell Distribution Width 12.4 11.0-16.0 % Platelet Count 239 160-400 X10*3/uL Mean Platelet Volume 9.8 9.4-12.4 fL Neutrophils Percent Auto 62.6 45-73 % Imm Gran Pct Auto 0.4 0.0-0.4 % Lymphocytes Percent Auto 25.3 20-40 % Monocytes Percent Auto 9.9 2-11 % Eosinophils Percent Auto 1.4 0-4 % Basophils Percent Auto 0.4 0-2 % NRBC Pct Auto 0.0 0.0-0.2 /100WBC Neutrophils Absolute Auto 3.5 2.0-8.3 x10*3/u L Imm Gran Abs Auto 0.02 0.00-0.03 X10*3/uL Lymphocytes Absolute Auto 1.4 1.2-4.9 X10*3/u L Monocytes Absolute Auto 0.6 0.1-1.2 X10*3/uL Eosinophils Absolute Auto 0.1 0.0-0.4 X10*3/u L Basophils Absolute Auto 0.0 0.0-0.2 X10*3/uL NRBC Abs Auto 0.000 0.0-0.012 X10*3/uL Comprehensive [place]. Panel Fa st (Not yet reviewed by provider) Interpretation: Performing Lab:[facility], [address] [place] [phone] Notes/Report: Sodium 138 135-145 mmol/L Potassium 4.5 3.3-5.1 mmol/L Chloride 104 96-108 mmol/L Carbon Dioxide 29 22-29 mmol/L Anion Gap 10 12-20 Blood Urea Nitrogen 13 9-16 mg/dL Creatinine 0.91 0.5-1.4 mg/dL Estimated Glomerular Filt Rate > 60 Chronic Kidney Disease: Estimated GFR < 60 mL/min/1.73m2 Severe Kidney Disease: Estimated GFR < 15 mL/min/1.73m2 Glucose Fasting 79 60-99 mg/dL Calcium 9.3 8.4-10.2 mg/dL Bilirubin Total 0.5 0.0-1.0 mg/dL Aspartate Amino Transferase 29 5-37 U/L Alanine Aminotransferase 20 0-40 U/L Total Protein 7.0 6.5-8.0 g/dL Albumin Level 4.3 3.5-5.0 g/dL Alkaline Phosphatase 53 39-117 U/L Lipid Panel (Not yet reviewe d by provider) Interpretation: Performing Lab:[facility], [address] [place] [phone] Notes/Report: Triglycerides 71 <150 mg/dL Desirable Triglyceride: less than 150 mg/dL Borderline High Triglyceride 150-199 mg/dL High Triglyceride: 200-499 mg/dL Very High Triglyceride: greater than or equal to 5OO mg/dL Cholesterol 200 <200 mg/dL Desirable Cholesterol: less than 200 mg/dL Borderline High Cholesterol: 200-239 mg/dL High Cholesterol: greater than 239 mg/dL LDL Cholesterol Calculated 132 <100 mg/dL Desirable LDL: less than 100 mg/dL Near Optimal/Above Optimal LDL: 110-129 mg/dL Borderline High LDL: 130-159 mg/dL High LDL: 160-189 mg/dL Very High LDL: greater than or equal to 190 mg/dL HDL Cholesterol 54 >40 mg/dL Desirable HDL: greater than 40 mg/dL Note: This HDL assay may give artificially low results in patients with liver disease. Prostate Specific Antigen (N ot yet reviewed by provider) Interpretation: Performing Lab:[facility], [address] [place] [phone] Notes/Report: Prostate Specific Antigen 1.52 <0.05-4.0 ng/mL PSA methodology: Butler Alinity i [...] M edicine Referred Provider [facility], [facility] Referred Provider Specialty Orthopedic S urgery General Notes Leticia Hollingsworth FIELD OPERATIONS MANAGER 10/29 03:59:03 PM >ref/demo/progress note faxed to [facility] pt contact and advised to call for [...] Problem Status W/U Status Risk Notes Problem 38909559 Hyperlipidemia (E78.5) Active confirmed Comprehensive blood work including a fasting lipid profile will be done in the near future when he comes in again. His values have been stable. Problem 79357719 Weight loss (R63.4) Active confirmed Since his last visit a year ago. He has lost 17 pounds. He says he was trying to lose weight. His body mass index is in the underweight range. A CT scan of the abdomen and pelvis has been ordered to evaluate the pain and weight loss. Problem 277222494 GERD (gastroesophagea l reflux disease) (K21.9) Active confirmed He has occasional heartburn which is well controlled with liquid antacids and omeprazole. Problem 811564547 Tinea cruris (B35.6) Active confirmed He was instructed on the use of terbinafine twice a day for 14 days. Problem 68050960 Other chronic pain (G89.29) Active confirmed Problem 984394622684874 Bursitis of right shoulder (M75.51) Active confirmed Problem Benign prostatic hypertrophy without outflow obstruction (820463371) BPH (benign prostatic hypertrophy) (N40.0) Active confirmed He admits to nocturia once a night. We discussed lifestyle modifications I could reduce this. Problem 6512191 Psoriasis (L40.9) Active confirmed He has a small patch of psoriasis on his left jenkins. In the past this was thought to be eczema but the nitro worker made the diagnosis. Problem 356442808 Inguinal hernia (K40.90) Active confirmed He was referred to a general surgeon in 2013 and the hernia has been repaired without recurrence. Problem 417443267 Non-cardiac chest pain (R07.89) Active confirmed He has had no further episodes of chest wall pain and is doing well. There is no pneumothorax. It is likely an intercostal nerve impingement or a transient pleurisy. There was no sign of pulmonary embolism. He will be observed. Problem 074525460 ADD (attention deficit disorder) (F98.8) Active confirmed He does not need medication for this problem at this time. Problem 873881444068943 Episodic migraine (G43.909) Active confirmed He will fill the prescription of sumatriptan and use that to see if it well relieve his migraine symptoms. He has nnot yett had the presccription filled. Problem 723180287 Clostridium difficile colitis (A04.72) Active confirmed He has had no further episodes of this infection since his last visit.. Vital Signs Heart Rate 63 /min 10/08/2025 Temperature 97.7 degrees Fahrenheit 10/08/2025 Blood pressure diastolic 68 mm Hg 10/08/2025 Height 69 in 10/08/2025 Blood pressure systolic 131 mm Hg 10/08/2025 Weight 150 lbs 10/08/2025 BMI 22.15 kg/m2 10/08/2025 Encounters Encounter Location Date Provider Diagnosis Umberto Koo III, MD [address] [place] [address] [place] [phone] 10/20/2024 Umberto Koo Hyperlipidemia E78.5 ; Chest pain, unspecified type R07.9 ; Immunization, tetanus-diphtheria Z23 ; Psoriasis L40.9 and ADD (attention deficit disorder) F98.8 Umberto Koo III, MD [address] [place] [address] [place] [phone] 02/23/2025 Umberto Koo Psoriasis L40.9 ; Hyperlipidemia E78.5 ; ADD (attention deficit disorder) F98.8 ; GERD (gastroesophageal reflux disease) K21.9 ; Inguinal hernia K40.90 and BPH (benign prostatic hypertrophy) N40.0 Umberto Koo III, MD [address] [place] [address] [place] [address] 10/08/2025 Umberto Koo Hyperlipidemia E78.5 ; Tinea cruris B35.6 ; BPH (benign prostatic hypertrophy) N40.0 ; Psoriasis L40.9 ; ADD (attention deficit disorder) F98.8 ; GERD (gastroesophageal reflux disease) K21.9 and Clostridium difficile colitis A04.72 Umberto Koo III, MD [address] [place] [address] DR [place], [place] [phone] 10/29/2024 Umberto Koo Assessments Encounter Date Diagnosis [...] as well as when he is sleeping. 02/23/2025 Hyperlipidemia (ICD-10 - E78.5) His body mass index is 21. He is no longer under weight. His total cholesterol is stable. No change was made in his regimen. Comprehensive blood work has been ordered, including a fasting lipid profile. 02/23/2025 Psoriasis (ICD-10 - L40.9) He has a small patch of psoriasis on his left jenkins. In the past this was thought to be eczema but the nitro worker made the diagnosis. 10/08/2025 Hyperlipidemia (ICD-10 - E78.5) Comprehensive blood work including a fasting lipid profile will be done in the near future when he comes in again. His values have been stable. 10/08/2025 Tinea cruris (ICD-10 - B35.6) He was instructed on the use of terbinafine twice a day for 14 days. 10/20/2024 Immunization, tetanus-diphtheria (ICD-10 - Z23) He was given a tetanus diphtheria vaccination today. He tolerated this without any reaction. 02/23/2025 ADD (attention deficit disorder) (ICD-10 - F98.8) He does not need medication for this problem at this time. 10/08/2025 BPH (benign prostati c hypertrophy) (ICD-10 - N40.0) He admits to nocturia once a night. We discussed lifestyle modifications I could reduce this. 10/20/2024 Psoriasis (ICD-10 - L40.9) He has a small patch of psoriasis on his left jenkins. In the past this was thought to be eczema but the nitro worker made the diagnosis. 02/23/2025 GERD (gastroesophageal reflux disease) (ICD-10 - K21.9) He has occasional heartburn which is well controlled with liquid antacids and omeprazole. 10/08/2025 Psoriasis (ICD-10 - L40.9) He has a small patch of psoriasis on his left jenkins. In the past this was thought to be eczema but the nitro worker made the diagnosis. 10/20/2024 ADD (attention deficit disorder) (ICD-10 - F98.8) He does not need medication for this problem at this time. 02/23/2025 Inguinal hernia (ICD-10 - K40.90) He was referred to a general surgeon in 2013 and the hernia has been repaired without recurrence. 10/08/2025 ADD (attention deficit disorder) (ICD-10 - F98.8) He does not need medication for this problem at this time. 02/23/2025 BPH (benign prostati c hypertrophy) (ICD-10 - N40.0) He rises from sleep once or twice a night depending on fluid intake. We reviewed lifestyle modifications to reduce this. 10/08/2025 GERD (gastroesophageal reflux disease) (ICD-10 - K21.9) He has occasional heartburn which is well controlled with liquid antacids and omeprazole. 10/08/2025 Clostridium difficil e colitis (ICD-10 - A04.72) He has had no further episodes of this infection since his last visit.. Plan Of Treatment Pending Test Test Name Order Date URINE DIP STICK 07/24/2021 PROFILE, FASTING (COMPREHENSIVE METABOLI C) 10/08/2025 PROFILE, FASTING (COMPREHENSIVE METABOLI C) 08/28/2023 PROFILE, FASTING (COMPREHENSIVE METABOLI C) 07/11/2022 PROFILE, FASTING (COMPREHENSIVE METABOLI C) 10/20/2024 PROFILE, FASTING (COMPREHENSIVE METABOLI C) 07/31/2023 PROFILE, FASTING (COMPREHENSIVE METABOLI C) 04/14/2018 PROFILE, FASTING (COMPREHENSIVE METABOLI C) 07/24/2021 PROFILE, FASTING (COMPREHENSIVE METABOLI C) 04/15/2024 PROFILE, FASTING (COMPREHENSIVE METABOLI C) 10/01/2017 PROFILE, RANDOM (COMPREHENSIVE METABOLIC ) 08/28/2022 PROFILE, RANDOM (COMPREHENSIVE METABOLIC ) 04/15/2019 LIPID PANEL 10/01/2017 LIPID PANEL 04/15/2019 LIPID PANEL 07/11/2022 LIPID PANEL 04/14/2018 FERRITIN 03/26/2017 PSA, TOTAL 10/01/2017 PSA, TOTAL 10/08/2025 PSA, TOTAL 08/28/2023 PSA, TOTAL 07/31/2023 PSA, TOTAL 04/15/2019 PSA, TOTAL 07/24/2021 PSA, TOTAL 04/15/2024 PSA, TOTAL 04/14/2018 PSA, TOTAL SCREEN 07/11/2022 CBC w DIFF 07/24/2021 CBC w DIFF 04/15/2024 CBC w DIFF 04/14/2018 CBC w DIFF 08/28/2022 CBC w DIFF 10/01/2017 CBC w DIFF 10/08/2025 CBC w DIFF 03/26/2017 CBC w DIFF 10/20/2024 CBC w DIFF 07/31/2023 CBC w DIFF 04/15/2019 CBC w DIFF 07/11/2022 SED RATE (ESR) 08/28/2022 CLOSTRIDIUM DIFF TOXIN A&B (C DIFF) 03/05 LYME DISEASE IgG/IgM WB 08/28/2023 XR CHEST 2 VIEW PA & LAT 08/06/2019 VITAMIN D 25-OH TOTAL 04/15/2019 LYME IGM & IGG RFLX WB 10/08/2025 CBC WITH AUTO DIFF 08/28/2023 SARS COV2 RNA RT PCR 07/01/2020 SARS COV2 RNA RT PCR 08/10/2020 Complete Blood Count Auto Diff Comprehensive [place]. Panel Fast Lipid Panel 08/28/2023 Lipid Panel 07/31/2023 Lipid Panel 04/15/2024 Lipid Panel 10/19/2025 Lipid Panel 10/08/2025 Lipid Panel 10/20/2024 Prostate Specific Antigen 10/19/2025 Stool Culture 03/27/2023 Lyme IgG/IgM w/reflex to WB 08/28/2023 Next Appt Details Provider Name:Umberto Koo , 10/26/2025 02:30:00 PM, [address] [place] [address] [facility] [address], Insurance Providers Payer Name Payer Address Payer Phone Subscriber Number Group Number Insured Name Patient Relationship to Insured Coverage Start Date Coverage End Date MEDICARE NGS [address] [place] [phone] [id number] Jeffrey Peoples Self - patient is the insured [address] [place] [place] [phone] [id number] Jeffrey Peoples Self - patient is the insured Medical (General) History Medical History History ICD Code non-cardiac chest pain eczema ADD atypical depression left lung pneumothorax left lung high sc [employer]ool Repaired left inguinal hernia 2014 Surgical History Surgery Date(Month/Year) Left inguinal herniorrhaphy, Dr. Grullon er 2013 colonoscopy, normal, [facility] [place] 2008 pneumothorax repaired surgically by Dr. Tee Ren Hospitalization History Reason Date(Month/Year) No history
--- OUTSIDE RECORDS SUMMARY | 2025-10-19 11:59 | XMS_ITS | Patient Health Record ---
Author Organization [facility] Address [address] [place] [address] Care Team Providers Care Dish Cloth Inspector Name Role Phone Umberto Koo MD Primary Care Provider Umberto Longoria Unavailable [phone] Allergies Allergen (clinical drug ingredient) Drug/Non Drug Allergy documented on EMR Reaction Allergy Type Onset Date Status rag weed,seasonal mo ld (uncoded) Unknown Allergy Active Reason For Referral No Information Medications Medication SIG (Take, Route, Fr equency, Duration) Notes Start Date End Date Status Melatonin 1 MG Capsule 1 capsule at bedt meron as needed Orally Once a day; Duration: 30 day(s) Active Ibuprofen 200 MG Tablet 1 tablet with fo od or milk as needed Orally Three times a day Active Immunizations Vaccine Route Administration Date Status Comme nts Influenza Unknown 08/04/2019 Administered Social History Tobacco Use: Social History Observation Description Date Details (start date - stop date) Never Smoker NA - NA Social History Drugs/Alcohol: Social Info Question Answer Notes Alcohol Screen Did you have a drink containing alcohol in the past year? Yes How often did you have a drink containing alcohol in the past year? 2 to 3 times a week (3 points) How many drinks did you have on a typical day when you were drinking in the past year? 1 or 2 drinks (0 point) How often did you have 6 or more drinks on one occasion in the past year? Never (0 point) Points 3 Interpretation Negative Tobacco Use: Social Info Question Answer Notes Tobacco Use/Smoking Patient is a nonsmoker Additional Details Category Social Info Options Details Miscellaneous: Marital status: Occupation: Artist--sculptur e/painting Section Notes: Nonsmoker; occasional alcoho l Problems Problem Type SNOMED Code ICD Code Onset Dates Problem Status W/U Status Risk Notes Problem Screening for malignant neoplasm of colon (535412230) Encounter for screening for malignant neoplasm of colon (Z12.11) Active confirmed Problem Preprocedural examination (508628652174875) Preprocedural examination (Z01.818) Active confirmed Plan Of Treatment Future Test Test Name Order Date COLONOSCOPY 10/22/2019 Insurance Providers Payer Name Payer Address Payer Phone Subscriber Number Group Number Insured Name Patient Relationship to Insured Coverage Start Date Coverage End Date [facility] [address] [facility] [place] [phone] [id number] AMANDA OSMAN Self - patient is the insured Medical (General) History Medical History History ICD Code Denies AR,DM,CVA,Lung disease,renal dise ase Neg. screening colonoscopy 11/2009 with Maribeth Morris Surgical History Surgery Date(Month/Year) Pneumothorax 1975 Left inguinal surgery 2011
[2025-10-20 07:13] LABS: Lyme Abs Screen <0.90 index
== END 2025-10-19 09:54 | disposition home or self-care (01) ==
LOC: HO.LAB 09:53
PROVIDERS: PCP Internal Medicine Medical Oncology; Visit Provider Internal Medicine Medical Oncology
DX: Z12.5 Encounter for screening for malignant neoplasm of prostate (principal); Z01.84 Encounter for antibody response examination; N40.0 Benign prostatic hyperplasia without lower urinary tract symptoms; E78.5 Hyperlipidemia, unspecified; D64.9 Anemia, unspecified; W57.XXXA Bitten or stung by nonvenomous insect and other nonvenomous arthropods, initial encounter
CPT/HCPCS: 36415; 80053; 80061; 84153; 85025; 86617; 86618

== ENCOUNTER 2025-10-28 09:18 | Emergency (ER) | payer MEDICARE, OTHER, SELFPAY ==
--- OUTSIDE RECORDS SUMMARY | 2024-08-11 08:58 | XMS_ITS ---
Author Organization Umberto Koo III, MD Address [address] [place] [address] [place] [address] Care Team Providers Care Envelope Folding Machine Operator Name Role Phone Dr. Umberto Koo III Primary Care Provider [phone] REASON FOR VISIT Message Social History Sex Assigned At : Social History Observation Description Sex Assigned At Male Encounters Encounter Location Date Provider Diagnosis Umberto Koo III, MD [address] [place] [address] [place] [address] 08/11/2024 Umberto Koo Plan Of Treatment Next Appt Details Provider Name:Umberto Koo , 01/24/2026 10:00:00 AM, [address] [place] [address] [place], [address], Provider Name:Umberto Koo , 10/31/2026 02:30:00 PM, [address] [place] [address] [place], [address], Progress Notes * Jeffrey OSMANDOB:[birth year] (68 yo M)Acc No.[id number]:08/11/2024 Patient: Harish WALTERJeffrey DELUCA :1955 A ge:68 Y S ex:Male Address:[address] [place] [phone] * true * Date: Generated for Printi ng/Faxing/eTransmitting on: 12/29/2024 09:50 AM EST
--- OUTSIDE RECORDS SUMMARY | 2024-08-12 00:30 | XMS_ITS ---
Author Organization Umberto Koo III, MD Address [address] [place] [address] Care Team Providers Care Delivery Room Clerk Name Role Phone Dr. Umberto Koo III Primary Care Provider Allergies Allergen (clinical drug ingredient) Drug/Non Drug [...] Date Provider Diagnosis Umberto Koo III, MD [address] [place] [address] [address] [place] [address] 08/12/2024 Umberto Koo Plan Of Treatment Medication Medication Name Sig Start Date Stop Date Notes SUMAtriptan Succinate 50 MG 1 tablet at least 2 hours between doses as needed Orally Twice a day 10/04/2023 Next Appt Details Provider Name:Umberto Koo , 01/24/2026 10:00:00 AM, [address] [facility], [address], Provider Name:Umberto Koo , 10/31/2026 02:30:00 PM, [address] [facility] [place] [address], [place], [address], Progress Notes * Jeffrey OSMANDOB:[birth year] (69 yo M)Acc No.[id number]:08/12/2024 Progress Notes Patient: Jeffrey FIGUEROA Provider: Emiliano Koo MD :1955 A ge:68 Y S ex:Male Date:08/12/2024 Address:[address] [place] [address], [id number] Subjective: * Chief Complaints: * 1 . [...] by Dr. Tee Ren , colonoscopy, normal, [facility] [place]. * Hospitalization/Major Diagno stic Procedure: D [...] ggressive non-smoker H e was born in [place], [place]. * Medications: T aking SUMAtriptan Succinate [...] Provider: Emiliano Koo MD Date: Generated for Printi ng/Lizbethg/eTransmitting on: 12/29/2024 09:49 AM EST History and Physical Notes * HPI (History of Present Illness) Category Sub-Category Detail Notes COVID-19 Screening Questions Have you had any new onset fever, chills, cough, congestion, sore throat, shortness of breath, muscle aches?: No Have you been exposed to the virus withi n the last 10 days?: No Have you travelled internationally in [facility] last 10 days?: No Have you been [...]
--- OUTSIDE RECORDS SUMMARY | 2024-10-20 11:00 | XMS_ITS ---
Author Organization Umberto Koo III, MD Address [address] [place] [address] Care Team Providers Care Forward Air Controller/Air Officer Name Role Phone Dr. Umberto Koo III Primary Care Provider [phone] Allergies Allergen (clinical drug ingredient) Drug/Non Drug Allergy documented on EMR Reaction Allergy Type Onset Date Status No Known Drug Allergy Unknown Drug Allergy Active REASON FOR VISIT Annual Exam Immunizations Vaccine Route Administration Date Status Comme nts Tetanus and Diphtheria Toxoids Adsorbed IM Intramuscular 10/20/2024 Administered Social History Tobacco Use: Social History Observation Description Date Details (start date - stop date) Never Smoker NA - NA Sex Assigned At : Social History Observation Description Sex Assigned At Male Tobacco Use/Smoking Question Answer Notes Patient is a nonsmoker Additional Findings: Tobacco Non-User Aggressive non-smoker Tobacco Control (Standard) Question Answer Notes Tobacco use: Nonsmoker Additional Findings: Tobacco non-user Aggressive nonsmoker AUDIT-C (Standard) Question Answer Notes Did you have a drink contain ing alcohol in the past year? Yes How often did you have six o r more drinks on one occasion in the past year? 2 to 3 times per week (3 points) How many drinks did you have on a typical day when you were drinking in the past year? 1 or 2 drinks (0 point) How often did you have a dri nk containing alcohol in the past year? Never (0 point) Points 3 Interpretation Negative Vital Signs Temperature 97.4 degrees Fahrenheit 10/20/20 24 Blood pressure systolic 126 mm Hg 10/20/20 24 Blood pressure diastolic 80 mm Hg 024 Heart Rate 97 /min 10/20/2024 Height 69 in 10/20/2024 Weight 153, 143.0 lbs 10/20/2024 BMI 22.59 kg/m2 10/20/2024 Encounters Encounter Location Date Provider Diagnosis Umberto Koo III, MD [address] [place] [address] [place] [address] 10/20/2024 Umberto Koo Hyperlipidemia E78.5 ; Chest pain, unspecified type R07.9 ; Immunization, tetanus-diphtheria Z23 ; Psoriasis L40.9 and ADD (attention deficit disorder) F98.8 Assessments Encounter Date Diagnosis (ICD Code) Assessment Notes Treat ment Notes Treatment Clinical Notes 10/20/2024 Hyperlipidemia (ICD-10 - E78.5) His body mass index is 20. He is no longer under weight. His total cholesterol is 219. No change was made in his regimen. Comprehensive blood work has been ordered, including a fasting lipid profile. 10/20/2024 Chest pain, unspecified type (ICD-10 - R07.9) He reports no recent atypical chest pain. He has been comfortable during the day as well as when he is sleeping. 10/20/2024 Immunization, tetanus-diphtheria (ICD-10 - Z23) He was given a tetanus diphtheria vaccination today. He tolerated this without any reaction. 10/20/2024 Psoriasis (ICD-10 - L40.9) He has a small patch of psoriasis on his left jenkins. In the past this was thought to be eczema but the customer care coordinator made the diagnosis. 10/20/2024 ADD (attention deficit disorder) (ICD-10 - F98.8) He does not need medication for this problem at this time. Plan Of Treatment Pending Test Test Name Order Date PROFILE, FASTING (COMPREHENSIVE METABOLI C) 10/20/2024 CBC w DIFF 10/20/2024 Lipid Panel 10/20/2024 Next Appt Details Follow Up: February,February 2025 , Reason: OV review labs, To discuss colonoscopy results and check cholesterol levels Provider Name:Umberto Koo , 01/24/2026 10:00:00 AM, [address] [place] [address] [place] [place], [place], [address], Provider Name:Umberto Koo , 10/31/2026 02:30:00 PM, [address] [place] [address] BAR[address] [place]IVER[place], [place], [phone], Progress Notes * Jeffrey OSMANDOB:[birth year] (68 yo M)Acc No.[id number]:10/20/2024 Progress Notes Patient: Jeffrey FIGUEROA Provider: Emiliano Koo MD :1955 A ge:68 Y S ex:Male Date:10/20/2024 Address:[address] [place], [place] [id number] Subjective: * Chief Complaints: * A nnual Exam * HPI: D epression Screening: PHQ-9 L ittle interest or pleasure in doing things?Not at all F eeling down, depressed, or hopeless S everal T rouble falling or staying asleep, or sleeping too much N early every day F eeling tired or having little energy S everal P oor appetite or overeating S ever F eeling bad about yourself or that you are a failure, or have let yourself or your family down S ever T rouble concentrating on things, such as reading the newspaper or watching television S ever M oving or speaking so slowly that other people could have noticed; or the opposite, being so fidgety or restless that you have been moving around a lot more than usual N ot at all T houghts that you would be better off or of hurting yourself in some way N ot at all T otal Score 8 I nterpretation M ild Depression C OVID-19 Screening: Questions H ave you had any new onset fever, chills, cough, congestion, sore throat, shortness of breath, muscle aches? N o S MARY LOU Questions: SDOH Questions I n the past year have you been worried about losing your housing? N o I n the past year have you or any family members you live with been unable to get any of the following when it was really needed? Check all that apply: N one * : The patient, a 68-year-old male, presented for his annual exam. He reported that his psoriasis is stable with less frequent outbreaks. He had blood work done about a week prior to the visit and had some concerns about his cholesterol levels, which have been gradually increasing. He denied experiencing any chest pain, attributing previous sensations to nerves or potentially scar tissue from a past pneumothorax operation. The patient reported waking up to urinate about twice a night on average. He also mentioned that he has been working out more and trying to gain a little weight. He has been considering adding protein powder and creatine to his diet. He also reported a persistent issue with his knee, which has been bothering him daily. He is due for his next screening colonoscopy in January of 2025. We have referred him to gastroenterology to make sure this occurs.Comprehensive blood work is not available but has been ordered prior to his next visit. * ROS: G eneral/Constitutional: pain o nly normal aches and pains. C hills d enies.?Fatigue a dmits. F ever d enies. E NT: Decreased hearing d enies. R espiratory: Denies C hest pain. C ough d enies. ? C ardiovascular: Chest pain with exertion d enies. D yspnea on exertion?denies. S hortness of breath d enies. G astrointestinal: Constipation o ccasional. D ecreased appetite d enies. D iarrhea d enies. H eartburn o ccasional. N ausea d enies. R ectal bleeding d enies. V omiting d enies. H ematology: bruising d enies. p etechiae d enies. S wollen glands n one have been noted. G enitourinary: Frequent urination t wice a night. M usculoskeletal: Muscle aches d enies. P ainful joints d enies. S ciatica d enies. W eakness d enies. S kin: Itching d enies. R yaz d enies. S kin lesion(s)?denies. N eurologic: Difficulty speaking d enies. D izziness d enies.?Headache d enies. L ow back pain d enies. P sychiatric: Depressed mood d enies. * Medical History: * Surgical History: p neumothorax repaired surgically by Dr. Tee Ren colonoscopy, normal, [facility] 2009No history * Hospitalization/Major Diagno stic Procedure: N o history * Family History: F ather: 84 yrs, kidney failure, adult onset diabetes mellitus, cancer, diagnosed with Cancer, DM. M other: 99 yrs. 2 brother(s) , 1 sister(s) - healthy. 1 son(s) , 1 daughter(s) - healthy. . * Social History: T obacco Use: T obacco Use/Smoking P atient is a n onsmoker A dditional Findings: Tobacco Non-User A ggressive non-smoker Tobacco Control (Standard) T obacco use: N onsmoker A dditional Findings: Tobacco non-user A ggressive nonsmoker D rugs/Alcohol: D rugs H ave you used drugs other than those for medical reasons in the past 12 months? Y es M arijuana? Y es D rug/Alcohol: A ANTWON-C (Standard) D id you have a drink containing alcohol in the past year? Y es H ow often did you have six or more drinks on one occasion in the past year? 2 to 3 times per week (3 points) H ow many drinks did you have on a typical day when you were drinking in the past year? 1 or 2 drinks (0 point) H ow often did you have a drink containing alcohol in the past year? N ever (0 point) P oints 3 I nterpretation N egative H e was born in [place], [place]. {'Exercise': 'Working out more, trying to gain weight', 'Diet': 'Considering adding protein powder and creatine'}. * Medications: D iscontinuedSUMAtriptan Succinate 50 MG Tablet 1 tablet at least 2 hours between doses as needed Orally Twice a day Medication List reviewed and reconciled with the patientDiscontinued SUMAtriptan Succinate 50 MG Tablet 1 tablet at least 2 hours between doses as needed Orally Twice a day Medication List reviewed and reconciled with the patient * Allergies: N o Known Drug Allergyno[Allergies Verified] Objective: * Vitals: H t: 69, Wt: 153,143.0, BMI:22.59, BP:126/80, HR:97, Temp:97.4, Wt-k.4. * P ast Orders: Lab:Prostate Specific Antige n * Collection Date 10/13/2024 09/07/202307/1707/17/2022 Collection Time 09:14 AM 08:49 AM 09:45 AM Order Date 10/13/2024 09/07/2023 07/17/2022 Prostate Specific Antigen 1.34 (Ref Range: <0.05-4.0 ng/mL) 1.30 (Ref Range: <0.05-4.0 ng/mL) 0.78 (Ref Range: <0.05-4.0 ng/mL) * Lab:Lipid Panel * Collection Date 10/13/2024 09/07/2023 07/17/2022 Collection Time 09:14 AM 08:49 AM 09:45 AM Order Date 10/13/2024 09/07/2023 07/17/2022 Triglycerides 54 (Ref Range: <150 mg/dL) 54 (Ref Range: <150 mg/dL) 48 (Ref Range: mg/dL) Cholesterol 219 H (Ref Range: <200 mg/dL) 197 (Ref Range: <200 mg/dL) 185 (Ref Range: mg/dL) LDL Cholesterol Calculated 148 H (Ref Range: <100 mg/dL) 133 H (Ref Range: <100 mg/dL) 116 (Ref Range: mg/dl) HDL Cholesterol 61 (Ref Range: >40 mg/dL) 54 (Ref Range: >40 mg/dL) 60 (Ref Range: mg/dL) * Lab:Comprehensive [place]. Pane l Fast * Collection Date 10/13/2024 09/07/2023 07/28/2021 Collection Time 09:14 AM 08:49 AM 09:10 AM Order Date 10/13/2024 09/07/2023 07/28/2021 Sodium 139 (Ref Range: 135-145 mmol/L) 139 (Ref Range: 135-145 mmol/L) 141 (Ref Range: 135-145 mmol/L) Bilirubin Total 0.4 (Ref Range: 0.0-1.0 mg/dL) 0.5 (Ref Range: 0.0-1.0 mg/dL) 0.4 (Ref Range: 0.0-1.0 mg/dL) Aspartate Amino Transferase 26 (Ref Range: 5-37 U/L) 22 (Ref Range: 5-37 U/L) 17 (Ref Range: 5-37 U/L) Alanine Aminotransferase 21 (Ref Range: 0-40 U/L) 19 (Ref Range: 0-40 U/L) 18 (Ref Range: 0-40 U/L) Total Protein 7.9 (Ref Range: 6.5-8.0 g/dL) 7.5 (Ref Range: 6.5-8.0 g/dL) 7.3 (Ref Range: 6.5-8.0 g/dL) Albumin Level 4.3 (Ref Range: 3.5-5.0 g/dL) 4.2 (Ref Range: 3.5-5.0 g/dL) 4.2 (Ref Range: 3.5-5.0 g/dL) Alkaline Phosphatase 56 (Ref Range: 39-117 U/L) 55 (Ref Range: 39-117 U/L) 57 (Ref Range: 39-117 U/L) Potassium 4.9 (Ref Range: 3.3-5.1 mmol/L) 4.9 (Ref Range: 3.3-5.1 mmol/L) 5.6 H (Ref Range: 3.3-5.1 mmol/L) Chloride 102 (Ref Range: 96-108 mmol/L) 103 (Ref Range: 96-108 mmol/L) 106 (Ref Range: 96-108 mmol/L) Carbon Dioxide 29 (Ref Range: 22-29 mmol/L) 30 H (Ref Range: 22-29 mmol/L) 30 H (Ref Range: 22-29 mmol/L) Anion Gap 13 (Ref Range: 12-20) 11 L (Ref Range: 12-20) 11 L (Ref Range: 12-20) Blood Urea Nitrogen 12 (Ref Range: 9-16 mg/dL) 12 (Ref Range: 9-16 mg/dL) 13 (Ref Range: 9-16 mg/dL) Creatinine 0.93 (Ref Range: 0.5-1.4 mg/dL) 0.91 (Ref Range: 0.5-1.4 mg/dL) 0.85 (Ref Range: 0.5-1.4 mg/dL) Estimated Glomerular Filt Rate > 60 > 60 > 60 Glucose Fasting 94 (Ref Range: 60-99 mg/dL) 93 (Ref Range: 60-99 mg/dL) 97 (Ref Range: 60-99 mg/dL) Calcium 9.5 (Ref Range: 8.4-10.2 mg/dL) 9.5 (Ref Range: 8.4-10.2 mg/dL) 9.6 (Ref Range: 8.4-10.2 mg/dL) * Lab:Complete Blood Count Aut o Diff * Collection Date 10/13/2024 09/07/2023 08/28/2022 Collection Time 09:14 AM 08:49 AM 12:22 PM Order Date 10/13/2024 09/07/2023 08/28/2022 White Blood Count 6.7 (Ref Range: 4.8-10.8 X10*3/uL) 5.8 (Ref Range: 4.8-10.8 X10*3/uL) 13.2 H (Ref Range: 4.8-10.8 X10*3/uL) Red Blood Count 5.07 (Ref Range: 4.60-5.80 X10*6/uL) 5.15 (Ref Range: 4.60-5.80 X10*6/uL) 4.70 (Ref Range: 4.60-5.80 X10*6/uL) Hemoglobin 15.3 (Ref Range: 14.0-18.0 g/dl) 15.5 (Ref Range: 14.0-18.0 g/dl) 14.2 (Ref Range: 14.0-18.0 g/dl) Hematocrit 45.6 (Ref Range: 42.0-52.0 %) 46.6 (Ref Range: 42.0-52.0 %) 41.3 L (Ref Range: 42.0-52.0 %) Mean Corpuscular Volume 89.9 (Ref Range: 80.0-98.0 fL) 90.5 (Ref Range: 80.0-98.0 fL) 87.9 (Ref Range: 80.0-98.0 fL) Mean Corpuscular Hemoglobin 30.2 (Ref Range: 27.0-33.0 pg) 30.1 (Ref Range: 27.0-33.0 pg) 30.2 (Ref Range: 27.0-33.0 pg) Mean Corpuscular HGB Conc 33.6 (Ref Range: 31.0-36.0 g/dl) 33.3 (Ref Range: 31.0-36.0 g/dl) 34.4 (Ref Range: 31.0-36.0 g/dl) Red Cell Distribution Width 12.6 (Ref Range: 11.0-16.0 %) 12.3 (Ref Range: 11.0-16.0 %) 12.8 (Ref Range: 11.0-16.0 %) Platelet Count 294 (Ref Range: 160-400 X10*3/uL) 297 (Ref Range: 160-400 X10*3/uL) 275 (Ref Range: 160-400 X10*3/uL) Mean Platelet Volume 10.2 (Ref Range: 9.4-12.4 fL) 10.5 (Ref Range: 9.4-12.4 fL) 9.8 (Ref Range: 9.4-12.4 fL) Neutrophils Percent Auto 58.3 (Ref Range: 45-73 %) 52.0 (Ref Range: 45-73 %) 82.0 H (Ref Range: 45-73 %) Imm Gran Pct Auto 0.1 (Ref Range: 0.0-0.4 %) 0.2 (Ref Range: 0.0-0.4 %) 0.5 H (Ref Range: 0.0-0.4 %) Lymphocytes Percent Auto 28.6 (Ref Range: 20-40 %) 35.6 (Ref Range: 20-40 %) 10.2 L (Ref Range: 20-40 %) Monocytes Percent Auto 10.8 (Ref Range: 2-11 %) 9.8 (Ref Range: 2-11 %) 6.7 (Ref Range: 2-11 %) Eosinophils Percent Auto 1.9 (Ref Range: 0-4 %) 2.2 (Ref Range: 0-4 %) 0.4 (Ref Range: 0-4 %) Basophils Percent Auto 0.3 (Ref Range: 0-2 %) 0.2 (Ref Range: 0-2 %) 0.2 (Ref Range: 0-2 %) NRBC Pct Auto 0.0 (Ref Range: 0.0-0.2 /100WBC) 0.0 (Ref Range: 0.0-0.2 /100WBC) 0.0 (Ref Range: 0.0-0.2 /100WBC) Neutrophils Absolute Auto 3.9 (Ref Range: 2.0-8.3 x10*3/uL) 3.0 (Ref Range: 2.0-8.3 x10*3/uL) 10.8 H (Ref Range: 2.0-8.3 x10*3/uL) Imm Gran Abs Auto 0.01 (Ref Range: 0.00-0.03 X10*3/uL) 0.01 (Ref Range: 0.00-0.03 X10*3/uL) 0.06 H (Ref Range: 0.00-0.03 X10*3/uL) Lymphocytes Absolute Auto 1.9 (Ref Range: 1.2-4.9 X10*3/uL) 2.1 (Ref Range: 1.2-4.9 X10*3/uL) 1.4 (Ref Range: 1.2-4.9 X10*3/uL) Monocytes Absolute Auto 0.7 (Ref Range: 0.1-1.2 X10*3/uL) 0.6 (Ref Range: 0.1-1.2 X10*3/uL) 0.9 (Ref Range: 0.1-1.2 X10*3/uL) Eosinophils Absolute Auto 0.1 (Ref Range: 0.0-0.4 X10*3/uL) 0.1 (Ref Range: 0.0-0.4 X10*3/uL) 0.1 (Ref Range: 0.0-0.4 X10*3/uL) Basophils Absolute Auto 0.0 (Ref Range: 0.0-0.2 X10*3/uL) 0.0 (Ref Range: 0.0-0.2 X10*3/uL) 0.0 (Ref Range: 0.0-0.2 X10*3/uL) NRBC Abs Auto 0.000 (Ref Range: 0.0-0.012 X10*3/uL) 0.000 (Ref Range: 0.0-0.012 X10*3/uL) 0.000 (Ref Range: 0.0-0.012 X10*3/uL) * Examination: G eneral Examination: GENERAL APPEARANCE: p leasant, well nourished, well developed, in no acute distress, calm and relaxed, man. HEAD: a traumatic, normocephalic. EYES: e starr, [...] ascites, no organomegaly, no mass. RECTAL EXAM: D referred to upcoming colonoscopy in January 2025. MUSCULOSKELETAL: e xtremities unremarkable, no clubbing, cyanosis or edema. PERIPHERAL PULSES: n ormal. NEUROLOGIC: a lert and oriented, cranial nerves 2-12 grossly intact, deep tendon reflexes 2+ symmetrical, motor strength normal upper and lower extremities, sensory exam intact. PSYCH: a lert, oriented. - : { 'Heart':'Regular rhythm without premature heartbeats, heart rate normal, no murmur or abnormalities in valves', 'Blood Pressure': 'Slightly high', 'Weight': 'Within healthy range', 'Knee': 'Persistent issue, causing daily discomfort'}. Assessment: * Assessment: 1. H yperlipidemia - E78.5 (Primary) N otes :His body mass index is 20. He is no longer under weight. His total cholesterol is 219. No change was made in his regimen. Comprehensive blood work has been ordered, including a fasting lipid profile. 2 . C hest pain, unspecified type - R07.9 N otes :He reports no recent atypical chest pain. He has been comfortable during the day as well as when he is sleeping. 3 . I mmunization, tetanus-diphtheria - Z23 N otes :He was given a tetanus diphtheria vaccination today. He tolerated this without any reaction. 4 . P soriasis - L40.9 N otes :He has a small patch of psoriasis on his left jenkins. In the past this was thought to be eczema but the customer care coordinator made the diagnosis. 5 . A DD (attention deficit disorder) - F98.8 N otes :He does not need medication for this problem at this time. Plan: * Treatment: 2. C hest pain, unspecified type L AB: PROFILE, FASTING (COMPREHENSIVE METABOLIC) L AB: CBC w DIFF L AB: Lipid Panel * Immunizations: Tetanus and Diphtheria Toxoids Adsorbed : 0.5 mL (Dose No:1) (Route: Intramuscular) given by Umberto Koo MD on Left Arm (Immunization, tetanus-diphtheria) ???Immunization record has been reviewed and updated. * Procedure Codes: 9 0714 Td (adult)23598 TD VACCINE NO PRSRV >/= 7 IM * Follow Up: A agnesl, February 2025 (Reason: OV review labs, To discuss colonoscopy results and check cholesterol levels) * Images: * Sign off status: Completed true * Provider: Emiliano Koo MD Date: 1 12/21/2023 Generated for Jane morris/Kahte/eTransmitting on: 12/29/2024 09:49 AM EST History and Physical Notes * HPI (History of Present Illness) Category Sub-Category Detail Notes Depression Screening PHQ-9 Little inte rest or pleasure in doing things: Not at all Feeling down, depressed, or hopeless: Se veral days Trouble falling or staying asleep, or sl eeping too much: Nearly every day Feeling tired or having little energy: S everal days Poor appetite or overeating: Several day s Feeling bad about yourself o r that you are a failure, or have let yourself or your family down: Several days Trouble concentrating on thi ngs, such as reading the newspaper or watching television: Several days Moving or speaking so slowly that other people could have noticed; or the opposite, being so fidgety or restless that you have been moving around a lot more than usual: Not at all Thoughts that you would be b anjali off or of hurting yourself in some way: Not at all Total Score: 8 Interpretation: Mild Depression COVID-19 Screening Questions Have you had any new onset fever, chills, cough, congestion, sore throat, shortness of breath, muscle aches?: No SDOH Questions SDOH Questions In the past year have you been worried about losing your housing?: No In the past year have you or any family members you live with been unable to get any of the following when it was really needed? Check all that apply:: None Examination Category Sub-Category Detail Notes General Examination GENERAL APPEARANCE: pleasant , well nourished, well developed, in no acute distress, calm and relaxed, man HEAD: atraumatic, normocep halic EYES: eomi, [...] enlarged lymph no jeffrey,spleen normal RECTAL EXAM: D referred to tiffanie morris colonoscopy in January 2025 PSYCH: alert, oriented ORAL CAVITY: normal, unremarkable
--- OUTSIDE RECORDS SUMMARY | 2024-10-29 10:54 | XMS_ITS ---
Author Organization Umberto Koo III, MD Address [address] [address] Care Team Providers Care Box Spring Maker Name Role Phone Dr. Umberto Koo III Primary Care Provider Reason For Referral Reason right knee pain Ev aluate and treat Diagnosis 1 Pain in right knee ( M25.561) Diagnosis 2 Other chronic pain ( G89.29) Referral Organization Umberto Koo III, MD Referring Provider First Name Umberto Referring Provider Last Name Hanane Referring Provider Speciality Internal M edicine Referred Provider [place] Referred Provider Specialty Orthopedic S urgery General Notes Leticia Hollingsworth CMA 10/29 03:59:03 PM >ref/demo/progress note faxed to [facility] pt contact and advised to call for appt Referral Priority Routine Social History Sex Assigned At : Social History Observation Description Sex Assigned At Male Encounters Encounter Location Date Provider Diagnosis Umberto Koo III, MD [address] [place] [address] [place] [address] 10/29/2024 Umberto Koo Plan Of Treatment Referrals Referral Date Details 10/29/2024 10/29/2024, right kn ee pain Evaluate and treat, [facility]) [place] Next Appt Details Provider Name:Umberto Koo , 01/24/2026 10:00:00 AM, [address] [place] [address] [place], [address], Provider Name:Umberto Koo , 10/31/2026 02:30:00 PM, [address] [place] [address] [place] [place], [place], [address], Progress Notes * Jeffrey OSMANDOB:[birth year] (68 yo M)Acc No.[id number]:10/29/2024 Patient: Jeffrey FIGUEROA :1955 A ge:68 Y S ex:Male Address:[address] [place] [id number] Subjective: * Chief Complaints: * * Medical History: * Surgical History: * Hospitalization/Major Diagno stic Procedure: * Medications: Objective: * Vitals: * Physical Examination: Assessment: Plan: * Treatment: * Procedure Codes: * true * Date: Generated for Jane morris/Kathe/eTransmitting on: 12/29/2024 09:49 AM EST Consultation Request Notes Referral Date Referring Provider Referred Provider Alvaro rangel 10/29/2024 Umberto Koo [facility] right knee pain Evaluate and treat
--- OUTSIDE RECORDS SUMMARY | 2025-02-23 10:30 | XMS_ITS ---
Author Organization Umberto Koo III, MD Address [address] [place] [address] Care Team Providers Care Guest Service Representative Name Role Phone Dr. Umberto Koo III [...] Date Provider Diagnosis Umberto Koo III, MD [address] [place] [address] [place] [address] 02/23/2025 Umberto Koo Psoriasis L40.9 ; Hyperlipidemia [...] was thought to be eczema but the powder mixer made the diagnosis. 02/23/2025 Hyperlipidemia (ICD-10 - [...] 8 Months, Reason: Annual Exam Provider Name:Umberto Koo , 01/24/2026 10:00:00 AM, [address] [place] [address] BAR[place]IVER[place], [place], [address], Provider Name:Umberto Koo , 10/31/2026 02:30:00 PM, [address] [place] [address] BARI RIVERA, [place], [phone], Progress Notes * Jeffrey OSMANDOB:[birth year] (69 yo M)Acc No.[id number]:02/23/2025 Progress Notes Patient: Jeffrey FIGUEROA Provider: Emiliano Koo MD :1955 A ge:69 Y S ex:Male Date:02/23/2025 Address:[address] [place], [place] [id number] Subjective: * Chief Complaints: * P soriasisHyperlipidemiaAttention [...] surgically by Dr. Tee Ren colonoscopy, [place], [facility] [place] her[place]iorrh[place], Dr. Izquierdo 2013 * Hospitalization/Major Diagno stic Procedure: N [...] Findings: Tobacco non-user A ggressive nonsmoker Delia dos santos was born in [place], [place]. {'Exercise': 'Working out more, trying to [...] 54 (Ref Range: >40 mg/dL) * Lab:[facility] [place]. Pane l Fast * Collection Date 02/17/2025 [...] was thought to be eczema but the powder mixer made the diagnosis. 2 . H yperlipidemia [...] MD Date: 0 02/23/2025 Generated for Jane morris/Kathe/eTransmitting on: 1 12/29/2024 09:50 AM EST History and Physical Notes * [...]
--- OUTSIDE RECORDS SUMMARY | 2025-10-08 09:15 | XMS_ITS ---
Author Organization Umberto Koo III, MD Address [address] [address] Care Team Providers Care Gas Line Servicer Name Role Phone Dr. Umberto Koo III [...] Problem Status W/U Status Risk Notes Problem [id number] Tinea cruris (B35.6) Active confirmed He was [...] Date Provider Diagnosis Umberto Koo III, MD [address] [place] [address] [place] [address] 10/08/2025 Umberto Koo Hyperlipidemia E78.5 ; Tinea [...] was thought to be eczema but the environmental safety specialist made the diagnosis. 10/08/2025 ADD (attention [...] son: Annual Exam Provider Name:Umberto Koo , 01/24/2026 10:00:00 AM, [address] [place], [place], [address], Provider Name:Umberto Koo , 10/31/2026 02:30:00 PM, [address] [place] [address] [address], [place], [address], Progress Notes * Jeffrey OSMANDOB:[birth year] (69 yo M)Acc No.[id number]:10/08/2025 Progress Notes Patient: Jeffrey FIGUEROA Provider: Emiliano Koo MD :1955 A ge:69 Y S ex:Male Date:10/08/2025 Address:[address] [place], [place] [id number] Subjective: * Chief Complaints: * B ilateral [...] surgically by Dr. Tee Ren colonoscopy, normal, [facility] [place] 2009Left inguinal herniorrhaphy, [...] ggressive nonsmoker H e was born in [place], [place]. {'Exercise': 'Working out more, trying to [...] lert, oriented. Assessment: * Assessment: 1. T inea cruris - B35.6 (Primary) N otes :He was [...] was thought to be eczema but the environmental safety specialist made the diagnosis. 5 . A [...] Date: 12/09/2024 Generated for Jane morris/Kathe/Jessiitting on: 12/29/2024 09:49 AM EST History and [...]
--- OUTSIDE RECORDS SUMMARY | 2025-10-26 09:30 | XMS_ITS ---
Author Organization Umberto Koo III, MD Address [address] [place] [address] Care Team Providers Care Proposition Player Name Role Phone Dr. Umberto Koo III Primary Care Provider [phone] Allergies Allergen (clinical drug ingredient) Drug/Non Drug Allergy documented on EMR Reaction Allergy Type Onset Date Status No Known Drug Allergy Unknown Drug Allergy Active No Known Food Allergy Unknown Drug Allergy Active REASON FOR VISIT Annual Exam Social History Tobacco Use: Social History Observation [...] Points 3 Interpretation Negative Vital Signs Temperature 98.3 degrees Fahrenheit 10/26/20 25 Blood pressure systolic 133 mm Hg 10/26/20 25 Blood pressure diastolic 80 mm Hg 025 Heart Rate 57 /min 10/26/2025 Height 69 in 10/26/2025 Weight 150 lbs 10/26/2025 BMI 22.15 kg/m2 10/26/2025 Encounters Encounter Location Date Provider Diagnosis Umberto Koo III, MD [address] [place] [address] [address] [place] [address] 10/26/2025 Umberto Koo Bilateral sensorineu ral hearing loss H90.3 ; Psoriasis L40.9 ; Hyperlipidemia E78.5 ; ADD (attention deficit disorder) F98.8 ; GERD (gastroesophageal reflux disease) K21.9 ; Inguinal hernia K40.90 ; BPH (benign prostatic hypertrophy) N40.0 and Bursitis of right shoulder M75.51 Assessments Encounter Date Diagnosis (ICD Code) Assessment Notes Treat ment Notes Treatment Clinical Notes 10/26/2025 Bilateral sensorineural hearing loss (ICD-10 - H90.3) He has noticed mild difficulty hearing in groups and conferences. He was referred to speech and hearing at [facility] for audiological evaluation. 10/26/2025 Psoriasis (ICD-10 - L40.9) His psoriasis has begun to itch. I recommended a trial of itpe-nnx-tmnhczb hydrocortisone. He will be referred back to his production cook if this is not successful. 10/26/2025 Hyperlipidemia (ICD-10 - E78.5) His total cholesterol is 200. His weight is stable and in normal range. We discussed diet and nutrition today. 10/26/2025 ADD (attention deficit disorder) (ICD-10 - F98.8) He does not need medication for this problem at this time. 10/26/2025 GERD (gastroesophageal reflux disease) (ICD-10 - K21.9) He has occasional heartburn which is well controlled with liquid antacids and omeprazole. 10/26/2025 Inguinal hernia (ICD-10 - K40.90) The hernia has been repaired and is no longer present. 10/26/2025 BPH (benign prostati c hypertrophy) (ICD-10 - N40.0) He admits to nocturia once a night. We discussed lifestyle modifications I could reduce this. 10/26/2025 Bursitis of right shoulder (ICD-10 - M75.51) This problem has resolved. Plan Of Treatment Next Appt Details Follow Up: 3 Months, Reason: Telehealth Provider Name:Umberto Koo , 01/24/2026 10:00:00 AM, [address] [place] [address] [address], [place], [address], Provider Name:Umberto Koo , 10/31/2026 02:30:00 PM, [address] [place] [address] [address], [place], [address], Progress Notes * Jeffrey OSMANDOB:[birth year] (69 yo M)Acc No.[id number]:10/26/2025 Progress Notes Patient: Jeffrey FIGUEROA Provider: Emiliano Koo MD :1955 A ge:69 Y S ex:Male Date:10/26/2025 Address:[address] [place], [place] [id number] Subjective: * Chief Complaints: * A nnual Exam * HPI: D epression Screening: Delia dos santos returns to the office at the age of 69 for his annual visit. He has been feeling healthy and well. He has had no return of the Clostridium difficile infection. He has psoriasis that comes and goes. It has come back now and is pruritic. He was advised to try 1% hydrocortisone. He has been to dermatology in the past and will be referred if necessary. He has not had any heartburn. He has the scope at home onto of migraine headaches frequently but has not had any actual painful headaches. He has nocturia once or twice a night. He is aware of lifestyle modifications he could make to reduce this. He says the ocular migraines are common after smoking marijuana. He was advised not to do so. He has requested a referral to psychotherapy. He declined to discuss the issue. He was referred to [facility] and/or [place] for human development. He is up-to-date with colonoscopy. He has noted some hearing loss requested evaluation. He was referred to speech and hearing at [facility]. PHQ-9 L ittle interest or pleasure in doing things?Several days F eeling down, depressed, or hopeless S everal days T rouble falling or staying asleep, or sleeping too much M ore than half the days F eeling tired or having little energy S everal days P oor appetite or overeating S everal days F eeling bad about yourself or that you are a failure, or have let yourself or your family down M ore than half the days T rouble concentrating on things, such as reading the newspaper or watching television S everal days M oving or speaking so slowly that other people could have noticed; or the opposite, being so fidgety or restless that you have been moving around a lot more than usual N ot at all T houghts that you would be better off or of hurting yourself in some way N ot at all T otal Score 9 I nterpretation M ild Depression Interpretation and Intervention D epression Screening Findings P ositive S uicide Risk Assessment Performed 1 12/27/2024 C OVID-19 Screening: Questions H ave you [...] needed? Check all that apply: N one F all Risk Screening: Fall History H ave you had any falls with injury in the past year? N o H ave you had two or more falls in the past year? N o F all Risk Assessment: N o falls in the past year * ROS: G eneral/Constitutional: pain o nly normal aches and pains. C hills d enies.?Fatigue a dmits. F ever d enies. E NT: Decreased hearing i n both ears. R espiratory: Cough d enies. C ardiovascular: [...] have been noted. G enitourinary: Frequent urination o nce a night. M usculoskeletal: Muscle aches d enies. P ainful joints d enies. S ciatica d enies. W eakness d enies. S kin: Itching P soriasis. R yaz d enies. S kin lesion(s) d enies. N eurologic: Difficulty speaking d enies. D izziness d enies.?Headache d enies. L ow back pain d enies. P sychiatric: Depressed mood d enies. * Medical History: * Surgical History: p neumothorax repaired surgically by Dr. Tee Ren colonoscopy, normal, [facility] [place] inguinal herniorrhaphy, Dr. Izquierdo 2013 * [...] egative H e was born in [place], [place]. {'Exercise': 'Working out more, trying to gain weight', 'Diet': 'Considering adding protein powder and creatine'}. * Medications: N one * Allergies: N o Known Drug AllergyNo Known Food Allergyno[Allergies Verified] Objective: * Vitals: H t: 69, Wt:150, BMI:22.15, BP:133/80, HR:57, Temp:98.3, Wt-k.04. * P ast Orders: Lab:Lyme IgG/IgM w/reflex to WB * Collection Date 10/19/2025 09/07/2023 Collection Time 09:57 AM 08:49 AM Order Date 10/19/2025 09/07/2023 Lyme IgG/IgM <0.90 (Ref Range: index) <0.90 (Ref Range: index) Lyme Blot TNP TNP * Lab:Prostate Specific Antige n * Collection Date 10/19/2025 10/13/2024 09/07/2023 Collection Time 10:04 AM 09:14 AM 08:49 AM Order Date 10/19/2025 10/13/2024 09/07/2023 Prostate Specific Antigen 1.52 (Ref Range: <0.05-4.0 ng/mL) 1.34 (Ref Range: <0.05-4.0 ng/mL) 1.30 (Ref Range: <0.05-4.0 ng/mL) * Lab:Lipid Panel * Collection Date 10/19/2025 02/17/2025 10/13/2024 Collection Time 09:57 AM 09:47 AM 09:14 AM Order Date 10/19/2025 02/17/2025 10/13/2024 Triglycerides 71 (Ref Range: <150 mg/dL) 50 (Ref Range: <150 mg/dL) 54 (Ref Range: <150 mg/dL) Cholesterol 200 H (Ref Range: <200 mg/dL) 182 (Ref Range: <200 mg/dL) 219 H (Ref Range: <200 mg/dL) LDL Cholesterol Calculated 132 H (Ref Range: <100 mg/dL) 116 H (Ref Range: <100 mg/dL) 148 H (Ref Range: <100 mg/dL) HDL Cholesterol 54 (Ref Range: >40 mg/dL) 56 (Ref Range: >40 mg/dL) 61 (Ref Range: >40 mg/dL) * Lab:Comprehensive [place]. Pane l Fast * Collection Date 10/19/2025 02/17/2025 10/13/2024 Collection Time 09:57 AM 09:47 AM 09:14 AM Order Date 10/19/2025 02/17/2025 10/13/2024 Sodium 138 (Ref Range: 135-145 mmol/L) 141 (Ref Range: 135-145 mmol/L) 139 (Ref Range: 135-145 mmol/L) Bilirubin Total 0.5 (Ref Range: 0.0-1.0 mg/dL) 0.5 (Ref Range: 0.0-1.0 mg/dL) 0.4 (Ref Range: 0.0-1.0 mg/dL) Aspartate Amino Transferase 29 (Ref Range: 5-37 U/L) 28 (Ref Range: 5-37 U/L) 26 (Ref Range: 5-37 U/L) Alanine Aminotransferase 20 (Ref Range: 0-40 U/L) 26 (Ref Range: 0-40 U/L) 21 (Ref Range: 0-40 U/L) Total Protein 7.0 (Ref Range: 6.5-8.0 g/dL) 7.1 (Ref Range: 6.5-8.0 g/dL) 7.9 (Ref Range: 6.5-8.0 g/dL) Albumin Level 4.3 (Ref Range: 3.5-5.0 g/dL) 4.0 (Ref Range: 3.5-5.0 g/dL) 4.3 (Ref Range: 3.5-5.0 g/dL) Alkaline Phosphatase 53 (Ref Range: 39-117 U/L) 59 (Ref Range: 39-117 U/L) 56 (Ref Range: 39-117 U/L) Potassium 4.5 (Ref Range: 3.3-5.1 mmol/L) 4.7 (Ref Range: 3.3-5.1 mmol/L) 4.9 (Ref Range: 3.3-5.1 mmol/L) Chloride 104 (Ref Range: 96-108 mmol/L) 106 (Ref Range: 96-108 mmol/L) 102 (Ref Range: 96-108 mmol/L) Carbon Dioxide 29 (Ref Range: 22-29 mmol/L) 29 (Ref Range: 22-29 mmol/L) 29 (Ref Range: 22-29 mmol/L) Anion Gap 10 L (Ref Range: 12-20) 11 L (Ref Range: 12-20) 13 (Ref Range: 12-20) Blood Urea Nitrogen 13 (Ref Range: 9-16 mg/dL) 10 (Ref Range: 9-16 mg/dL) 12 (Ref Range: 9-16 mg/dL) Creatinine 0.91 (Ref Range: 0.5-1.4 mg/dL) 0.99 (Ref Range: 0.5-1.4 mg/dL) 0.93 (Ref Range: 0.5-1.4 mg/dL) Estimated Glomerular Filt Rate > 60 > 60 > 60 Glucose Fasting 79 (Ref Range: 60-99 mg/dL) 89 (Ref Range: 60-99 mg/dL) 94 (Ref Range: 60-99 mg/dL) Calcium 9.3 (Ref Range: 8.4-10.2 mg/dL) 9.4 (Ref Range: 8.4-10.2 mg/dL) 9.5 (Ref Range: 8.4-10.2 mg/dL) * Lab:Complete Blood Count Aut o Diff * Collection Date 10/19/2025 02/17/2025 10/13/2024 Collection Time 09:57 AM 09:47 AM 09:14 AM Order Date 10/19/2025 02/17/2025 10/13/2024 White Blood Count 5.5 (Ref Range: 4.8-10.8 X10*3/uL) 5.1 (Ref Range: 4.8-10.8 X10*3/uL) 6.7 (Ref Range: 4.8-10.8 X10*3/uL) Red Blood Count 4.45 L (Ref Range: 4.60-5.80 X10*6/uL) 4.81 (Ref Range: 4.60-5.80 X10*6/uL) 5.07 (Ref Range: 4.60-5.80 X10*6/uL) Hemoglobin 13.5 L (Ref Range: 14.0-18.0 g/dl) 14.8 (Ref Range: 14.0-18.0 g/dl) 15.3 (Ref Range: 14.0-18.0 g/dl) Hematocrit 39.9 L (Ref Range: 42.0-52.0 %) 42.5 (Ref Range: 42.0-52.0 %) 45.6 (Ref Range: 42.0-52.0 %) Mean Corpuscular Volume 89.7 (Ref Range: 80.0-98.0 fL) 88.4 (Ref Range: 80.0-98.0 fL) 89.9 (Ref Range: 80.0-98.0 fL) Mean Corpuscular Hemoglobin 30.3 (Ref Range: 27.0-33.0 pg) 30.8 (Ref Range: 27.0-33.0 pg) 30.2 (Ref Range: 27.0-33.0 pg) Mean Corpuscular HGB Conc 33.8 (Ref Range: 31.0-36.0 g/dl) 34.8 (Ref Range: 31.0-36.0 g/dl) 33.6 (Ref Range: 31.0-36.0 g/dl) Red Cell Distribution Width 12.4 (Ref Range: 11.0-16.0 %) 12.3 (Ref Range: 11.0-16.0 %) 12.6 (Ref Range: 11.0-16.0 %) Platelet Count 239 (Ref Range: 160-400 X10*3/uL) 280 (Ref Range: 160-400 X10*3/uL) 294 (Ref Range: 160-400 X10*3/uL) Mean Platelet Volume 9.8 (Ref Range: 9.4-12.4 fL) 10.1 (Ref Range: 9.4-12.4 fL) 10.2 (Ref Range: 9.4-12.4 fL) Neutrophils Percent Auto 62.6 (Ref Range: 45-73 %) 59.3 (Ref Range: 45-73 %) 58.3 (Ref Range: 45-73 %) Imm Gran Pct Auto 0.4 (Ref Range: 0.0-0.4 %) 0.4 (Ref Range: 0.0-0.4 %) 0.1 (Ref Range: 0.0-0.4 %) Lymphocytes Percent Auto 25.3 (Ref Range: 20-40 %) 26.9 (Ref Range: 20-40 %) 28.6 (Ref Range: 20-40 %) Monocytes Percent Auto 9.9 (Ref Range: 2-11 %) 11.1 H (Ref Range: 2-11 %) 10.8 (Ref Range: 2-11 %) Eosinophils Percent Auto 1.4 (Ref Range: 0-4 %) 1.9 (Ref Range: 0-4 %) 1.9 (Ref Range: 0-4 %) Basophils Percent Auto 0.4 (Ref Range: 0-2 %) 0.4 (Ref Range: 0-2 %) 0.3 (Ref Range: 0-2 %) NRBC Pct Auto 0.0 (Ref Range: 0.0-0.2 /100WBC) 0.0 (Ref Range: 0.0-0.2 /100WBC) 0.0 (Ref Range: 0.0-0.2 /100WBC) Neutrophils Absolute Auto 3.5 (Ref Range: 2.0-8.3 x10*3/uL) 3.0 (Ref Range: 2.0-8.3 x10*3/uL) 3.9 (Ref Range: 2.0-8.3 x10*3/uL) Imm Gran Abs Auto 0.02 (Ref Range: 0.00-0.03 X10*3/uL) 0.02 (Ref Range: 0.00-0.03 X10*3/uL) 0.01 (Ref Range: 0.00-0.03 X10*3/uL) Lymphocytes Absolute Auto 1.4 (Ref Range: 1.2-4.9 X10*3/uL) 1.4 (Ref Range: 1.2-4.9 X10*3/uL) 1.9 (Ref Range: 1.2-4.9 X10*3/uL) Monocytes Absolute Auto 0.6 (Ref Range: 0.1-1.2 X10*3/uL) 0.6 (Ref Range: 0.1-1.2 X10*3/uL) 0.7 (Ref Range: 0.1-1.2 X10*3/uL) Eosinophils Absolute Auto [...] Examination: G eneral Examination: GENERAL APPEARANCE: p celina, well nourished, well developed, in no acute [...] normal, no ascites, no organomegaly, no mass, left inguinal herniorrhaphy scar. RECTAL EXAM: d eclined. MUSCULOSKELETAL: e xtremities unremarkable, no clubbing, cyanosis or edema. PERIPHERAL PULSES: n ormal. NEUROLOGIC: a lert and oriented, cranial nerves 2-12 grossly intact, deep tendon reflexes 2+ symmetrical, motor strength normal upper and lower extremities, sensory exam intact. PSYCH: a lert, oriented: cognitive function intact: cooperative with exam: good eye contact: speech clear: thought process logical, goal directed. ? Assessment: * Assessment: 1. B ilateral sensorineural hearing loss - H90.3 (Primary) N otes :He has noticed mild difficulty hearing in groups and conferences. He was referred to speech and hearing at [facility] for audiological evaluation. 2 . P soriasis - L40.9 N otes :His psoriasis has begun to itch. I recommended a trial of aavl-dbx-xeswjxt hydrocortisone. He will be referred back to his production cook if this is not successful. 3 . H yperlipidemia - E78.5 N otes :His total cholesterol is 200. His weight is stable and in normal range. We discussed diet and nutrition today. 4 . A DD (attention deficit disorder) - F98.8 N otes :He does not need medication for this problem at this time. 5 . G ERD (gastroesophageal reflux disease) - K21.9 N otes :He has occasional heartburn which is well controlled with liquid antacids and omeprazole. 6 . I nguinal hernia - K40.90 N otes :The hernia has been repaired and is no longer present. 7 . B PH (benign prostatic hypertrophy) - N40.0 N otes :He admits to nocturia once a night. We discussed lifestyle modifications I could reduce this. 8 . B ursitis of right shoulder - M75.51 N otes :This problem has resolved. Plan: * Treatment: * Procedure Codes: * Follow Up: 3 Months (Reason: Telehealth) * Images: * Sign off status: Completed true * Provider: Emiliano Koo MD Date: 12/27/2024 Generated for Jane morris/Kathe/eTransmitting on: 12/29/2024 09:49 AM EST History and Physical Notes * HPI (History of Present Illness) Category Sub-Category Detail Notes Depression Screening PHQ-9 Little inte rest or pleasure in doing things: Several days Feeling down, depressed, or hopeless: Se veral days Trouble falling or staying a sleep, or sleeping too much: More than half the days Feeling tired or having little energy: S everal days Poor appetite or overeating: Several day s Feeling bad about yourself o r that you are a failure, or have let yourself or your family down: More than half the days Trouble concentrating on thi ngs, such [...] some way: Not at all Total Score: 9 Interpretation: Mild Depression Interpretation and Intervention Depression [place] mota Findings: Positive Suicide Risk Assessment Performed: 10/26 Fall Risk Screening Fall History Have you had any falls with injury in the past year?: No Have you had two or more falls in the year?: No Fall Risk Assessment:: No falls in the year COVID-19 Screening Questions Have you had any [...] normal, no ascites, no organomegaly, no mass, left inguinal herniorrhaphy scar NEUROLOGIC: alert and oriented, cranial nerves 2-12 grossly intact, deep tendon reflexes 2+ symmetrical, motor strength normal upper and lower extremities, sensory exam intact SKIN: no suspicious lesion s, anicteric PERIPHERAL PULSES: normal BREASTS: no masses palpable b ilaterally MUSCULOSKELETAL: extremities unremark able, no clubbing, cyanosis or edema LYMPH NODES: no enlarged lymph no jeffrey,spleen normal RECTAL EXAM: declined PSYCH: alert, oriented: cog nitive function intact: cooperative with exam: good eye contact: speech clear: thought process logical, goal directed ORAL CAVITY: normal, unremarkable
--- NOTE | 2025-10-28 | ECG_ITS ---
Test Reason : HEADACHE Blood Pressure : */* mmHG Vent. Rate : 72 BPM Atrial Rate : * BPM P-R Int : * ms QRS Dur : 90 ms QT Int : 378 ms P-R-T Axes : * 63 21 degrees QTcB Int : 413 ms Atrial fibrillation Abnormal ECG When compared with ECG of 28-Oct-2025 09:48, No significant changes seen Referred By: Gabbi Kimball Electronically Signed By: DAYNA BHATT MD
--- NOTE | ~2025-10-28 | CT_ITS ---
CLINICAL HISTORY: Headache CT head without contrast Comparison: None provided Findings: No intra-axial mass, midline shift, hydrocephalus, or acute hemorrhage. Left maxillary sinus polyp/retention cyst. The orbits are within normal limits. No skull fracture. IMPRESSION: 1. No acute intracranial findings. This document has been electronically signed by: Darlyn Sullivan MD on 10/28/2025 12:36:33
--- NOTE | ~2025-10-28 | XR_ITS ---
CLINICAL HISTORY: Cough 1 view chest x-ray. Comparison: None provided Findings: Heart size is normal. No consolidation or effusion. No acute fracture. The visualized upper abdomen is unremarkable. Impression: No acute cardiopulmonary process. This document has been electronically signed by: Kayli Cleary MD on 10/28/2025 13:02:00
[2025-10-28 09:27] VITALS: BP 113/59; PULSE 82; RESP 18; TEMP 36.6; O2SAT 98; BMI 20.4
--- NOTE | 2025-10-28 09:38 | ED_ITS ---
HPI - Headache General Chief Complaint: Headache Stated Complaint: wants to rule out possibly having symptoms stroke Time Seen by Provider: 10/28/25 09:32 History of Present Illness ED Provider: Gabbi Kimball NP HPI Narrative: 69-year-old male medical history significant for spontaneous pneumothorax, acute appendicitis, presents to the ED with chief complaint of a headache ongoing for 36 hours. Patient reports that he has felt a headache in the back of the head, throughout the had ongoing for greater than 24 hours. Patient reports that last night the left eye was drooping at the top, but upon awakening this morning and had resolved. The headache however is still present. He does feel this is similar to previous migraines, but more prominent. No diplopia, visual disturbances. No dizziness, lightheadedness. No temporal discomfort. No chest pain or pressure, shortness of breath, abdominal pain, nausea or vomiting, urinary complaints. No fever, chills, recent illnesses. No lack of strength, sensation. No reports of any weakness. No alteration in mentation, speech, gait. Related Data Previous Rx's ?Medication ?Instructions ?Recorded oxycodone 5 mg tablet 5 mg PO Q4H PRN pain (scale score 09/07/22 7-10) #24 tabs Allergies Allergy/AdvReac Type Severity Reaction Status Date / Time No Known Allergies Allergy Verified 10/28/25 09:29 Review of Systems 2 Review of Systems: ROS is otherwise negative unless mentioned in HPI. ENT: Reports Normal hearing present Neurologic: Reports Normal hearing present [facility] Past Medical History Medical History Acute appendicitis No pertinent past medical history Spontaneous pneumothorax Surgical History H/O inguinal hernia repair History of thoracic surgery Social History Social History Household Members: Spouse Housing: House Do you presently have visiting nurse or other home services: No Patient Tobacco Use Status: Never used Tobacco Substance Use Type: Marijuana Advance Directives: No Advance Directives Information Provided: No Do you have a plan to hurt others: No Plan Physical Exam 2 Exam: Exam: Nursing notes and vital signs reviewed. Constitutional: Well-appearing, NAD. Alert. Oriented X3. Eyes: Pupils equal, round and reactive to light. EOMI. ENT: Oropharynx pink, moist, normal. Uvula midline. Neck: Normal inspection. Neck supple. No cervical adenopathy. No c-spine tenderness. Normal ROM. CVS: Normal heart rate and rhythm. Pulses normal. Respiratory: No respiratory distress. Breath sounds normal. Abdomen: Soft, nontender, nondistended. Skin: Skin warm and dry. Normal skin color. Extremities: No lower extremity edema. Neuro: Oriented X 3. Cranial nerves intact. No dysmetria, [id number] intact. No dysarthria. No motor deficit. Vital Signs: Vital Signs: Last Vital Signs Temp 98 F 10/28/25 09:27 Pulse 68 10/28/25 12:59 Resp 16 10/28/25 12:59 BP 101/69 10/28/25 12:59 Pulse Ox 98 10/28/25 12:59 O2 Del Method Room Air 10/28/25 12:59 BMI result Body Mass Index 20.4 Const: Orientation/consciousness: patient oriented x3 Eyes: Pupils: Equal, round and reactive pupils present Neuro: General: patient oriented x3, gait normal and moves all extremities Cranial nerves: Yes CN's II-XII intact bilaterally, Yes Facial sensation intact/muscles of mastication intact, Yes Equal, round and reactive pupils present, Yes Bilaterally intact EOM present, Yes Normal hearing present and Yes Ability to bilaterally rotate head present Cognition (Neuro): normal cognition Gait exam (Neuro): Normal gait present Motor exam (neuro): 5/5 motor strength present throughout Sensory Exam: Normal double simultaneous stimulation for sensation Coordination: pydpwa-bw-[id number] test normal, xhxp-oz-toad test normal and does not sway with eyes open Medications Administered Discontinued Medications Generic Name Dose Route Start Last Admin Trade Name Freq PRN Reason Stop Dose Admin Diphenhydramine HCl 12.5 mg 10/28/25 12:48 10/28/25 12:58 Diphenhydramine Hcl 50 Mg/Ml Vial IVPUSH 10/28/25 12:49 12.5 mg ONCE ONE Administration Sodium Chloride 1,000 mls @ 999 mls/hr 10/28/25 12:48 10/28/25 12:59 Ns IV 10/28/25 13:48 999 mls/hr .Q1H1M ONE Administration Ketorolac Tromethamine 15 mg 10/28/25 12:48 10/28/25 12:58 Ketorolac Tromethamine 15 Mg/Ml Vial IVPUSH 10/28/25 12:49 15 mg ONCE ONE Administration Prochlorperazine Edisylate 10 mg 10/28/25 12:48 10/28/25 12:59 Prochlorperazine Edisylate 10 Mg/2 Ml Vial IVPUSH 10/28/25 12:49 10 mg ONCE ONE Administration Medical Decision Making Medical Decision Making [facility] Narrative: Exam shows a well-appearing male, NAD, answering all questions appropriately. He has a nonfocal neurological examination. Cranial nerves are intact. He reports this feels similar to previous migraine headaches. I have low clinical suspicion for stroke, we will obtain CT of the head without contrast to rule underlying brain mass, however unlikely. I do not suspect any LVO. There is no aphasia, neglect, head or gaze deviation. No motor deficits. No imbalance or incoordination. This likely is an acute migraine headache. We will obtain labs, urinalysis, EKG, x-ray of the chest, viral panel to exclude underlying pathology and reassess. 1:00 pm-- Upon reassessment his lab work was overall reassuring. No leukocytosis. LFTs normal. Negative troponin. Negative viral panel. Pending urinalysis currently. CT of the head with no acute intracranial pathology. Therefore, we will proceed with migraine medication administration. I discussed this with the patient, and with his family member at bedside, who were agreeable to this. 2:40 PM-- He reports full resolution of his headache. Reporting feeling much better. This likely was an acute migraine headache. I recommended he follows up with Neurology outpatient. He was given strict return precautions to the back to the ED. He is agreeable to plan. Differential Diagnosis Differential Diagnoses: The differential diagnosis associated with the presentation includes brain mass, intracranial hemorrhage, migraine, viral illness Admission/Observation Consideration of admission/observation: Escalation of care including admission/observation considered Not indicated. Lab Data [facility] Lab Attestation statement: I reviewed the patient's lab results. (Reassuring overall. ) 10/28/25 09:58 10/28/25 09:58 Labs: Lab Results 10/28/25 Range/Units 09:58 WBC 7.0 (4.8-10.8) X10*3/uL RBC 5.01 (4.60-5.80) X10*6/uL Hgb 15.2 (14.0-18.0) g/dl Hct 44.7 (42.0-52.0) % MCV 89.2 (80.0-98.0) fL MCH 30.3 (27.0-33.0) pg MCHC 34.0 (31.0-36.0) g/dl RDW 12.5 (11.0-16.0) % Plt Count 254 (160-400) X10*3/uL MPV 9.9 (9.4-12.4) fL Immature Gran % (Auto) 0.4 (0.0-0.4) % Neut % (Auto) 64.5 (45-73) % Lymph % (Auto) 22.9 (20-40) % [place] % (Auto) 9.8 (2-11) % Eos % (Auto) 2.0 (0-4) % Baso % (Auto) 0.4 (0-2) % Lymph # (Auto) 1.6 (1.2-4.9) X10*3/uL [place] # (Auto) 0.7 (0.1-1.2) X10*3/uL Eos # (Auto) 0.1 (0.0-0.4) X10*3/uL Baso # (Auto) 0.0 (0.0-0.2) X10*3/uL Abs Immat Gran (auto) 0.03 (0.00-0.03) X10*3/uL Absolute Neuts (auto) 4.5 (2.0-8.3) x10*3/uL Absolute Nucleated RBC 0.000 (0.0-0.012) X10*3/uL Nucleated RBC % (auto) 0.0 (0.0-0.2) /100WBC PT 12.5 (11.2-13.5) SEC INR 1.0 (0.9-1.1) Sodium 137 (135-145) mmol/L Potassium 4.8 (3.3-5.1) mmol/L Chloride 104 (96-108) mmol/L Carbon Dioxide 28 (22-29) mmol/L Anion Gap 10 L (12-20) BUN 15 (9-16) mg/dL Creatinine 0.99 (0.5-1.4) mg/dL Estim Creat Clear Calc 65.9 Estimated GFR > 60 Random Glucose 94 (60-115) mg/dL Calcium 9.1 (8.4-10.2) mg/dL Magnesium 2.0 (1.6-2.6) mg/dL Total Bilirubin 0.6 (0.0-1.0) mg/dL AST 20 (5-37) U/L ALT 20 (0-40) U/L Alkaline Phosphatase 57 (39-117) U/L Troponin I High Sens < 2.7 (<3.5-35.0) ng/L Total Protein 7.3 (6.5-8.0) g/dL Albumin 4.2 (3.5-5.0) g/dL Influenza Type A (PCR) NEGATIVE (Negative) Influenza Type B (PCR) NEGATIVE (Negative) RSV RNA Qual (PCR) NEGATIVE (Negative) SARS-CoV-2 RNA (RT-PCR) NEGATIVE (Negative) Independent Interpretation I performed an independent interpretation of an: EKG Interpretation: Rate: 72 Rhythm: SR [place]: --/63/21 Normal P waves. Normal SERAFIN. Normal QRS complex. ST T wave : no dep, elev qTC: 413 prior studies:similar The study has been interpreted contemporaneously by me. Radiology Impression Discussion of test interpretation with radiology: I have reviewed the radiologist's reading. Radiologist Impression: X-Ray Chest Impression: No acute cardiopulmonary process. Head CT WO IMPRESSION: 1. No acute intracranial findings. Independent Historian Clinical information obtained from an independent historian. History obtained from or confirmed by: Other (Daughter) External Record Review External record reviewed: Outside ED record Chronic Conditions Patient?s care impacted by: Other (Migraines) Social Determinants Patient?s care significantly limited by Social Determinants of Health including: Problems related to primary support group Discharge Plan Discharge Clinical Impression: Headache Qualifiers: Headache type: unspecified Headache chronicity pattern: acute headache I ntractability: not intractable Qualified Code(s): R51.9 - Headache, unspecified Patient Disposition: Home, Self-Care Instructions: Acute Headache (DC) Additional Instructions: As we discussed, you were seen today for headache. Your lab work was reassuring. Your cardiac enzyme was normal.. EKG was also normal, as was the x-ray of the chest. The CT of the head does not reveal any acute intracranial findings. I gave you medications to treat your migraine. Your symptoms completely resolved. I do recommend that you follow up outpatient with your primary care provider. I also recommended you follow up with a neurologist. I have listed 1 for your convenience. With any new, worsening complaints at any time, return back to the ED for additional assessment. Prescriptions: No Action oxycodone 5 mg tablet 5 mg PO Q4H PRN (Reason: pain (scale score 7-10)) Qty: 24 0RF Rx Instructions: Partial Fill upon patient request. [place]: [facility] [place] [facility] [place] Group] Umberto Koo MD [Primary Care Provider, Internal Medicine] Print Language: Estonian
--- NOTE | 2025-10-28 09:40 | ECG_ITS ---
Test Reason : HEADACHE Blood Pressure : */* mmHG Vent. Rate : 58 BPM Atrial Rate : 58 BPM P-R Int : * ms QRS Dur : 88 ms QT Int : 378 ms P-R-T Axes : * 53 12 degrees QTcB Int : 371 ms Atrial fibrillation Abnormal ECG No previous ECGs available Referred By: Gabbi Kimball Electronically Signed By: DAYNA BHATT MD
--- OUTSIDE RECORDS SUMMARY | 2025-10-28 09:49 | XMS_ITS | Patient Health Record ---
Author Organization [facility] Address [address] [place] [id number] Care Team Providers Care Technical Photographer Name Role Phone Umberto Koo MD Primary Care Provider Umberto Longoria Unavailable [phone] Allergies Allergen (clinical drug ingredient) Drug/Non Drug [...] Problem Screening for malignant neoplasm of colon ([id number]) Encounter for screening for malignant neoplasm of colon (Z12.11) Active confirmed Problem Preprocedural examination ([id number]) Preprocedural examination (Z01.818) Active confirmed Plan Of Treatment Future Test Test Name Order Date COLONOSCOPY 10/22/2019 Insurance Providers Payer Name Payer Address Payer Phone Subscriber Number Group Number Insured Name Patient Relationship to Insured Coverage Start Date Coverage End Date [facility] [address] [place] [phone] [id number] AMANDA OSMAN Self - patient is the insured Medical (General) History Medical History History ICD Code Denies ID,DM,CVA,Lung disease,renal dise ase Neg. screening colonoscopy 11/2009 with Maribeth Morris Surgical History Surgery Date(Month/Year) Pneumothorax 1975 Left inguinal surgery 2011
--- OUTSIDE RECORDS SUMMARY | 2025-10-28 09:50 | XMS_ITS | Patient Health Record ---
Author Organization Umberto Koo III, MD Address [address] [place] [address] Care Team Providers Care Director Information Security Name Role Phone Dr. Umberto Koo III Primary Care Provider Allergies Allergen (clinical drug ingredient) Drug/Non Drug Allergy documented on EMR Reaction Allergy Type Onset Date Status No Known Drug Allergy Unknown Drug Allergy Active No Known Food Allergy Unknown Drug Allergy Active Results Component Value Reference Range Notes Complete Blood Count Auto Di ff Reviewed date:02/20/2025 07:18:23 AM Interpretation: Performing Lab:[facility], [address] [place] [phone] Notes/Report: White Blood Count 5.1 4.8-10.8 X10*3/uL [...] NRBC Abs Auto 0.000 0.0-0.012 X10*3/uL Comprehensive [place]. Panel Fa st Reviewed date:02/20/2025 07:18:23 AM Interpretation: Performing Lab:[facility], [address] [place] [phone] Notes/Report: Sodium 141 135-145 mmol/L Potassium 4.7 [...] Panel Reviewed date:02/20/2025 07:18:23 AM Interpretation: Performing Lab:[facility], [address] [place] [phone] Notes/Report: Triglycerides 50 <150 mg/dL Desirable Triglyceride: [...] disease. Complete Blood Count Auto Di ff Reviewed date:10/20/2025 01:29:58 PM Interpretation: Performing Lab:[facility], [address] [place] [phone] Notes/Report: White Blood Count 5.5 4.8-10.8 X10*3/uL [...] NRBC Abs Auto 0.000 0.0-0.012 X10*3/uL Comprehensive [place]. Panel Fa st Reviewed date:10/20/2025 01:29:58 PM Interpretation: Performing Lab:[facility], [address] [place] [address] Notes/Report: Sodium 138 135-145 mmol/L Potassium 4.5 [...] Alkaline Phosphatase 53 39-117 U/L Lipid Panel Reviewed date:10/20/2025 01:29:58 PM Interpretation: Performing Lab:[facility], [address] [place] [phone] Notes/Report: Triglycerides 71 <150 mg/dL Desirable Triglyceride: [...] with liver disease. Prostate Specific Antigen Reviewed date:10/20/2025 01:29:58 PM Interpretation: Performing Lab:[address] [phone] Notes/Report: Prostate Specific Antigen 1.52 <0.05-4.0 ng/mL PSA methodology: Butler Alinity i Chemiluminescent Microparticle Immunoassay (CMIA) Lyme IgG/IgM w/reflex to WB Reviewed date:10/20/2025 01:29:58 PM Interpretation: Performing Lab:[address] [phone] Notes/Report: Lyme Abs Screen <0.90 Index Interpretation ----- < 0.90 Negative 0.90-1.09 Equivocal > 1.09 Positive As recommended by the Food and Drug Administration (FDA), all samples with positive or equivocal results in a Borrelia burgdorferi antibody screen will be tested using a blot method. Positive or equivocal screening test results should not be interpreted as truly positive until verified as such using a supplemental assay (e.g., B. burgdorferi blot). The screening test and/or blot for B. burgdorferi antibodies may be falsely negative in early stages of Lyme disease, including the period when erythema migrans is apparent. THIS TEST WAS PERFORMED AT: [facility] [address] [place] [phone] SUDHAKAR LUA MD Lyme Blot TNP Reason For Referral Reason right knee pain Ev aluate and treat Diagnosis 1 Pain in right knee ( M25.561) Diagnosis 2 Other chronic pain ( G89.29) Referral Organization Umberto Koo III, MD Referring Provider First Name Umberto Referring Provider Last Name Hanane Referring Provider Speciality Internal M edicine Referred Provider [place], [facility], [facility] Referred Provider Specialty Orthopedic S urgery General [...] Diphtheria Toxoids Adsorbed IM Intramuscular 10/20/2024 Administered Typhoid (ViCPs) Unknown 07/26/2025 Administered Yellow Fever Unknown 06/07/2025 Administered Hepatitis A (adult) Unknown 06/07/2025 Administered Social History Tobacco Use: Social History [...] Problem Status W/U Status Risk Notes Problem 72089393 Hyperlipidemia (E78.5) Active confirmed His total cholesterol is 200. His weight is stable and in normal range. We discussed diet and nutrition today. Problem 73120520 Weight loss (R63.4) Active confirmed Since his last visit a year ago. He has lost 17 pounds. He says he was trying to lose weight. His body mass index is in the underweight range. A CT scan of the abdomen and pelvis has been ordered to evaluate the pain and weight loss. Problem 379557107 GERD (gastroesophagea l reflux disease) (K21.9) Active confirmed He has occasional heartburn which is well controlled with liquid antacids and omeprazole. Problem 125861591 Tinea cruris (B35.6) Active confirmed He was instructed on the use of terbinafine twice a day for 14 days. Problem 90577121 Other chronic pain (G89.29) Active confirmed Problem [id number] Bursitis of right shoulder (M75.51) Active confirmed This problem has resolved. Problem Benign prostatic hypertrophy without outflow obstruction (802188968) BPH (benign prostatic hypertrophy) (N40.0) Active confirmed He admits to nocturia once a night. We discussed lifestyle modifications I could reduce this. Problem 4512331 Psoriasis (L40.9) Active confirmed His psoriasis has begun to itch. I recommended a trial of ghjf-abg-hkiep er hydrocortisone . He will be referred back to his bellows assembler if this is not successful. Problem 324176905 Inguinal hernia (K40.90) Active confirmed The hernia has been repaired and is no longer present. Problem 111364223 Non-cardiac chest pain (R07.89) Active confirmed He has had no further episodes of chest wall pain and is doing well. There is no pneumothorax. It is likely an intercostal nerve impingement or a transient pleurisy. There was no sign of pulmonary embolism. He will be observed. Problem 455911922 ADD (attention deficit disorder) (F98.8) Active confirmed He does not need medication for this problem at this time. Problem 172310367820741 Episodic migraine (G43.909) Active confirmed He will fill the prescription of sumatriptan and use that to see if it well relieve his migraine symptoms. He has nnot yett had the presccription filled. Problem 932642923 Clostridium difficile colitis (A04.72) Active confirmed He has had no further episodes of this infection since his last visit.. Vital Signs Heart Rate 57 /min 10/26/2025 Temperature 98.3 degrees Fahrenheit 10/26/2025 Blood pressure diastolic 80 mm Hg 10/26/2025 Height 69 in 10/26/2025 Blood pressure systolic 133 mm Hg 10/26/2025 Weight 150 lbs 10/26/2025 BMI 22.15 kg/m2 10/26/2025 Encounters Encounter Location Date Provider Diagnosis Umberto Koo III, MD [address] [place] [address] [place] [phone] 02/23/2025 Umberto Koo Psoriasis L40.9 ; Hyperlipidemia E78.5 ; ADD (attention deficit disorder) F98.8 ; GERD (gastroesophageal reflux disease) K21.9 ; Inguinal hernia K40.90 and BPH (benign prostatic hypertrophy) N40.0 Umberto Koo III, MD [address] [place] [address] [place] [phone] 10/08/2025 Umberto Koo Hyperlipidemia E78.5 ; Tinea cruris B35.6 ; BPH (benign prostatic hypertrophy) N40.0 ; Psoriasis L40.9 ; ADD (attention deficit disorder) F98.8 ; GERD (gastroesophageal reflux disease) K21.9 and Clostridium difficile colitis A04.72 Umberto Koo III, MD [address] [place] [address] [place] [phone] 10/26/2025 Umberto Koo Bilateral sensorineu ral hearing loss H90.3 ; Psoriasis L40.9 ; Hyperlipidemia E78.5 ; ADD (attention deficit disorder) F98.8 ; GERD (gastroesophageal reflux disease) K21.9 ; Inguinal hernia K40.90 ; BPH (benign prostatic hypertrophy) N40.0 and Bursitis of right shoulder M75.51 Umberto Koo III, MD [address] [place] [address] [place] [phone] 10/29/2024 Umberto Koo Assessments Encounter Date Diagnosis (ICD Code) Assessment Notes Treat ment Notes Treatment Clinical Notes 02/23/2025 Hyperlipidemia (ICD-10 - E78.5) His body [...] was thought to be eczema but the bellows assembler made the diagnosis. 10/08/2025 Hyperlipidemia (ICD-10 - E78.5) Comprehensive blood work including a fasting lipid profile will be done in the near future when he comes in again. His values have been stable. 10/08/2025 Tinea cruris (ICD-10 - B35.6) He was instructed on the use of terbinafine twice a day for 14 days. 10/26/2025 Psoriasis (ICD-10 - L40.9) His psoriasis has begun to itch. I recommended a trial of ghwx-jrq-porfbdh hydrocortisone. He will be referred back to his bellows assembler if this is not successful. 10/26/2025 Bilateral sensorineural hearing loss (ICD-10 - H90.3) He has noticed mild difficulty hearing in groups and conferences. He was referred to speech and hearing at [facility] for audiological evaluation. 02/23/2025 ADD (attention deficit disorder) (ICD-10 - F98.8) He does not need medication for this problem at this time. 10/08/2025 BPH (benign prostati c hypertrophy) (ICD-10 - N40.0) He admits to nocturia once a night. We discussed lifestyle modifications I could reduce this. 10/26/2025 Hyperlipidemia (ICD-10 - E78.5) His total cholesterol is 200. His weight is stable and in normal range. We discussed diet and nutrition today. 02/23/2025 GERD (gastroesophageal reflux disease) (ICD-10 - K21.9) He has occasional heartburn which is well controlled with liquid antacids and omeprazole. 10/08/2025 Psoriasis (ICD-10 - L40.9) He has a small patch of psoriasis on his left jenkins. In the past this was thought to be eczema but the bellows assembler made the diagnosis. 10/26/2025 ADD (attention deficit disorder) (ICD-10 - [...] controlled with liquid antacids and omeprazole. 02/23/2025 BPH (benign prostati c hypertrophy) (ICD-10 [...] been repaired and is no longer present. 10/08/2025 Clostridium difficil e colitis (ICD-10 - A04.72) He has had no further episodes of this infection since his last visit.. 10/26/2025 BPH (benign prostati c hypertrophy) (ICD-10 - N40.0) He admits to nocturia once a night. We discussed lifestyle modifications I could reduce this. 10/26/2025 Bursitis of right shoulder (ICD-10 - M75.51) This problem has resolved. Plan Of Treatment Pending Test Test Name Order Date URINE DIP STICK 07/24/2021 PROFILE, FASTING (COMPREHENSIVE METABOLI C) 10/08/2025 PROFILE, FASTING (COMPREHENSIVE METABOLI C) 08/28/2023 PROFILE, FASTING (COMPREHENSIVE METABOLI C) 07/11/2022 PROFILE, FASTING (COMPREHENSIVE METABOLI C) 07/31/2023 PROFILE, FASTING (COMPREHENSIVE METABOLI C) 10/20/2024 PROFILE, [...] TOTAL 04/15/2019 PSA, TOTAL 07/24/2021 PSA, TOTAL 04/14/2018 PSA, TOTAL 04/15/2024 PSA, TOTAL SCREEN 07/11/2022 CBC w DIFF 04/14/2018 CBC w DIFF 04/15/2024 CBC w DIFF 10/01/2017 CBC w DIFF 08/28/2022 CBC w DIFF 10/08/2025 CBC w DIFF 03/26/2017 CBC w DIFF 10/20/2024 CBC w DIFF 07/31/2023 CBC w DIFF 04/15/2019 CBC w DIFF 07/11/2022 CBC w DIFF 07/24/2021 SED RATE (ESR) 08/28/2022 CLOSTRIDIUM DIFF TOXIN A&B (C DIFF) 03/05 LYME DISEASE IgG/IgM WB 08/28/2023 XR CHEST 2 VIEW PA & LAT 08/06/2019 VITAMIN D 25-OH TOTAL 04/15/2019 LYME IGM & IGG RFLX WB 10/08/2025 CBC WITH AUTO DIFF 08/28/2023 SARS COV2 RNA RT PCR 08/10/2020 SARS COV2 RNA RT PCR 07/01/2020 Lipid Panel 07/31/2023 Lipid Panel 04/15/2024 Lipid Panel 10/08/2025 Lipid Panel 10/20/2024 Lipid Panel 08/28/2023 Stool Culture 03/27/2023 Lyme IgG/IgM w/reflex to WB 08/28/2023 Next Appt Details Provider Name:Umberto Blasne , 01/24/2026 10:00:00 AM, [address] [place] [address] [place], [place], [phone], Provider Name:Umberto Blasne , 10/31/2026 02:30:00 PM, [address] [place] [address] BARI RIVERA, [place], [phone], Insurance Providers Payer Name Payer Address Payer Phone Subscriber Number Group Number Insured Name Patient Relationship to Insured Coverage Start Date Coverage End Date MEDICARE NGS [address] [place] [phone] [id number] Jeffrey Peoples Self - patient is the insured [address] [facility] [place] [phone] [id number] Jeffrey Peoples Self - patient is the insured Medical (General) History Medical History History ICD Code non-cardiac chest pain eczema ADD atypical depression left lung pneumothorax left lung [employer] Repaired left inguinal hernia 2013 Surgical History Surgery Date(Month/Year) Left inguinal herniorrhaphy, Dr. Grullon er 2013 [place] [facility] [place]othorax repaired surgically by Dr. Tee Ren Hospitalization History Reason Date(Month/Year) No history
--- OUTSIDE RECORDS SUMMARY | 2025-10-28 09:50 | XMS_ITS | Patient Health Record ---
[facility] Organization [facility] ma[place]ol [place] Address [address] [place] [address] Care Team Providers Care Autopsy Pathologist Name Role Phone Umberto Koo MD Primary Care Provider Campbell Wilks Unavailable [phone] Allergies No Known Allergies Reason For Referral [...] Insured Coverage Start Date Coverage End Date [facility] [address] [place] [address] [id number] Jeffrey Peoples Self - patient is the insured Medical (General) History Surgical History Surgery Date(Month/Year)
--- OUTSIDE RECORDS SUMMARY | 2025-10-28 09:50 | XMS_ITS | Data Portability ---
Author Organization [facility], [facility] Address [address] [place] [address] Care Team Providers Care Education And Training Manager Name Role Phone Mare Koo Primary Care Provider Assessment No assessment recorded. Plan of Treatment Reminders Order Date Submit Date Provider Name Organization Details Last Modified By Last Modified Time Details Appointments None recorde d. Lab None recorde d. Referral physica l therapi st referra l 2024 11:08: 24 025 Katarina Moreno PA-C [facility] [address] [place], [address], true[x] Media 5 08:47:05 Procedures None recorde d. Surgeries None recorde d. Imaging MRI, knee, w/o contras t 2024 11:06: 38 025 Katarina Moreno PA-C [facility] ([facility]) [address], [place], [address], true[x] Media 5 15:39:57 XR, knee, 4 or more view 2024 10:30: 43 025 [facility] [address],[facility] [address], [place], [address], true[x] Media 5 08:47:05 MedicationOrders None recorde d. VaccineOrders None recorde d. Patient TargetsNo targets recorded. Patient InstructionsNo instructions recorded. Reason for Referral Physical Therapist Referral for Pain of right knee joint VMO Strengthening, Quad & Hamstring Stretching, Patella Mobilization, Shah Taping Referring Physician: Katarina Moreno, Orthopedic Surgery, Encounter Date: 11/10/2024 Results Created Date Observation Date Name Description Value Unit Range Abnormal Flag Specimen Type Note LastModifiedBy Organization Detail LastModifiedTime 01/06/2025 01/06/2025 MR, knee (C-) right CPT [address] [facility] Accession Number: [id number] Patient Name: Jeffrey Peoples Date of : 1955 Date of Exam: 01-06-2025 Referring Physician: Katarina Kebede [facility] [address] [place] [address] Exam: MR Knee (C-) CPT 77608 - Right Room Description: [facility] Pion 3T History: Unspecified internal derangement of the right knee, question medial meniscal tear. The patient reports mild to moderate intermittent right knee pain for years. History of a twisting injury while hiking 40 years ago. Technique: MRI of the right knee was performed without intravenous contrast. Comparison: None. Findings: Joint effusion: No joint effusion is present. Hoffa's fat pad is unremarkable. Trace fluid is seen in a Lagunas's cyst. Menisci: Intrameniscal degeneration is seen in the medial meniscal body, which approaches though does not definitely contact the inferior articular surface. The lateral meniscus appears intact. Tendons and ligaments: The ACL appears somewhat attenuated with mild bony proliferation and marrow edema like signal near its proximal attachment, which may reflect sequela of prior partial tear. The PCL appears intact. The collateral ligaments are unremarkable. The iliotibial band is unremarkable. The extensor mechanism appears normal. Articular cartilage and bone: There is an irregular full-thickness chondral defect in the medial patella which measures approximately 5 x 5 mm with mild adjacent subchondral marrow edema like signal. Surrounding mild chondral thinning in the remainder of the medial patellar cartilage. Medial and lateral compartment cartilage is normal in thickness. Impression: 1. 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 2. Attenuation of the ACL with mild bony proliferation and mild marrow edema like signal near its proximal attachment, which may reflect sequela of prior partial tear. 3. Chondromalacia patella. Electronically Signed By: Agustina Moreno PA-C [facility] ([facility]) , [address] , [place] , [address], [place] , 01/07/2025 10:38:59 Result Notes Documentation Provider Name and Address Organization Details Recorded Time Mri, Knee, W/o Contrast : [facility] Accession Number: [id number] Patient Name: Jeffrey Peoples Date of : 1955 Date of Exam: 01-06-2025 Referring Physician: Katarina Kebede [address] [place], [place] [address] Exam: MR Knee (C-) CPT 03442 - Right [facility]: Unspecified internal derangement of the right knee, question medial meniscal tear. The patient reports mild to moderate intermittent right knee pain for years. History of a twisting injury while hiking 40 years ago. Technique: MRI of the right knee was performed without intravenous contrast. Comparison: None. Findings: Joint effusion: No joint effusion is present. Hoffa's fat pad is unremarkable. Trace fluid is seen in a Lagunas's cyst. Menisci: Intrameniscal degeneration is seen in the medial meniscal body, which approaches though does not definitely contact the inferior articular surface. The lateral meniscus appears intact. Tendons and ligaments: The ACL appears somewhat attenuated with mild bony proliferation and marrow edema like signal near its proximal attachment, which may reflect sequela of prior partial tear. The PCL appears intact. The collateral ligaments are unremarkable. The iliotibial band is unremarkable. The extensor mechanism appears normal. Articular cartilage and bone: There is an irregular full-thickness chondral defect in the medial patella which measures approximately 5 x 5 mm with mild adjacent subchondral marrow edema like signal. Surrounding mild chondral thinning in the remainder of the medial patellar cartilage. Medial and lateral compartment cartilage is normal in thickness. Impression: 1. 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 2. Attenuation of the ACL with mild bony proliferation and mild marrow edema like signal near its proximal attachment, which may reflect sequela of prior partial tear. 3. Chondromalacia patella. Electronically Signed By: Agustina Moreno PA-C [address], [place], [address], [facility] 01/07/2025 10:38:59 Problems Name Problem SNOMED Code Status Onset Date Resolution Date Notes Provider Name and Address Organization Details Recorded Time No complaints 325324011 Active Status : 'A'; Not Available [facility] 4 09:21:17 Pain of right knee joint 2525842747682 00 Active 2024 Katarina Moreno PA-C [address], [place], [address] , [facility] 5 11:34:03 Chondromal acia of right patella 0600059242863 9108 Active 2024 Katarina Moreno PA-C [address], [place], [address] , [facility] 5 11:54:01 Problem Notes None recorded. Medical Equipment None Reported. Allergies No known drug allergies Medications Name Authored On Sig Start Date Stop Date Status Note Indication Fill Status Repeat Number Dispense Quantity LastModified by Organization Details LastModified Time tadal afil 20 mg table t 5 10:18:28 TAKE 1 TABL ET NEED ED ORAL LY ONCE A DAY 6 DAYS 12/31 aborted Not Available Not availab le 0 Not Available Shannan Hernadez [facility] 12/31/2024 10:55:12 Vitals Date Recorded Body height Body mass index (BMI) Body weight Provider Name and Address Organization Details Last Updated DateTime 11/10/2024 177.8 cm 20.8 kg/m2 53362.89 g JORGE LIN [facility] 11/10/2024 10:30:00 Date Recorded Body height Body mass index (BMI) Body weight Provider Name and Address Organization Details Last Updated DateTime 12/31/2024 177.8 cm 20.8 kg/m2 33792.89 g Shannan Hernadez [facility] 12/31/2024 10:54:35 Date Recorded Body height Body mass index (BMI) Body weight Provider Name and Address Organization Details Last Updated DateTime 02/11/2025 177.8 cm 20.8 kg/m2 53521.89 g grady bhandari [place] [facility] 02/11/2025 08:34:01 Social History Social History Observation Description Date Observed Sex Unknown 04/01/2025 Legal Sex Male Status Not (finding) 10/28/20 No social history survey screeners recorded No social history SDOH screeners recorded Functional Status None recorded. No Functional Screening assessment recorded No Functional SDOH screeners recorded Mental Status None recorded. No Mental Screening assessment recorded No Mental SDOH screeners recorded Family History Nothing Reported. Medical History Condition Response Cholesterol Y Past Encounters Encounter ID Performer Location Encounter Start Date Encounter Closed Date Diagnosis/Indication Diagnosis SNOMED-CT Code Diagnosis ICD10 Code Diagnosis IMO Codes Diagnosis Note [id number] [facility] [address] [place] [address] 11/10/2024 10:17:35 11/25/2024 08:47:05 Pain of right knee joint 1319237655 81994 M25.561 [id number] [facility] [address] [place] [address] 12/31/2024 10:46:14 01/18/2025 15:39:56 Derangement of right knee 7116243106 1038574 M23.91 6377277 Pain of ri ght knee joint 1596554889 00408 M25.561 893825 [id number] [facility] [address] [place] [address] 02/11/2025 08:11:47 02/22/2025 12:45:54 Chondromalacia of right patella 7250671122 6253817 M22.41 [id number] Health Concerns Section Related Observation LastModified by Organization Detai ls LastModified Time None Recorded Concern Status LastModified by Organization Details LastModified Time None Recorded SDOH Concern Status LastModified by Organization Det ls LastModified Time None Recorded Advance Directives Directive None Recorded Payers Insurance Date Sequence Insurance Name Policy Number Policy Espinoza Covered Member ID Espinoza Member ID Guarantor Name 02/11/2025 1 [place] [employer] Jeffrey Peoples [id number] Jeffrey Peoples 02/22/2025 2 [facility] - PLAN 1 (MEDICARE SUPPLEMENT) [id number] 1 Jeffrey Peoples [id number] Jeffrey Peoples Notes Date Note Type Note Provider Name and Address Organization Details Recorded Time 5 text/html I am seeing the patient today under the supervision of Dr. Prince who was available but who did not [...] reviewed, updated and is located in the patient s chart. X-RAYS:4v X-rays of the Right knee were ordered, obtained and reviewed today at [facility] demonstrates well-preserved medial lateral compartment spaces, mild patellofemoral space narrowing bilaterally. IMPRESSION: Right knee - chondromalacia patella PLAN: Findings reviewed. Discussed conservative treatment as an appropriate initial option. Physical therapy prescription was provided. Follow-up in 6-8 weeks for recheck, given the time his pain has been ongoing could consider MRI imaging to rule out underlying degenerative meniscus tear. Discussed lihc-ick-zzrzxfk anti-inflammatories as needed and tolerated for pain relief. All of his concerns are addressed and he understands and agrees with the plan. Speech recognition professor of mathematics software was used to create portions of this document. An attempt at proofreading has been made to minimize errors. Please call for corrections. Katarina Moreno PA-C [address] [facility] [address], [place], [address], [facility] 11/10/2024 11:38:54 5 text/html I am seeing the patient today under the supervision of Dr. Curry who was available but who did not see the patient. CLINICAL UPDATE: 69-year-old male patient presents today for right knee recheck. He has been attending physical therapy which he feels has helped gain strength and also extremities. Pain is still bothersome with squatting, stairs. HPI: Presented 11/10/24 for right knee pain ongoing for several years. He reports twisting his knee in the during a hiking accident where he was running down a hill. No recent treatment for his knee. He does report crepitus. Localizes pain to the anterior aspect of the knee. Pain exacerbated with stairs, running or jumping. Denies mechanical catching or locking symptoms. Denies swelling. Past family, social history and review of systems has been reviewed, updated and is located in the patient s chart.X-RAYS:Previous 4v X-rays of the Right knee reviewed today at [facility] demonstrates well-preserved medial lateral compartment spaces, mild patellofemoral space narrowing bilaterally. IMPRESSION: Right knee pain PLAN: Findings reviewed. Discussed he does have some early patellofemoral joint degenerative changes. Patient has been working with physical therapy with improvements in her strength but continues to have pain with squatting and stairs. He elected to proceed with MRI imaging to rule further discussed definitive treatment options. Follow-up for MRI review. Discussed uvmg-kry-zuoreax anti-inflammatories as needed and tolerated for pain relief. All of his concerns are addressed and he understands and agrees with the plan. Speech recognition professor of mathematics software was used to create portions of this document. An attempt at proofreading has been made to minimize errors. Please call for corrections. Katarina Moreno PA-C [address] [facility] [address] [facility], [place], [address], [facility] 12/31/2024 11:37:19 5 text/html I am seeing the patient today under the supervision of Dr. Prince who was available but who did not see the patient. CLINICAL UPDATE: 69-year-old male patient presents today for right knee recheck and MRI review. He has been attending physical therapy which he feels has helped gain strength. Mild discomfort with squatting, stairs. HPI: Presented 11/10/24 for right knee pain ongoing for several years. He reports twisting his knee in the during a hiking accident where he was running down a hill. No recent treatment for his knee. He does report crepitus. Localizes pain to the anterior aspect of the knee. Pain exacerbated with stairs, running or jumping. Denies mechanical catching or locking symptoms. Denies swelling. Past family, social history and review of systems has been reviewed, updated and is located in the patient s chart. X-RAYS:Previous 4v X-rays of the Right knee reviewed today at [facility] demonstrates well-preserved medial lateral compartment spaces, mild patellofemoral space narrowing bilaterally. MRI [facility] 01/06/25 of the right kneeindependently reviewed today demonstrates: No joint effusion. Medial and lateral meniscus appear intact. Possible previous partial ACL tear near proximal attachment. PCL intact. Full thickness chondral defect in medial patellar 5x5mm with bony edema, mild patellar chondromalacia throughout. IMPRESSION: Right knee - chondromalacia patella PLAN: Findings reviewed. Discussed he does have some early patellofemoral joint degenerative changes. Patient has been working with physical therapy with improvements in strength but continues to have mild discomfort with squatting and stairs. Discussed the importance of a low impact exercise program. Discussed sail-brf-ajbfznm anti-inflammatories as needed and tolerated for pain relief. Discussed cortisone injection, viscosupplementation as needed in the future. He declines these options today. He will follow-up as symptoms dictate. All of his concerns are addressed and he understands and agrees with the plan. Speech recognition professor of mathematics software was used to create portions of this document. An attempt at proofreading has been made to minimize errors. Please call for corrections. Katarina Moreno PA-C [address] [facility] [address] [facility], [place], [address], [facility] 02/11/2025 10:35:22 Care Team Name Role Member ID Specialty Address Phone MARE KOO MD Primary Care Provider [id number] [place] [address]
[2025-10-28 10:06] LABS: MANUAL DIFF FLAG NO
[2025-10-28 10:07] LABS: Hematocrit 44.7 % (42.0-52.0); Hemoglobin 15.2 g/dl (14.0-18.0); Imm Gran Abs Auto 0.03 X10*3/uL (0.00-0.03); Imm Gran Pct Auto 0.4 % (0.0-0.4); Lymphocytes Absolute Auto 1.6 X10*3/uL (1.2-4.9); Mean Corpuscular HGB Conc 34.0 g/dl (31.0-36.0); Mean Corpuscular Hemoglobin 30.3 pg (27.0-33.0); Mean Corpuscular Volume 89.2 fL (80.0-98.0); NRBC Abs Auto 0.000 X10*3/uL (0.0-0.012); NRBC Pct Auto 0.0 /100WBC (0.0-0.2); Platelet Count 254 X10*3/uL (160-400); Red Blood Count 5.01 X10*6/uL (4.60-5.80); White Blood Count 7.0 X10*3/uL (4.8-10.8)
[2025-10-28 10:19] LABS: INTERNATIONAL NORM RATIO 1.0 (0.9-1.1); Prothrombin Time 12.5 SEC (11.2-13.5)
[2025-10-28 10:27] VITALS: BP 111/71; PULSE 75; RESP 16; O2SAT 98
[2025-10-28 10:27] LABS: Alanine Aminotransferase 20 U/L (0-40); Albumin Level 4.2 g/dL (3.5-5.0); Alkaline Phosphatase 57 U/L (39-117); Anion Gap 10 (12-20); Aspartate Amino Transferase 20 U/L (5-37); Blood Urea Nitrogen 15 mg/dL (9-16); Calcium 9.1 mg/dL (8.4-10.2); Carbon Dioxide 28 mmol/L (22-29); Chloride 104 mmol/L (96-108); Creatinine Clr Calc Pharmacy 65.9; Estimated Glomerular Filt Rate > 60; Magnesium 2.0 mg/dL (1.6-2.6); Potassium 4.8 mmol/L (3.3-5.1); Sodium 137 mmol/L (135-145); Total Protein 7.3 g/dL (6.5-8.0)
[2025-10-28 10:43] LABS: Resp Syncy Virus RNA Qual PCR NEGATIVE (Negative); SARS COV2 PCR INHOUSE NEGATIVE (Negative)
--- NOTE | 2025-10-28 11:10 | MHC.EDTECH ---
this tech called lab about trop pending, safety tech just placed specimen on analyzer.
[2025-10-28 11:26] LABS: Troponin-I High Sensitivity < 2.7 ng/L (<3.5-35.0)
[2025-10-28 12:59] VITALS: BP 101/69; PULSE 68; RESP 16; O2SAT 98
[2025-10-28 15:01] VITALS: BP 101/69; PULSE 68; RESP 16; TEMP 36.8; O2SAT 98
== END 2025-10-28 15:01 | disposition home or self-care (01) ==
PROVIDERS: Nurse Practitioner; Emergency Provider Emergency Medicine; PCP Internal Medicine Medical Oncology
DX: R51.9 Headache, unspecified (principal); R05.9 Cough, unspecified; I48.91 Unspecified atrial fibrillation; R11.0 Nausea; Z03.818 Encounter for observation for suspected exposure to other biological agents ruled out; Z51.81 Encounter for therapeutic drug level monitoring; Z79.899 Other long term (current) drug therapy
CPT/HCPCS: 36415; 70450; 71045; 80053; 83735; 84484; 85025; 85610; 87637; 93005; 96361; 96374; 96375; 99285; J0737; J1200; J1885

== ENCOUNTER → 2025-10-28 09:40 | Outpatient (BNV) | payer MEDICARE, OTHER, SELFPAY | PROVIDERS: Emergency Provider Emergency Medicine; PCP Internal Medicine Medical Oncology; Visit Provider Internal Medicine Cardiovascular Disease | DX: I48.91 Unspecified atrial fibrillation (principal) | CPT/HCPCS: 93010 ==